=== PATIENT | male | born 1945 | race Caucasian/White ===

== ENCOUNTER → 2016-08-24 | Outpatient (CLI) | payer MEDICARE, BC | LOC: RAD 09:20 | PROVIDERS: ATTEND Internal Medicine Gastroenterology | DX: K70.30 Alcoholic cirrhosis of liver without ascites (principal) | CPT/HCPCS: 74170; 82565 ==

== ENCOUNTER → 2016-10-10 | Outpatient (CLI) | payer MEDICARE, BC ==
--- NOTE | 2016-10-10 13:40 | RADIOLOGY REPORT (SQ) ---
EXAM DESCRIPTION: U/S RETROPERITON (RENAL/AORTA) COMPLETED DATE/TIME: 10/10/2016 10:29 am REASON FOR STUDY: ABN KIDNEY FUNCTION TEST (R94.4) R94.4 ABNORMAL RESULTS OF KIDNEY FUNCTION STUDIE S COMPARISON: CT abdomen pelvis 08/24/2016, 01/14/2016, 08/26/2015 TECHNIQUE: Dynamic and static grayscale images acquired of the kidneys and bladder and recorded on P ACS. Additional selected color Doppler and spectral images recorded. LIMITATIONS: None. FINDINGS: RIGHT KIDNEY: 11.2 cm in length with mild diffuse cortical thinning and increased echogeni city. No solid or suspicious masses. No hydronephrosis. No calcifications. LEFT KIDNEY: 11.7 cm in length with mild diffuse cortical thinning and increased echogenicity. Zenaida l echogenicity. No solid or suspicious masses. No hydronephrosis. No calcifications. BLADDER: Decompressed, not well seen. Left ureteral jet identified. OTHER FINDINGS: No other significant finding. IMPRESSION: No hydronephrosis. Bilateral cortical thinning and mild increased echogenicity from medical renal disease TECHNICAL DOCUMENTATION: JOB ID: [id number]- All Rights Reserved
== END ==
LOC: RAD 09:57
PROVIDERS: ATTEND Physician Assistant
DX: R94.4 Abnormal results of kidney function studies (principal)
CPT/HCPCS: 76770

== ENCOUNTER → 2016-11-12 | Outpatient (CLI) | payer MEDICARE, BC ==
[2016-11-12 17:52] LABS: APPEARANCE,URINE CLEAR; BILIRUBIN,URINE NEGATIVE (NEGATIVE); GLUCOSE, URINE NEGATIVE (NEGATIVE); KETONES,URINE NEGATIVE (NEGATIVE); LEUKOCYTE ESTERASE,URINE NEGATIVE (NEGATIVE); NITRITE,URINE NEGATIVE (NEGATIVE); PROTEIN,URINE 100 mg/dL (NEGATIVE); URINE SPECIFIC GRAVITY 1.013; UROBILINOGEN,URINE NEGATIVE mg/dL (<2.0)
[2016-11-12 17:58] LABS: ABSOLUTE EOSINOPHILS # (AUTO) 0.1 10^3/uL (0.0-0.6); ABSOLUTE LYMPHOCYTES (AUTO) 0.5 10^3/uL (0.5-4.7); ABSOLUTE MONOCYTES (AUTO) 0.3 10^3/uL (0.1-1.4); ABSOLUTE NEUT (AUTO) 1.9 10^3/uL (1.7-8.2); BASOPHILS % (AUTO) 1.1 % (0-2); EOSINOPHILS % (AUTO) 3.8 % (0-6); HEMATOCRIT 32.6 % (37.9-51.0); HEMOGLOBIN 11.6 g/dL (13.5-17.0); HGB HCT DIFFERENCE 2.2; LYMPHOCYTES % (AUTO) 17.1 % (13-45); MEAN CORPUSCULAR HEMOGLOBIN 31.6 pg (27.0-33.4); MEAN CORPUSCULAR HGB CONC 35.6 g/dL (32.0-36.0); MEAN CORPUSCULAR VOLUME 89 fl (80-97); MONOCYTES % (AUTO) 10.7 % (3-13); RED BLOOD COUNT 3.67 10^6/uL (4.35-5.55); RED CELL DISTRIBUTION WIDTH 13.6 % (11.5-14.0); SEGMENTED NEUTROPHILS % (AUTO) 67.3 % (42-78); WHITE BLOOD COUNT 2.9 10^3/uL (4.0-10.5)
[2016-11-12 17:59] LABS: PROTHROMBIN TIME 15.2 SEC (11.4-15.4)
[2016-11-12 18:00] LABS: PARTIAL THROMBOPLASTIN TIME 32.1 SEC (23.5-35.8)
[2016-11-12 18:14] LABS: ALANINE AMINOTRANSFERASE 27 U/L (21-72); ALBUMIN 3.3 g/dL (3.5-5.0); ALKALINE PHOSPHATASE 65 U/L (38-126); ANION GAP 8 (5-19); ASPARTATE AMINO TRANSFERASE 34 U/L (17-59); BILIRUBIN,DIRECT 0.4 mg/dL (0.0-0.4); BILIRUBIN,TOTAL 0.8 mg/dL (0.2-1.3); BLOOD UREA NITROGEN 29 mg/dL (7-20); CALCIUM 8.8 mg/dL (8.4-10.2); CARBON DIOXIDE 26 mmol/L (22-30); CHLORIDE 108 mmol/L (98-107); CREATININE RESULT 1.82 mg/dL (0.52-1.25); GLUCOSE 141 mg/dL (75-110); POTASSIUM 5.5 mmol/L (3.6-5.0); SODIUM 142.2 mmol/L (137-145); TOTAL PROTEIN 7.1 g/dL (6.3-8.2)
== END ==
LOC: OD 16:17
PROVIDERS: ATTEND Internal Medicine Nephrology
DX: N18.3 Chronic kidney disease, stage 3 (moderate) (principal); R18.8 Other ascites; K74.69 Other cirrhosis of liver; I12.9 Hypertensive chronic kidney disease with stage 1 through stage 4 chronic kidney disease, or unspecified chronic kidney disease
CPT/HCPCS: 36415; 80053; 81001; 85025; 85610; 85730

== ENCOUNTER → 2016-11-15 | Outpatient (CLI) | payer MEDICARE, BC ==
[2016-11-15 13:29] LABS: ANION GAP 10 (5-19); BLOOD UREA NITROGEN 26 mg/dL (7-20); CALCIUM 8.6 mg/dL (8.4-10.2); CARBON DIOXIDE 23 mmol/L (22-30); CHLORIDE 107 mmol/L (98-107); CREATININE RESULT 1.84 mg/dL (0.52-1.25); GLUCOSE 105 mg/dL (75-110); POTASSIUM 4.7 mmol/L (3.6-5.0); SODIUM 139.7 mmol/L (137-145)
== END ==
LOC: OD 12:37
PROVIDERS: ATTEND Internal Medicine Nephrology
DX: I12.9 Hypertensive chronic kidney disease with stage 1 through stage 4 chronic kidney disease, or unspecified chronic kidney disease (principal); N18.3 Chronic kidney disease, stage 3 (moderate); R18.8 Other ascites; K74.69 Other cirrhosis of liver
CPT/HCPCS: 36415; 80048; 82140

== ENCOUNTER → 2016-12-24 | Outpatient (CLI) | payer MEDICARE, BC ==
[2016-12-24 15:24] LABS: ALANINE AMINOTRANSFERASE 29 U/L (21-72); ALBUMIN 3.1 g/dL (3.5-5.0); ALKALINE PHOSPHATASE 62 U/L (38-126); ANION GAP 7 (5-19); ASPARTATE AMINO TRANSFERASE 34 U/L (17-59); BILIRUBIN,DIRECT 0.4 mg/dL (0.0-0.4); BILIRUBIN,TOTAL 0.8 mg/dL (0.2-1.3); BLOOD UREA NITROGEN 26 mg/dL (7-20); CALCIUM 9.1 mg/dL (8.4-10.2); CARBON DIOXIDE 26 mmol/L (22-30); CHLORIDE 107 mmol/L (98-107); CREATININE RESULT 1.84 mg/dL (0.52-1.25); GLUCOSE 105 mg/dL (75-110); MAGNESIUM 1.5 mg/dL (1.6-2.3); PHOSPHORUS 3.8 mg/dL (2.5-4.5); POTASSIUM 5.3 mmol/L (3.6-5.0); SODIUM 139.5 mmol/L (137-145); TOTAL PROTEIN 6.6 g/dL (6.3-8.2)
[2016-12-24 16:23] LABS: CALCIUM 9.1 mg/dL (8.4-10.2)
[2016-12-24 16:24] LABS: ALBUMIN 3.1 g/dL (3.5-5.0); ANION GAP 7 (5-19); BLOOD UREA NITROGEN 26 mg/dL (7-20); CARBON DIOXIDE 26 mmol/L (22-30); CHLORIDE 107 mmol/L (98-107); CREATININE RESULT 1.84 mg/dL (0.52-1.25); GLUCOSE 105 mg/dL (75-110); POTASSIUM 5.3 mmol/L (3.6-5.0); SODIUM 139.5 mmol/L (137-145)
[2016-12-24 16:25] LABS: ALANINE AMINOTRANSFERASE 29 U/L (21-72); ALKALINE PHOSPHATASE 62 U/L (38-126); ASPARTATE AMINO TRANSFERASE 34 U/L (17-59); BILIRUBIN,DIRECT 0.4 mg/dL (0.0-0.4); BILIRUBIN,TOTAL 0.8 mg/dL (0.2-1.3)
[2016-12-24 16:26] LABS: TOTAL PROTEIN 6.6 g/dL (6.3-8.2)
[2016-12-25 18:51] LABS: HEMATOCRIT 29.3 % (37.9-51.0); HEMOGLOBIN 10.5 g/dL (13.5-17.0); HGB HCT DIFFERENCE 2.2; MEAN CORPUSCULAR HEMOGLOBIN 31.9 pg (27.0-33.4); MEAN CORPUSCULAR HGB CONC 35.7 g/dL (32.0-36.0); MEAN CORPUSCULAR VOLUME 89 fl (80-97); RED BLOOD COUNT 3.28 10^6/uL (4.35-5.55); RED CELL DISTRIBUTION WIDTH 13.9 % (11.5-14.0); WHITE BLOOD COUNT 2.5 10^3/uL (4.0-10.5)
== END ==
LOC: OD 13:37
PROVIDERS: ATTEND Physician Assistant Surgical
DX: K70.30 Alcoholic cirrhosis of liver without ascites (principal); G93.41 Metabolic encephalopathy; K76.6 Portal hypertension; R53.83 Other fatigue
CPT/HCPCS: 36415; 80053; 82105; 83735; 83970; 84100; 85027

== ENCOUNTER → 2017-01-25 | Outpatient (CLI) | payer MEDICARE, BC ==
[2017-01-25 14:56] LABS: HEMATOCRIT 30.5 % (37.9-51.0); HEMOGLOBIN 10.9 g/dL (13.5-17.0); HGB HCT DIFFERENCE 2.2; MEAN CORPUSCULAR HEMOGLOBIN 32.2 pg (27.0-33.4); MEAN CORPUSCULAR HGB CONC 35.9 g/dL (32.0-36.0); MEAN CORPUSCULAR VOLUME 90 fl (80-97); WHITE BLOOD COUNT 2.5 10^3/uL (4.0-10.5)
[2017-01-25 14:57] LABS: ALANINE AMINOTRANSFERASE 31 U/L (21-72); ALKALINE PHOSPHATASE 64 U/L (38-126); ANION GAP 11 (5-19); ASPARTATE AMINO TRANSFERASE 31 U/L (17-59); BILIRUBIN,DIRECT 0.3 mg/dL (0.0-0.4); BILIRUBIN,TOTAL 0.6 mg/dL (0.2-1.3); BLOOD UREA NITROGEN 26 mg/dL (7-20); CALCIUM 8.2 mg/dL (8.4-10.2); CARBON DIOXIDE 23 mmol/L (22-30); CHLORIDE 109 mmol/L (98-107); CREATININE RESULT 1.81 mg/dL (0.52-1.25); GLUCOSE 178 mg/dL (75-110); MAGNESIUM 1.9 mg/dL (1.6-2.3); POTASSIUM 4.8 mmol/L (3.6-5.0); SODIUM 143.2 mmol/L (137-145); TOTAL PROTEIN 6.3 g/dL (6.3-8.2)
== END ==
LOC: OD 13:10
PROVIDERS: ATTEND Internal Medicine Nephrology
DX: N18.3 Chronic kidney disease, stage 3 (moderate) (principal); E87.5 Hyperkalemia; R18.8 Other ascites
CPT/HCPCS: 36415; 80053; 83735; 85027

== ENCOUNTER → 2017-03-18 | Outpatient (CLI) | payer MEDICARE, BC ==
[2017-03-18 12:09] LABS: HEMATOCRIT 28.7 % (37.9-51.0); HGB HCT DIFFERENCE 1.3; MEAN CORPUSCULAR HEMOGLOBIN 30.7 pg (27.0-33.4); MEAN CORPUSCULAR HGB CONC 34.7 g/dL (32.0-36.0); MEAN CORPUSCULAR VOLUME 89 fl (80-97); PROTHROMBIN TIME 15.9 SEC (11.4-15.4); RED BLOOD COUNT 3.24 10^6/uL (4.35-5.55); RED CELL DISTRIBUTION WIDTH 13.8 % (11.5-14.0); WHITE BLOOD COUNT 3.4 10^3/uL (4.0-10.5)
[2017-03-18 12:37] LABS: ALANINE AMINOTRANSFERASE 30 U/L (21-72); ALBUMIN 2.9 g/dL (3.5-5.0); ALKALINE PHOSPHATASE 78 U/L (38-126); ANION GAP 8 (5-19); ASPARTATE AMINO TRANSFERASE 42 U/L (17-59); BILIRUBIN,DIRECT 0.4 mg/dL (0.0-0.4); BILIRUBIN,TOTAL 0.9 mg/dL (0.2-1.3); BLOOD UREA NITROGEN 33 mg/dL (7-20); CALCIUM 8.6 mg/dL (8.4-10.2); CARBON DIOXIDE 25 mmol/L (22-30); CHLORIDE 112 mmol/L (98-107); CREATININE RESULT 2.18 mg/dL (0.52-1.25); GLUCOSE 112 mg/dL (75-110); POTASSIUM 5.2 mmol/L (3.6-5.0); SODIUM 144.7 mmol/L (137-145); TOTAL PROTEIN 6.5 g/dL (6.3-8.2)
== END ==
LOC: LAB 11:43
PROVIDERS: ATTEND Physician Assistant Surgical
DX: G93.41 Metabolic encephalopathy (principal); K70.31 Alcoholic cirrhosis of liver with ascites
CPT/HCPCS: 36415; 80053; 82140; 85027; 85610

== ENCOUNTER 2017-03-22 07:33 | Day surgery (SDC) | payer MEDICARE, BC ==
[2017-03-22 08:02] LABS: HEMATOCRIT 28.3 % (37.9-51.0); HEMOGLOBIN 9.9 g/dL (13.5-17.0); HGB HCT DIFFERENCE 1.4; MEAN CORPUSCULAR HEMOGLOBIN 31.1 pg (27.0-33.4); MEAN CORPUSCULAR VOLUME 89 fl (80-97); RED BLOOD COUNT 3.18 10^6/uL (4.35-5.55); RED CELL DISTRIBUTION WIDTH 13.6 % (11.5-14.0); WHITE BLOOD COUNT 3.8 10^3/uL (4.0-10.5)
[2017-03-22 08:07] LABS: PARTIAL THROMBOPLASTIN TIME 33.4 SEC (23.5-35.8); PROTHROMBIN TIME 16.2 SEC (11.4-15.4)
[2017-03-22 08:15] LABS: BLOOD UREA NITROGEN 30 mg/dL (7-20); CREATININE RESULT 2.04 mg/dL (0.52-1.25); GLUCOSE 112 mg/dL (75-110)
[2017-03-22] MEDS ORDERED: ALBUMIN HUMAN 250 ML IV PRN (11:00)
[2017-03-22 12:15] LABS: FLUID TYPE PERITONEAL; STAIN REACTIVITY CHECK ACCEPTABLE
[2017-03-22 12:16] LABS: FLUID APPEARANCE CLOUDY; FLUID RBC DILUENT USED SALINE; FLUID RBC DILUTION FACTOR 10; FLUID RBC SIDE 1 129; FLUID RBC SIDE 2 119; TOTAL RBC SQUARES COUNTED FLD 225
[2017-03-22 12:52] VITALS: BP 174/74
--- NOTE | 2017-03-22 13:45 | RADIOLOGY REPORT (SQ) ---
EXAM DESCRIPTION: U/S ABD PARACENTESIS COMPLETED DATE/TIME: 03/22/2017 11:39 am REASON FOR STUDY: ASCITES COMPARISON CT abdomen pelvis 08/24/2016 Abdominal ultrasound 08/12/2015, 10/14/2014 LIMITATIONS: None. PROCEDURE: After obtaining informed consent, the patient was brought to the ultrasound suite. The p rocedure was performed with the patient on a gurney. Ultrasound was used to identify a prominent poc ket of ascites in the right lower quadrant. An appropriate access site was selected. The patient wa s prepped and draped in usual sterile fashion. The access site was anesthetized with 7 mL 1% lidoca ine. A Wdzd-V-Ulscxnxk needle was advanced into the fluid. After aspiration of fluid the needle, th e catheter was advanced off the needle into the fluid. A total of 8,000 mL of cloudy straw-colored f luid was removed. The patient tolerated the procedure well left the department in satisfactory condit ion. Specimens were sent for testing as per Dr. Ernst IMPRESSION: Successful ultrasound-guided diagnostic and therapeutic paracentesis COMMENT: Patient medication list reviewed: Yes- Quality ID# [id number]:Eligible professional attests to doc umenting in the medical record they obtained, updated, or reviewed the patient's current medications. Quality ID #76: The patient was prepped and draped using maximum sterile barrier technique including cap, mask, sterile gown, sterile gloves, a large sterile sheet, hand hygiene, and 2% Chlorhexidine fo r cutaneous antisepsis. When ultrasound is used, sterile ultrasound techniques are followed requiring sterile gel and sterile probes. Quality ID #145: Final reports for procedures using fluoroscopy that document radiation exposure dianelys dylan, or exposure time and number of fluorographic images (if radiation exposure indices are not avail able) TECHNICAL DOCUMENTATION: JOB ID: [id number] [employer]- All Rights Reserved
== END 2017-03-22 12:45 | disposition home or self-care (01) ==
LOC: RAD 07:33
PROVIDERS: ATTEND Internal Medicine Gastroenterology
PROC: 0W9F3ZZ Drainage of Abdominal Wall, Percutaneous Approach (ICD-10-PCS; principal; 2017-03-22)
DX: R18.8 Other ascites (principal); Z79.01 Long term (current) use of anticoagulants; Z79.899 Other long term (current) drug therapy
CPT/HCPCS: 36415; 84520; 82565; 82947; 85027; 85610; 85730; 89050; 88162; 49083; P9047

== ENCOUNTER 2017-04-09 07:31 | Day surgery (SDC) | payer MEDICARE, BC ==
[2017-04-09] MEDS ORDERED: ALBUMIN HUMAN 250 ML IV PRN (07:47)
[2017-04-09 08:30] LABS: HEMATOCRIT 28.9 % (37.9-51.0); MEAN CORPUSCULAR HEMOGLOBIN 30.6 pg (27.0-33.4); MEAN CORPUSCULAR HGB CONC 34.7 g/dL (32.0-36.0); MEAN CORPUSCULAR VOLUME 88 fl (80-97); PLATELET COUNT 105 10^3/uL (150-450); RED BLOOD COUNT 3.28 10^6/uL (4.35-5.55); WHITE BLOOD COUNT 4.3 10^3/uL (4.0-10.5)
[2017-04-09 10:12] LABS: BLOOD UREA NITROGEN 38 mg/dL (7-20); GLUCOSE 115 mg/dL (75-110)
[2017-04-09 10:16] LABS: INTERNATIONAL RATION (INR) 1.26; PROTHROMBIN TIME 16.6 SEC (11.4-15.4)
[2017-04-09 10:17] LABS: PARTIAL THROMBOPLASTIN TIME 39.1 SEC (23.5-35.8)
--- NOTE | 2017-04-09 14:48 | RADIOLOGY REPORT (SQ) ---
EXAM DESCRIPTION: U/S ABD PARACENTESIS COMPLETED DATE/TIME: 04/09/2017 1:17 pm REASON FOR STUDY: ASCITES COMPARISON None. LIMITATIONS: None. PROCEDURE: After obtaining informed consent, the patient was brought to the ultrasound suite. The p rocedure was performed with the patient on a gurney. Ultrasound was used to identify a prominent poc ket of ascites in the right lower quadrant. An appropriate access site was selected. The patient wa s prepped and draped in usual sterile fashion. The access site was anesthetized with 5 mL 1% lidoca ine. A Qafh-V-Wwxlwakj needle was advanced into the fluid. After aspiration of fluid the needle, th e catheter was advanced off the needle into the fluid. A total of 7,850 mL of cloudy yellow fluid wa s removed. The patient tolerated the procedure well left the department in satisfactory condition. IMPRESSION: Successful ultrasound-guided paracentesis COMMENT: Patient medication list reviewed: Yes- Quality ID# [id number]:Eligible professional attests to doc umenting in the medical record they obtained, updated, or reviewed the patient's current medications. Quality ID #[id number]: The patient was prepped and draped using maximum sterile barrier technique including cap, mask, sterile gown, sterile gloves, a large sterile sheet, hand hygiene, and 2% Chlorhexidine fo r cutaneous antisepsis. When ultrasound is used, sterile ultrasound techniques are followed requiring sterile gel and sterile probes. Quality ID #[id number]: Final reports for procedures using fluoroscopy that document radiation exposure dianelys dylan, or exposure time and number of fluorographic images (if radiation exposure indices are not avail able) TECHNICAL DOCUMENTATION: JOB ID: [id number] [employer]- All Rights Reserved
[2017-04-09 16:38] VITALS: BP 145/61
== END 2017-04-09 14:20 | disposition home or self-care (01) ==
LOC: RAD 07:31
PROVIDERS: ATTEND Family Medicine
PROC: 0W9F3ZZ Drainage of Abdominal Wall, Percutaneous Approach (ICD-10-PCS; principal; 2017-04-09)
DX: K70.31 Alcoholic cirrhosis of liver with ascites (principal); K21.9 Gastro-esophageal reflux disease without esophagitis; E87.4 Mixed disorder of acid-base balance; E11.9 Type 2 diabetes mellitus without complications; I25.10 Atherosclerotic heart disease of native coronary artery without angina pectoris; F32.9 Major depressive disorder, single episode, unspecified; G93.40 Encephalopathy, unspecified; D69.59 Other secondary thrombocytopenia; I12.9 Hypertensive chronic kidney disease with stage 1 through stage 4 chronic kidney disease, or unspecified chronic kidney disease; N18.2 Chronic kidney disease, stage 2 (mild); Z79.899 Other long term (current) drug therapy; Z79.84 Long term (current) use of oral hypoglycemic drugs; Z79.4 Long term (current) use of insulin
CPT/HCPCS: 36415; 84520; 82565; 82947; 84132; 85027; 85610; 85730; 49083; P9047

== ENCOUNTER 2017-04-14 07:47 | Inpatient (IN) | payer MEDICARE, BC ==
--- NOTE | 2017-04-14 08:14 | ER Document Report ---
ED General - General Chief Complaint: Abdominal Pain >50 Stated Complaint: ABDOMINAL PAIN Time Seen by Provider: 04/14/17 08:04 Mode of Arrival: Ambulatory Information source: Patient Notes: 71-year-old male history of ascites who had 8 L drained on saturday presents with complaints of abd pain. Pt denies any fevers or chills, denies any nausea or vomiting. Pt admits to abd pain but notes its similar ot his previous fluid overload. TRAVEL OUTSIDE OF THE [place] IN LAST 30 DAYS: No - HPI Onset: Just prior to arrival Onset/Duration: Sudden Quality of pain: Cramping Severity: Mild Pain Level: 1 Associated symptoms: Other - Patient states this is similar to his normal pain from the ascites Exacerbated by: Denies Relieved by: Denies Similar symptoms previously: Yes Recently seen / treated by doctor: Yes - Related Data Allergies/Adverse Reactions: No Known Allergies Allergy (Verified 04/14/17 07:48) Past Medical History - Social History Smoking Status: Never Smoker Cigarette use (# per day): No Chew tobacco use (# tins/day): No Smoking Education Provided: No Family History: Reviewed & Not Pertinent - Past Medical History Cardiac Medical History: Reports: Hx Coronary Artery Disease, Hx Heart Attack, Hx Hypertension Pulmonary Medical History: Denies: Hx Asthma, Hx Bronchitis, Hx COPD, Hx Pneumonia Neurological Medical History: Reports: Hx Seizures - hx of 3 years ago x1. Denies: Hx Cerebrovascular Accident Endocrine Medical History: Reports: Hx Diabetes Mellitus Type 2 GI Medical History: Reports: Hx Gastroesophageal Reflux Disease Musculoskeltal Medical History: Denies Hx Arthritis Psychiatric Medical History: Reports: Hx Anxiety, Hx Depression Past Surgical History: Reports: Hx Cardiac Catheterization - Bypassx4, Hx Cholecystectomy, Hx Coronary Artery Bypass Graft - Immunizations Immunizations up to date: Yes Hx Diphtheria, Pertussis, Tetanus Vaccination: Yes Hx Pneumococcal Vaccination: 04/08/08 Review of Systems - Review of Systems Notes: REVIEW OF SYSTEMS: CONSTITUTIONAL : Denies fever, chills, or sweats. Denies recent illness. EENT: Denies eye, ear, throat, or mouth pain or symptoms. Denies nasal or sinus congestion or discharge. Denies throat, tongue, or mouth swelling or difficulty swallowing. CARDIOVASCULAR: Denies chest pain. Denies palpitations or racing or irregular heart beat. Denies ankle edema. RESPIRATORY: Denies cough, cold, or chest congestion. Denies shortness of breath, difficulty breathing, or wheezing. GASTROINTESTINAL: Abdominal pain distention GENITOURINARY: Denies difficulty urinating, painful urination, burning, frequency, blood in urine, or discharge. MUSCULOSKELETAL: Denies back or neck pain or stiffness. Denies joint pain or swelling. SKIN: Denies rash, lesions or sores. HEMATOLOGIC : Denies easy bruising or bleeding. LYMPHATIC: Denies swollen, enlarged glands. NEUROLOGICAL: Denies confusion or altered mental status. Denies passing out or loss of consciousness. Denies dizziness or lightheadedness. Denies headache. Denies weakness or paralysis or loss of use of either side. Denies problems with gait or speech. Denies sensory loss, numbness, or tingling. Denies seizures. PSYCHIATRIC: Denies anxiety or stress. Denies depression, suicidal ideation, or homicidal ideation. ALL OTHER SYSTEMS REVIEWED AND NEGATIVE. Dictation was performed using [employer] voice recognition software PHYSICAL EXAMINATION: GENERAL: Well-appearing, well-nourished and in no acute distress. HEAD: Atraumatic, normocephalic. EYES: Pupils equal round and reactive to light, extraocular movements intact, sclera anicteric, conjunctiva are normal. ENT: Nares patent, oropharynx clear without exudates. Moist mucous membranes. NECK: Normal range of motion, supple without lymphadenopathy LUNGS: Breath sounds clear to auscultation bilaterally and equal. No wheezes rales or rhonchi. HEART: Regular rate and rhythm without murmurs ABDOMEN: Distended abdomen no tenderness upon palpation Musculoskeletal: Normal range of motion, no pitting or edema. No cyanosis. NEUROLOGICAL: Cranial nerves grossly intact. Normal speech, normal gait. Normal sensory, motor exams PSYCH: Normal mood, normal affect. SKIN: Warm, Dry, normal turgor, no rashes or lesions noted. Physical Exam - Vital signs Vitals: Temp Pulse Resp BP Pulse Ox 97.9 F 60 16 155/67 H 100 04/14/17 07:54 04/14/17 07:54 04/14/17 07:54 04/14/17 07:54 04/14/17 07:54 Course - Re-evaluation Re-evalutation: 04/14/17 08:46 Patient is noted to have gone from 112 kg to 102 kg over a 5 day period, I did speak with his primary care physician who requests that we hold off on antibiotics at this time given that the patient's afebrile until tap was performed, Dr diana was gracious enough to perform procedure for us 04/15/17 07:01 It is noted that the peritoneal fluid was quite cloudy, over 4 L was obtained by the surgeon, patient was immediately started on intraperitoneal Rocephin. Patient will be admitted to primary care - Vital Signs Vital signs: Temp Pulse Resp BP Pulse Ox 98.3 F 81 16 158/69 H 100 04/15/17 04:00 04/15/17 04:00 04/15/17 04:00 04/15/17 04:00 04/15/17 04:00 - Laboratory Result Diagrams: 04/14/17 08:15 04/14/17 08:15 Laboratory results interpreted by me: 04/14/17 04/14/17 08:15 10:19 PT 15.8 H Chloride 112 H Carbon Dioxide 19 L BUN 41 H Creatinine 2.09 H Est GFR ( Amer) 38 L Est GFR (Non-Af Amer) 31 L Glucose 120 H Total Protein 6.1 L Albumin 2.8 L Lipase 396.1 H - Diagnostic Test Radiology reviewed: Image reviewed, Reports reviewed Discharge - Discharge Clinical Impression: SBP (spontaneous bacterial peritonitis), Advanced cirrhosis of liver Condition: Poor Disposition: ADMITTED INPATIENT Admitting Provider: [facility] Admitted: Telemetry
--- NOTE | 2017-04-14 09:23 | RADIOLOGY REPORT (SQ) ---
EXAM DESCRIPTION: CT ABD/PELVIS NO ORAL OR IV COMPLETED DATE/TIME: 04/14/2017 9:13 am REASON FOR STUDY: ascites abd pain COMPARISON: Ultrasound from April [address] from 08/24/2016 TECHNIQUE: CT scan of the abdomen and pelvis performed without intravenous or oral contrast. Images reviewed with lung, soft tissue, and bone windows. Reconstructed coronal and sagittal MPR images revi ewed. All images stored on PACS. All CT scanners at this facility use dose modulation, iterative reconstruction, and/or weight based d osing when appropriate to reduce radiation dose to as low as reasonably achievable (ALARA). [facility]: Dose Right [facility]: CareDose [facility]: Dose Right [facility]: Teradose 4D [facility]: Smart BEAT [employer] RADIATION DOSE: CT Rad equipment meets quality standard of care and radiation dose reduction techniq ues were employed. CTDIvol: 19.7 mGy. DLP: 1211 mGy-cm.mGy. LIMITATIONS: None. FINDINGS: LOWER CHEST: No significant findings. No nodules or infiltrates. NON-CONTRASTED LIVER, SPLEEN, ADRENALS: Evaluation limited by lack of IV contrast. No identified sign ificant masses. Again noted is cirrhotic liver and splenomegaly compatible with portal venous hypert ension. PANCREAS: No masses. No peripancreatic inflammatory changes. GALLBLADDER: No identified stones by CT criteria. No inflammatory changes to suggest cholecystitis. RIGHT KIDNEY AND URETER: Atrophic. No suspicious masses. Assessment limited by lack of IV contrast. No significant calcifications. No hydronephrosis or hydroureter. LEFT KIDNEY AND URETER: Atrophic. No suspicious masses. Assessment limited by lack of IV contrast. No significant calcifications. No hydronephrosis or hydroureter. AORTA AND RETROPERITONEUM: Atherosclerotic calcifications. No aneurysm. No retroperitoneal masses or adenopathy. BOWEL AND PERITONEAL CAVITY: Large volume ascites. Small and large bowel loops are grossly normal. APPENDIX: Normal. PELVIS, BLADDER, AND ABDOMINAL WALL:No abnormal masses. No free fluid. Bladder normal. BONES: No significant findings. OTHER: No other significant finding. IMPRESSION: LARGE VOLUME ASCITES IN A PATIENT WITH KNOWN CIRRHOSIS AND PORTAL VENOUS HYPERTENSION LI MITS EVALUATION FOR IDENTIFYING ACUTE INFLAMMATORY PROCESS ESPECIALLY ON THE NONCONTRAST CT. NO URINARY TRACT CALCULI OR HYDRONEPHROSIS. ADDITIONAL CHRONIC CHANGES ABOVE. COMMENT: Quality ID # [id number]: Final reports with documentation of one or more dose reduction techniques (e.g., Automated exposure control, adjustment of the mA and/or kV according to patient size, use of iterative reconstruction technique) TECHNICAL DOCUMENTATION: JOB ID: [id number] [employer]- All Rights Reserved
[2017-04-14 09:35] LABS: ALANINE AMINOTRANSFERASE 29 U/L (21-72); ALBUMIN 2.8 g/dL (3.5-5.0); ALKALINE PHOSPHATASE 62 U/L (38-126); ANION GAP 9 (5-19); ASPARTATE AMINO TRANSFERASE 39 U/L (17-59); BILIRUBIN,DIRECT 0.4 mg/dL (0.0-0.4); BILIRUBIN,TOTAL 0.8 mg/dL (0.2-1.3); BLOOD UREA NITROGEN 41 mg/dL (7-20); CALCIUM 9.2 mg/dL (8.4-10.2); CARBON DIOXIDE 19 mmol/L (22-30); CHLORIDE 112 mmol/L (98-107); GLUCOSE 120 mg/dL (75-110); LIPASE 396.1 U/L (23-300); POTASSIUM 4.8 mmol/L (3.6-5.0); SODIUM 140.2 mmol/L (137-145); TOTAL PROTEIN 6.1 g/dL (6.3-8.2)
[2017-04-14 10:09] LABS: APPEARANCE,URINE CLEAR; BILIRUBIN,URINE NEGATIVE (NEGATIVE); COLOR,URINE YELLOW; GLUCOSE, URINE NEGATIVE (NEGATIVE); KETONES,URINE NEGATIVE (NEGATIVE); LEUKOCYTE ESTERASE,URINE NEGATIVE (NEGATIVE); NITRITE,URINE NEGATIVE (NEGATIVE); PROTEIN,URINE NEGATIVE (NEGATIVE); URINE SPECIFIC GRAVITY 1.012; UROBILINOGEN,URINE NEGATIVE mg/dL (<2.0)
[2017-04-14] MEDS ORDERED: CEFTRIAXONE 2 GM/D5W RTU 2 GM/50 ML RTUPB IV ONE (12:10)
[2017-04-14] MEDS: ALBUMIN HUMAN 50 ML IV SCH ×4 (13:22→15:58)
[2017-04-14] MEDS ORDERED: ALBUMIN HUMAN 100 ML IV ONE (15:21)
--- NOTE | 2017-04-14 17:28 | OPERATIVE REPORT E ---
Operative Report NAME: DAVID SO : 1945 AGE: 71Y DATE OF SURGERY: 04/14/2017 ROOM: PREOPERATIVE DIAGNOSIS: Ascites, possible infected, with liver cirrhosis. POSTOPERATIVE DIAGNOSIS: Ascites, possible infected, with liver cirrhosis. OPERATION: Paracentesis under ultrasound guidance. SURGEON: JAMIE INGRAM M.D. ANESTHESIA: Local. INDICATION: This is a 71-year-old male who had paracentesis done 5 days ago. About 8 L of fluid was removed. There is a question of possible infection and, therefore, repeat paracentesis is ordered primarily to obtain cultures. PROCEDURE: The patient was placed in supine position and the abdomen interrogated with ultrasound. The appropriate site appears to be at the right lower quadrant close to the old paracentesis site. Next, this area was subsequently prepped and draped in the usual sterile fashion. Local anesthesia infiltrated. The puncture site was then enlarged with an 11 blade. Initial placement of needle did not aspirate any fluid. Because of this, a sterile ultrasound was then placed over the right lower quadrant area and appears the fluid is at least 2.5 cm down and total depth is about 5 cm. Next, a paracentesis needle with a sheath was then passed through the puncture site and the needle removed and the sheath connected to wall suction. About 4 L of cloudy fluid was aspirated slowly. Prior to this, about 60 mL of ascites fluid was aspirated, and they were all sent for culture and protein, electrolytes and amylase levels. It took at least half an hour to fill up the 4 L. Following this, 2 gm of Rocephin was injected slowly into the abdominal cavity. The catheter was subsequently pulled out and a sterile Band-Aid placed over the insertion site. The patient's vital signs remained stable for the procedure. The patient remained alert and oriented without any complaints. The patient tolerated the procedure well. DICTATING PHYSICIAN: JAMIE INGRAM M.D. [id number] PHY#: [id number] ID: [id number] JOB#: [id number] ACCT: [id number] cc:JAMIE INGRAM M.D. >
[2017-04-14 21:40] LABS: ABSOLUTE EOSINOPHILS # (AUTO) 0.1 10^3/uL (0.0-0.6); ABSOLUTE LYMPHOCYTES (AUTO) 0.5 10^3/uL (0.5-4.7); ABSOLUTE MONOCYTES (AUTO) 0.6 10^3/uL (0.1-1.4); ABSOLUTE NEUT (AUTO) 2.2 10^3/uL (1.7-8.2); EOSINOPHILS % (AUTO) 3.4 % (0-6); HEMATOCRIT 28.3 % (37.9-51.0); HEMOGLOBIN 9.8 g/dL (13.5-17.0); LYMPHOCYTES % (AUTO) 14.7 % (13-45); MEAN CORPUSCULAR HEMOGLOBIN 30.6 pg (27.0-33.4); MEAN CORPUSCULAR HGB CONC 34.6 g/dL (32.0-36.0); MEAN CORPUSCULAR VOLUME 88 fl (80-97); MONOCYTES % (AUTO) 17.1 % (3-13); RED CELL DISTRIBUTION WIDTH 14.2 % (11.5-14.0); SEGMENTED NEUTROPHILS % (AUTO) 63.8 % (42-78); TOTAL CELLS COUNTED % (AUTO) 100 %; WHITE BLOOD COUNT 3.4 10^3/uL (4.0-10.5)
[2017-04-14] MEDS ORDERED: DEXTROSE 40% GEL 15 GM TUBE X 2 PO PRN (22:46)
[2017-04-14] MEDS ORDERED: DEXTROSE 50%-WATER SYRINGE 25 GM/50 ML DOSE IV PRN (22:46)
[2017-04-14] MEDS ORDERED: DEXTROSE 40% GEL 15 GM TUBE PO PRN (22:46)
[2017-04-14] MEDS ORDERED: DEXTROSE 50%-WATER SYRINGE 12.5 GM/25 ML DOSE IV PRN (22:46)
[2017-04-14] MEDS ORDERED: GLUCAGON,HUMAN RECOMB 1 MG INJ IM PRN (22:46)
--- NOTE | 2017-04-14 23:40 | EKG REPORT ---
SEVERITY:- ABNORMAL ECG - SINUS RHYTHM MULTIPLE ATRIAL PREMATURE COMPLEXES BORDERLINE T ABNORMALITIES, ANT-LAT LEADS : Confirmed by: Iwona Mark 14-Apr-2017 23:39:55
[2017-04-15] MEDS ORDERED: INSULIN DETEMIR 100 UNIT/ML 3 ML PEN SUBCUT ONE (01:30)
--- NOTE | 2017-04-15 01:44 | HISTORY AND PHYSICAL E ---
History and Physical NAME: DAVID SO : 1945 AGE: 71Y ADMITTED: 04/14/2017 ROOM: 420 CHIEF COMPLAINT: Abdominal pain. HISTORY OF PRESENT ILLNESS: This is a patient of mine with a history of cirrhosis of the liver, history of thrombocytopenia, history of hypertension, hyperlipidemia, type 2 diabetes mellitus, history of alcoholism with recently increasing recurrent ascites, however, last paracentesis was done on Saturday where they removed almost 8 liters of fluid before 2 weeks back was removed another 8 liters of fluid. The patient is currently is seen by Dr. Ernst. The patient apparently is doing fair for several years, but since the last 3-4 months the patient's kidney function has gotten worse. Currently see Dr. Robertson and this ascites is also getting worse. The patient also with significant history of hepatic encephalopathy and currently taking lactulose. The patient came to the emergency department with complaints of abdominal discomfort but no fevers, no other symptoms. Initial workup in the ER with the CBC and Chem-[address] abdomen and pelvis was still significance of the ascites even the 5 days before they removed 8 liters of fluids and were concerned about peritonitis. General surgery was consulted and removed 4 liters of the fluid with cloudy fluids which is mostly likely a possible peritonitis. The patient has received Rocephin and discussed with Dr. Ernst and suggested to start the antibiotic and follow the cultures and admit him to the hospital for further evaluation. This patient otherwise denied any chest pain, denied any shortness of breath. The patient's platelet count is [address] Nair as an outpatient with chronic liver disease. The is at the bedside secondary to the patient's current condition, patient expressed DNR/DNI. PAST MEDICAL HISTORY: 1. Hepatic encephalopathy currently on lactulose. 2. Cirrhosis of the liver. 3. Thrombocytopenia due to the above condition. 4. History of alcoholism in the past and led to the above conditions. 5. Type 2 diabetes mellitus insulin dependent. 6. Hyperlipidemia. 7. Chronic kidney disease. 8. History of seizure disorder. 9. Depression/anxiety. FAMILY HISTORY: Noncontributory. REVIEW OF SYSTEMS: As above, all other pertinents is negative. MEDICATIONS: All reviewed in the patient's chart. PHYSICAL EXAMINATION: VITAL SIGNS: Blood pressure was 145/98, temperature was 98.1, pulse was 80-90, respirations was 16, O2 saturation was 100*% on room air. GENERAL: The patient is alert, awake, oriented x3, in no acute distress. HEAD AND NECK: Normocephalic. PERRLA. LUNGS: No wheezing, no rales, no rhonchi. HEART: S1 and S2 are present. ABDOMEN: Distended, ascites is present, nontender. EXTREMITIES: No edema. NEUROLOGIC: The patient moves all 4 extremities. Alert, awake, oriented x3. DIAGNOSTIC STUDIES: The patient's lab is all reviewed. CT abdomen and pelvis was reviewed, it was positive for ascites. ASSESSMENT: 1. Recurrent ascites, most likely related to alcoholic cirrhosis of the liver with a negative cytology within the last paracentesis. Consult Dr. Ernst for further evaluation. The patient already removed 4 liters of the fluid. 2. Abdominal pain due to the bacterial peritonitis. I will start the patient on IV Rocephin, wait for the culture and sensitivities. 3. Type 2 diabetes mellitus. 4. Alcoholic cirrhosis of the liver. 5. Thrombocytopenia. 6. Hyperlipidemia. 7. Hypertension. 8. Depression. 9. Seizure disorder. PLAN: At this point continue IV antibiotics. Continue to monitor the patient. The patient expressed DNR/DNI and the is agreeing at the bedside. Discussed with Dr. Ernst, put in the consult for him. Continue his other medications. I hope the patient continues to be improved. TIME SPENT: More than 45 minutes spent with the patient in the emergency department. DICTATING PHYSICIAN: YOLI PAYAN M.D. [id number] Mauricio#: [id number] ID: [id number] JOB#: [id number] ACCT: [id number] cc: >
[2017-04-15 04:18] LABS: PROTHROMBIN TIME 15.8 SEC (11.4-15.4)
[2017-04-15 04:19] LABS: INTERNATIONAL RATION (INR) 1.18
[2017-04-15] MEDS: HYDRALAZINE HCL 25 MG TABLET PO SCH ×3 (06:48→22:04)
[2017-04-15] MEDS: LACTULOSE SYRUP 20 GM/30 ML UDCUP PO SCH ×3 (06:49→22:05)
[2017-04-15 07:28] LABS: PLATELET COUNT 78 10^3/uL (150-450)
[2017-04-15 07:32] LABS: FLUID APPEARANCE CLOUDY; FLUID COLOR LIGHT YELLOW; FLUID SOURCE ABDOMEN; FLUID TYPE PERITONEAL; FLUID VISCOSITY LIQUID
[2017-04-15 07:34] LABS: BLOOD UREA NITROGEN 43 mg/dL (7-20); GLUCOSE 111 mg/dL (75-110)
[2017-04-15 07:41] LABS: ABSOLUTE EOSINOPHILS # (AUTO) 0.1 10^3/uL (0.0-0.6); ABSOLUTE LYMPHOCYTES (AUTO) 0.4 10^3/uL (0.5-4.7); ABSOLUTE MONOCYTES (AUTO) 0.4 10^3/uL (0.1-1.4); ABSOLUTE NEUT (AUTO) 1.5 10^3/uL (1.7-8.2); BASOPHILS % (AUTO) 1.2 % (0-2); EOSINOPHILS % (AUTO) 2.7 % (0-6); HEMATOCRIT 26.5 % (37.9-51.0); HEMOGLOBIN 9.2 g/dL (13.5-17.0); LYMPHOCYTES % (AUTO) 16.9 % (13-45); MEAN CORPUSCULAR HEMOGLOBIN 30.5 pg (27.0-33.4); MEAN CORPUSCULAR HGB CONC 34.6 g/dL (32.0-36.0); MEAN CORPUSCULAR VOLUME 88 fl (80-97); MONOCYTES % (AUTO) 18.1 % (3-13); RED CELL DISTRIBUTION WIDTH 14.3 % (11.5-14.0); SEGMENTED NEUTROPHILS % (AUTO) 61.1 % (42-78); TOTAL CELLS COUNTED % (AUTO) 100 %; WHITE BLOOD COUNT 2.4 10^3/uL (4.0-10.5)
[2017-04-15] MEDS ORDERED: FUROSEMIDE 20 MG TABLET PO SCH (08:00)
[2017-04-15 08:11] LABS: ANION GAP 6 (5-19); CARBON DIOXIDE 26 mmol/L (22-30); CHLORIDE 109 mmol/L (98-107); POTASSIUM 4.5 mmol/L (3.6-5.0); SODIUM 141.4 mmol/L (137-145)
[2017-04-15 08:15] LABS: PLATELET COUNT 72 10^3/uL (150-450)
[2017-04-15] MEDS ORDERED: INSULIN LISPRO 100 UNIT/ML 3 ML VIAL ONE (08:57)
--- NOTE | 2017-04-15 09:56 | RADIOLOGY REPORT (SQ) ---
EXAM DESCRIPTION: U/S ABDOMEN LIMITED W/O DOP COMPLETED DATE/TIME: 04/14/2017 11:43 pm REASON FOR STUDY: paracentesis COMPARISON: CT from 04/14/2017 TECHNIQUE: Limited Static and real time culp scale imaging performed of the right lower quadrant. LIMITATIONS: Limited an examination performed. FINDINGS: ASCITES: Large volume ascites right lower quadrant as seen on CT. OTHER: No other significant finding. IMPRESSION: LARGE VOLUME ASCITES. NO SIGNIFICANT CHANGE FROM CT. TECHNICAL DOCUMENTATION: JOB ID: [id number] [employer]- All Rights Reserved
[2017-04-15] MEDS ORDERED: VITAMIN B1 100 MG PO SCH (10:00)
[2017-04-15] MEDS ORDERED: DHA PO SCH (10:00)
[2017-04-15] MEDS ORDERED: FISH OIL PO SCH (10:00)
[2017-04-15] MEDS ORDERED: IRON 65 MG PO SCH (10:00)
[2017-04-15] MEDS ORDERED: EPA PO SCH (10:00)
--- NOTE | 2017-04-15 10:51 | PDOC PROGRESS REPORT ---
Subjective Progress Note for:: 04/15/17 Subjective:: Patient is feeling much better this morning patients have a full liter of the fluid is out yesterday Patient's fluid is a cloudy appearance most likely suggesting bacterial peritonitis but will still waiting for the culture Reason For Visit: BACTERAL PERITENITIS Physical Exam Vital Signs: Temp Pulse Resp BP Pulse Ox 97.8 F 80 16 166/64 H 99 04/15/17 08:07 04/15/17 08:07 04/15/17 08:07 04/15/17 08:07 04/15/17 08:07 Intake & Output 04/14/17 04/15/17 04/16/17 06:59 06:59 06:59 Intake Total 444 Output Total 800 Balance -356 General appearance: PRESENT: no acute distress, well-developed, well-nourished Head exam: PRESENT: atraumatic, normocephalic Eye exam: PRESENT: conjunctiva pink, EOMI, PERRLA. ABSENT: scleral icterus Ear exam: PRESENT: normal external ear exam Mouth exam: PRESENT: moist, tongue midline Neck exam: PRESENT: full ROM. ABSENT: carotid bruit, JVD, lymphadenopathy, thyromegaly Cardiovascular exam: PRESENT: RRR. ABSENT: diastolic murmur, rubs, systolic murmur Pulses: PRESENT: normal dorsalis pedis pul, +2 pedal pulses bilateral Vascular exam: PRESENT: normal capillary refill GI/Abdominal exam: PRESENT: ascites, distended, normal bowel sounds, soft. ABSENT: guarding, mass, organolmegaly, rebound, tenderness Rectal exam: PRESENT: deferred Extremities exam: ABSENT: pedal edema Musculoskeletal exam: PRESENT: ambulatory Neurological exam: PRESENT: alert, awake, oriented to person, oriented to place , oriented to time, oriented to situation, CN II-XII grossly intact. ABSENT: motor sensory deficit Psychiatric exam: PRESENT: appropriate affect, normal mood. ABSENT: homicidal ideation, suicidal ideation Skin exam: PRESENT: dry, intact, warm. ABSENT: cyanosis, rash Results Laboratory Results: 04/15/17 07:02 04/15/17 07:02 04/15/17 04/15/17 07:02 07:02 WBC 2.4 L RBC 3.00 L Hgb 9.2 L Hct 26.5 L MCV 88 MCH 30.5 MCHC 34.6 RDW 14.3 H Plt Count 72 L Seg Neutrophils % 61.1 Lymphocytes % 16.9 Monocytes % 18.1 H Eosinophils % 2.7 Basophils % 1.2 Absolute Neutrophils 1.5 L Absolute Lymphocytes 0.4 L Absolute Monocytes 0.4 Absolute Eosinophils 0.1 Absolute Basophils 0.0 Sodium 141.4 Potassium 4.5 Chloride 109 H Carbon Dioxide 26 Anion Gap 6 BUN 43 H Creatinine 2.06 H Est GFR ( Amer) 39 L Est GFR (Non-Af Amer) 32 L Glucose 111 H Calcium 9.0 Impressions: Abdomen/Pelvis CT 04/14/17 08:40 IMPRESSION: LARGE VOLUME ASCITES IN A PATIENT WITH KNOWN CIRRHOSIS AND PORTAL VENOUS HYPERTENSION LIMITS EVALUATION FOR IDENTIFYING ACUTE INFLAMMATORY PROCESS ESPECIALLY ON THE NONCONTRAST CT. NO URINARY TRACT CALCULI OR HYDRONEPHROSIS. ADDITIONAL CHRONIC CHANGES ABOVE. Abdomen Ultrasound 04/14/17 10:18 IMPRESSION: LARGE VOLUME ASCITES. NO SIGNIFICANT CHANGE FROM CT. Assessment & Plan - Diagnosis (1) SBP (spontaneous bacterial peritonitis) Is this a current diagnosis for this admission?: Yes Plan: Continues to IV Rocephin wait for culture and sensitivity (2) Ascites due to alcoholic cirrhosis Is this a current diagnosis for this admission?: Yes Plan: Recurrent ascites continues to monitor the patient (3) Hepatic encephalopathy Is this a current diagnosis for this admission?: Yes Plan: Continues to lactulose (4) Type 2 diabetes mellitus Qualifiers: Diabetes mellitus complication status: with unspecified complications Is this a current diagnosis for this admission?: Yes Plan: Continues to current medications (5) Kidney disease Is this a current diagnosis for this admission?: Yes Plan: Chronic kidney disease stage III currently stable (6) Hypertension Qualifiers: Hypertension type: essential hypertension Qualified Code(s): I10 - Essential (primary) hypertension Is this a current diagnosis for this admission?: Yes Plan: Continues to current medications (7) Advanced cirrhosis of liver Is this a current diagnosis for this admission?: Yes Plan: Follow with the Dr. 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
[2017-04-15] MEDS: CEFTRIAXONE 2 GM/D5W RTU 2 GM/50 ML RTUPB IV SCH (11:08)
[2017-04-15] MEDS: LANSOPRAZOLE 30 MG TAB.RAP.DR PO SCH (11:09)
[2017-04-15] MEDS: OMEGA-3 ACID ETHYL ESTERS 1 GM CAPSULE PO SCH (11:09)
[2017-04-15] MEDS: NADOLOL 40 MG TABLET PO SCH (11:09)
[2017-04-15] MEDS: EZETIMIBE 10 MG TABLET PO SCH (11:09)
[2017-04-15] MEDS: RIFAXIMIN 550 MG TABLET PO SCH ×2 (11:09→22:03)
[2017-04-15] MEDS: FERROUS SULFATE 325 MG TABLET PO SCH ×2 (11:10→18:10)
[2017-04-15] MEDS: THIAMINE HCL 100 MG TABLET PO SCH (11:10)
[2017-04-15] MEDS: MAGNESIUM OXIDE 400 MG TABLET PO SCH (11:10)
[2017-04-15] MEDS: INSULIN LISPRO 100 UNIT/ML 3 ML VIAL SUBCUT PRN ×3 (13:23→22:11)
--- NOTE | 2017-04-15 19:55 | PDOC CONSULTATION ---
Consultation Consult Date: 04/15/17 History of Present Illness Admission Date/PCP: 04/14/17 15:45 YOLI PAYAN MD History of Present Illness: This is a 71-year-old patient with history of alcoholic cirrhosis, recurrent encephalopathy, and ascites. He was admitted on 04/14/2017 for abdominal pain and increased abdominal swelling. He has been having more problems with his ascites over the last month. I saw him in the office on 03/18/2017 with an 18 pound weight gain over a couple of weeks. He had a large-volume paracenteses on 03/22/2017 with removal of 8 L of fluid. Cell count and cytology were unremarkable. He again was very distended last week and required 8 L of paracentesis on 04/09/2017. He came in this time complaining of abdominal pain that only lasted for a few hours with increased abdominal swelling. Currently he denies abdominal pain, nausea, or vomiting. He had paracentesis yesterday by the surgeon but only 4 L of fluid was removed. His abdomen remained very distended. According to the patient he has been compliant with his low-salt diet. He tells me his last alcohol drink was many weeks ago Past Medical History Cardiac Medical History: Reports: Coronary Artery Disease, Myocardial Infarction , Hypertension Pulmonary Medical History: Denies: Asthma, Bronchitis, Chronic Obstructive Pulmonary Disease (COPD), Pneumonia Neurological Medical History: Reports: Seizures - hx of 3 years ago x1 Endocrine Medical History: Reports: Diabetes Mellitus Type 2 GI Medical History: Reports: Gastroesophageal Reflux Disease Musculoskeltal Medical History: Denies: Arthritis Psychiatric Medical History: Reports: Depression Hematology: Reports: Anemia Past Surgical History Past Surgical History: Reports: Cardiac Catheterization - Bypassx4, Cholecystectomy, Coronary Artery Bypass Graft Social History Smoking Status: Never Smoker Frequency of Alcohol Use: None Hx Recreational Drug Use: No Hx Prescription Drug Abuse: No Family History Family History: Reviewed & Not Pertinent Parental Family History Reviewed: No Children Family History Reviewed: NA Sibling(s) Family History Reviewed.: NA Medication/Allergy Home Medications: Furosemide [Lasix 40 mg Tablet] 20 mg PO QAM 05/22/12 Insulin Lispro [Humalog Insulin (Lispro) 100 unit/mL] 0 units SUBCUT MEALS PRN 05/22/12 Lactulose [Cephulac Syrup 20 gm/30 ml Udcup] 15 ml PO QID 05/22/12 Lansoprazole 30 mg PO DAILY 05/22/12 Nadolol [Corgard 40 mg Tablet] 20 mg PO DAILY 05/22/12 Ergocalciferol (Vitamin D2) [Vitamin D2] 50,000 unit PO TH@1000 PRN 03/21/17 Escitalopram Oxalate [Lexapro] 20 mg PO QHS 03/21/17 Ezetimibe [Zetia] 10 mg PO DAILY 03/21/17 Fish Oil/Dha/Epa [Fish Oil 1,200 mg Fish Oil] 1 tab PO DAILY 03/21/17 Insulin Detemir [Levemir] 25 unit SQ QHS 03/21/17 Iron 325 mg PO BID 03/21/17 Magnesium Oxide [Magnesium] 400 mg PO DAILY 03/21/17 Rifaximin [Xifaxan] 550 mg PO BID 03/21/17 Hydralazine HCl 25 mg PO Q8 04/09/17 Allergies/Adverse Reactions: No Known Allergies Allergy (Verified 04/14/17 07:48) Review of Systems Review of Systems: General: Patient is alert. He is obese HEENT: There is no pallor or jaundice. PERRLA. Oropharynx normal Respiratory: No chest deformity. No respiratory distress. Chest wall palpitation was unremarkable. Breath sounds were normal Cardiovascular: Heart sounds 1 and 2 normal with no murmurs. Abdominal: Abdomen is soft and distended with fluid. Bowel sounds active. Rectal examination was deferred. Extremities: No edema Neurological: Alert and oriented x4. Grossly nonfocal. Normal speech Skin: No significant rash Psychological: He has a flat affect. Physical Exam Vital Signs: Temp Pulse Resp BP Pulse Ox 98.0 F 82 14 150/59 H 100 04/15/17 16:01 04/15/17 16:01 04/15/17 16:01 04/15/17 16:01 04/15/17 16:01 Intake & Output 04/14/17 04/15/17 04/16/17 06:59 06:59 06:59 Intake Total 444 240 Output Total 800 Balance -356 240 Results Laboratory Results: 04/15/17 07:02 04/15/17 07:02 04/15/17 04/15/17 07:02 07:02 WBC 2.4 L RBC 3.00 L Hgb 9.2 L Hct 26.5 L MCV 88 MCH 30.5 MCHC 34.6 RDW 14.3 H Plt Count 72 L Seg Neutrophils % 61.1 Lymphocytes % 16.9 Monocytes % 18.1 H Eosinophils % 2.7 Basophils % 1.2 Absolute Neutrophils 1.5 L Absolute Lymphocytes 0.4 L Absolute Monocytes 0.4 Absolute Eosinophils 0.1 Absolute Basophils 0.0 Sodium 141.4 Potassium 4.5 Chloride 109 H Carbon Dioxide 26 Anion Gap 6 BUN 43 H Creatinine 2.06 H Est GFR ( Amer) 39 L Est GFR (Non-Af Amer) 32 L Glucose 111 H Calcium 9.0 Impressions: Abdomen/Pelvis CT 04/14/17 08:40 IMPRESSION: LARGE VOLUME ASCITES IN A PATIENT WITH KNOWN CIRRHOSIS AND PORTAL VENOUS HYPERTENSION LIMITS EVALUATION FOR IDENTIFYING ACUTE INFLAMMATORY PROCESS ESPECIALLY ON THE NONCONTRAST CT. NO URINARY TRACT CALCULI OR HYDRONEPHROSIS. ADDITIONAL CHRONIC CHANGES ABOVE. Abdomen Ultrasound 04/14/17 10:18 IMPRESSION: LARGE VOLUME ASCITES. NO SIGNIFICANT CHANGE FROM CT. Assessment & Plan - Diagnosis (1) Ascites due to alcoholic cirrhosis Is this a current diagnosis for this admission?: Yes Plan: He has had more difficulty controlling his ascites over the last month. This may just be from more decompensation of his liver but he may also be drinking again and not watching his diet. His CAT scan did not show any new hepatic lesions and his AFP was normal in December of last year. He has required 3 paracenteses in the last month though the last one was only for 4 L. I will perform another large-volume paracentesis on him tomorrow prior to being discharged. He was taking Lasix 20 mg daily on admission and I will increase this to 40 mg daily with close monitoring of his renal function. I am holding off on spironolactone as his potassium is on the high side of normal (2) Advanced cirrhosis of liver Is this a current diagnosis for this admission?: Yes (3) Hepatic encephalopathy Is this a current diagnosis for this admission?: Yes Plan: He is on lactulose and rifaximin (4) Kidney disease Is this a current diagnosis for this admission?: Yes
[2017-04-15] MEDS: ESCITALOPRAM OXALATE 10 MG TABLET PO SCH (22:04)
[2017-04-15] MEDS: INSULIN DETEMIR 100 UNIT/ML 3 ML PEN SUBCUT SCH (22:14)
[2017-04-16 05:37] LABS: ABSOLUTE EOSINOPHILS # (AUTO) 0.1 10^3/uL (0.0-0.6); ABSOLUTE LYMPHOCYTES (AUTO) 0.5 10^3/uL (0.5-4.7); ABSOLUTE MONOCYTES (AUTO) 0.5 10^3/uL (0.1-1.4); ABSOLUTE NEUT (AUTO) 1.6 10^3/uL (1.7-8.2); BASOPHILS % (AUTO) 1.2 % (0-2); EOSINOPHILS % (AUTO) 2.8 % (0-6); HEMATOCRIT 25.3 % (37.9-51.0); HEMOGLOBIN 8.9 g/dL (13.5-17.0); LYMPHOCYTES % (AUTO) 17.1 % (13-45); MEAN CORPUSCULAR HEMOGLOBIN 30.8 pg (27.0-33.4); MEAN CORPUSCULAR HGB CONC 35.1 g/dL (32.0-36.0); MEAN CORPUSCULAR VOLUME 88 fl (80-97); MONOCYTES % (AUTO) 18.9 % (3-13); RED BLOOD COUNT 2.88 10^6/uL (4.35-5.55); RED CELL DISTRIBUTION WIDTH 14.3 % (11.5-14.0); TOTAL CELLS COUNTED % (AUTO) 100 %; WHITE BLOOD COUNT 2.6 10^3/uL (4.0-10.5)
[2017-04-16 05:44] LABS: ANION GAP 10 (5-19); BLOOD UREA NITROGEN 41 mg/dL (7-20); CALCIUM 8.5 mg/dL (8.4-10.2); CARBON DIOXIDE 21 mmol/L (22-30); CHLORIDE 109 mmol/L (98-107); GLUCOSE 140 mg/dL (75-110); POTASSIUM 4.2 mmol/L (3.6-5.0); SODIUM 139.5 mmol/L (137-145)
[2017-04-16 06:14] LABS: PLATELET COUNT 65 10^3/uL (150-450)
[2017-04-16] MEDS: LACTULOSE SYRUP 20 GM/30 ML UDCUP PO SCH ×3 (06:38→21:49)
[2017-04-16] MEDS: HYDRALAZINE HCL 25 MG TABLET PO SCH ×3 (06:38→21:49)
[2017-04-16] MEDS: FERROUS SULFATE 325 MG TABLET PO SCH ×2 (10:08→18:10)
[2017-04-16] MEDS: OMEGA-3 ACID ETHYL ESTERS 1 GM CAPSULE PO SCH (10:08)
[2017-04-16] MEDS: NADOLOL 40 MG TABLET PO SCH (10:08)
[2017-04-16] MEDS: RIFAXIMIN 550 MG TABLET PO SCH ×2 (10:08→21:49)
[2017-04-16] MEDS: THIAMINE HCL 100 MG TABLET PO SCH (10:09)
[2017-04-16] MEDS: MAGNESIUM OXIDE 400 MG TABLET PO SCH (10:09)
[2017-04-16] MEDS: FUROSEMIDE 20 MG TABLET PO SCH (10:09)
[2017-04-16] MEDS: EZETIMIBE 10 MG TABLET PO SCH (10:09)
[2017-04-16] MEDS: CEFTRIAXONE 2 GM/D5W RTU 2 GM/50 ML RTUPB IV SCH (10:10)
[2017-04-16 12:43] LABS: TOTAL PROTEIN BODY FLUID 1.6 g/dL (.)
--- NOTE | 2017-04-16 12:50 | PDOC PROGRESS REPORT ---
Subjective Progress Note for:: 04/16/17 Subjective:: Patient is currently doing fair patient's fluid culture is so far so negative Patient's denied any abdominal pain Patient seen by GI and scheduled for paracentesis today Reason For Visit: BACTERIAL PERITENITIS Physical Exam Vital Signs: Temp Pulse Resp BP Pulse Ox 97.6 F 65 18 128/42 H 100 04/16/17 11:27 04/16/17 11:27 04/16/17 11:27 04/16/17 11:59 04/16/17 11:27 Intake & Output 04/15/17 04/16/17 04/17/17 06:59 06:59 06:59 Intake Total 444 1365 Output Total 800 Balance -356 1365 Weight 106.7 kg General appearance: PRESENT: no acute distress, well-developed, well-nourished Head exam: PRESENT: atraumatic, normocephalic Eye exam: PRESENT: conjunctiva pink, EOMI, PERRLA. ABSENT: scleral icterus Ear exam: PRESENT: normal external ear exam Mouth exam: PRESENT: moist, tongue midline Neck exam: PRESENT: full ROM. ABSENT: carotid bruit, JVD, lymphadenopathy, thyromegaly Respiratory exam: PRESENT: clear to auscultation magda Cardiovascular exam: PRESENT: RRR. ABSENT: diastolic murmur, rubs, systolic murmur Pulses: PRESENT: normal dorsalis pedis pul, +2 pedal pulses bilateral Vascular exam: PRESENT: normal capillary refill GI/Abdominal exam: PRESENT: ascites, distended, normal bowel sounds, soft. ABSENT: guarding, mass, organolmegaly, rebound, tenderness Rectal exam: PRESENT: deferred Musculoskeletal exam: PRESENT: ambulatory Neurological exam: PRESENT: alert, awake, oriented to person, oriented to place , oriented to time, oriented to situation, CN II-XII grossly intact. ABSENT: motor sensory deficit Psychiatric exam: PRESENT: appropriate affect, normal mood. ABSENT: homicidal ideation, suicidal ideation Skin exam: PRESENT: dry, intact, warm. ABSENT: cyanosis, rash Results Laboratory Results: 04/16/17 04:37 04/16/17 04:37 04/16/17 04/16/17 04:37 04:37 WBC 2.6 L RBC 2.88 L Hgb 8.9 L Hct 25.3 L MCV 88 MCH 30.8 MCHC 35.1 RDW 14.3 H Plt Count 65 L Seg Neutrophils % 60.0 Lymphocytes % 17.1 Monocytes % 18.9 H Eosinophils % 2.8 Basophils % 1.2 Absolute Neutrophils 1.6 L Absolute Lymphocytes 0.5 Absolute Monocytes 0.5 Absolute Eosinophils 0.1 Absolute Basophils 0.0 Sodium 139.5 Potassium 4.2 Chloride 109 H Carbon Dioxide 21 L Anion Gap 10 BUN 41 H Creatinine 2.06 H Est GFR ( Amer) 39 L Est GFR (Non-Af Amer) 32 L Glucose 140 H Calcium 8.5 04/14/17 20:20 Clean Catch Midstream Urine Culture - Final NO GROWTH 2 DAYS Impressions: Abdomen/Pelvis CT 04/14/17 08:40 IMPRESSION: LARGE VOLUME ASCITES IN A PATIENT WITH KNOWN CIRRHOSIS AND PORTAL VENOUS HYPERTENSION LIMITS EVALUATION FOR IDENTIFYING ACUTE INFLAMMATORY PROCESS ESPECIALLY ON THE NONCONTRAST CT. NO URINARY TRACT CALCULI OR HYDRONEPHROSIS. ADDITIONAL CHRONIC CHANGES ABOVE. Abdomen Ultrasound 04/14/17 10:18 IMPRESSION: LARGE VOLUME ASCITES. NO SIGNIFICANT CHANGE FROM CT. Assessment & Plan - Diagnosis (1) SBP (spontaneous bacterial peritonitis) Is this a current diagnosis for this admission?: Yes Plan: So far all cultures negatives and patient does not have any pain DC the IV Rocephin (2) Ascites due to alcoholic cirrhosis Is this a current diagnosis for this admission?: Yes Plan: Scheduled for the paracentesis today (3) Hepatic encephalopathy Is this a current diagnosis for this admission?: Yes Plan: Continues to lactulose (4) Type 2 diabetes mellitus Qualifiers: Diabetes mellitus complication status: with unspecified complications Is this a current diagnosis for this admission?: Yes Plan: Continues to current medications (5) Kidney disease Is this a current diagnosis for this admission?: Yes Plan: Chronic kidney disease stage III currently stable (6) Hypertension Qualifiers: Hypertension type: essential hypertension Qualified Code(s): I10 - Essential (primary) hypertension Is this a current diagnosis for this admission?: Yes Plan: Continues to current medications (7) Advanced cirrhosis of liver Is this a current diagnosis for this admission?: Yes Plan: Follow with the Dr. 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
[2017-04-16] MEDS ORDERED: LIDOCAINE 1% INJ-PF (10 MG/ML) 30 ML SDV ONE (15:07)
--- NOTE | 2017-04-16 18:03 | RADIOLOGY REPORT (SQ) ---
EXAM DESCRIPTION: U/S ABD PARACENTESIS COMPLETED DATE/TIME: 04/16/2017 5:42 pm REASON FOR STUDY: ascites, remove 5L of fluid COMPARISON 04/14/2017, 04/09/2017 LIMITATIONS: None. PROCEDURE: After obtaining informed consent, the patient was brought to the ultrasound suite. The p rocedure was performed with the patient on a gurney. Ultrasound was used to identify a prominent poc ket of ascites left lower quadrant. An appropriate access site was selected. The patient was preppe d and draped in usual sterile fashion. The access site was anesthetized with 8 mL 1% lidocaine. A [id number] needle was advanced into the fluid. After aspiration of fluid the needle, the cathet er was advanced off the needle into the fluid. A total of 5,000 mL of cloudy yellow fluid was remove d. The patient tolerated the procedure well left the department in satisfactory condition. No testing on the fluid was performed. IMPRESSION: Successful ultrasound-guided therapeutic paracentesis COMMENT: Patient medication list reviewed: Yes- Quality ID# [id number]:Eligible professional attests to doc umenting in the medical record they obtained, updated, or reviewed the patient's current medications. Quality ID #[id number]: The patient was prepped and draped using maximum sterile barrier technique including cap, mask, sterile gown, sterile gloves, a large sterile sheet, hand hygiene, and 2% Chlorhexidine fo r cutaneous antisepsis. When ultrasound is used, sterile ultrasound techniques are followed requiring sterile gel and sterile probes. Quality ID #[id number]: Final reports for procedures using fluoroscopy that document radiation exposure dianelys dylan, or exposure time and number of fluorographic images (if radiation exposure indices are not avail able) TECHNICAL DOCUMENTATION: JOB ID: [id number] [employer]- All Rights Reserved
[2017-04-16] MEDS: INSULIN LISPRO 100 UNIT/ML 3 ML VIAL SUBCUT PRN (18:10)
[2017-04-16] MEDS: INSULIN DETEMIR 100 UNIT/ML 3 ML PEN SUBCUT SCH (21:49)
[2017-04-16] MEDS: ESCITALOPRAM OXALATE 10 MG TABLET PO SCH (21:49)
[2017-04-17 05:14] LABS: ANION GAP 7 (5-19); BLOOD UREA NITROGEN 43 mg/dL (7-20); CALCIUM 8.6 mg/dL (8.4-10.2); CARBON DIOXIDE 23 mmol/L (22-30); CHLORIDE 110 mmol/L (98-107); GLUCOSE 120 mg/dL (75-110); SODIUM 139.6 mmol/L (137-145)
[2017-04-17 05:25] LABS: POTASSIUM 4.3 mmol/L (3.6-5.0)
[2017-04-17] MEDS: LACTULOSE SYRUP 20 GM/30 ML UDCUP PO SCH (05:38)
[2017-04-17] MEDS: HYDRALAZINE HCL 25 MG TABLET PO SCH (05:39)
[2017-04-17] MEDS: EZETIMIBE 10 MG TABLET PO SCH (08:57)
[2017-04-17] MEDS: OMEGA-3 ACID ETHYL ESTERS 1 GM CAPSULE PO SCH (08:57)
[2017-04-17] MEDS: FERROUS SULFATE 325 MG TABLET PO SCH (08:58)
[2017-04-17] MEDS: MAGNESIUM OXIDE 400 MG TABLET PO SCH (08:58)
[2017-04-17] MEDS: LANSOPRAZOLE 30 MG TAB.RAP.DR PO SCH (08:58)
[2017-04-17] MEDS: NADOLOL 40 MG TABLET PO SCH (08:58)
[2017-04-17] MEDS: FUROSEMIDE 20 MG TABLET PO SCH (09:00)
[2017-04-17] MEDS: THIAMINE HCL 100 MG TABLET PO SCH (09:01)
[2017-04-17] MEDS: CEFTRIAXONE 2 GM/D5W RTU 2 GM/50 ML RTUPB IV SCH (09:01)
[2017-04-17] MEDS: RIFAXIMIN 550 MG TABLET PO SCH (09:01)
--- NOTE | 2017-04-17 09:25 | PDOC DISCHARGE SUMMARY ---
General - Admit/Disc Date/PCP Admission Date/Primary Care Provider: 04/14/17 15:45 YOLI PAYAN MD Discharge Date: 04/17/17 - Discharge Diagnosis (1) SBP (spontaneous bacterial peritonitis) Is this a current diagnosis for this admission?: Yes Summary: As per discussed with Dr. Ernst continues to Cipro for 10 days patient's currently denied any symptoms and remain afebrile and white count is normal (2) Ascites due to alcoholic cirrhosis Is this a current diagnosis for this admission?: Yes Summary: Patients have a remove the another 8 L of the fluid total in this admissions (3) Hepatic encephalopathy Is this a current diagnosis for this admission?: Yes Summary: Continues on lactulose (4) Type 2 diabetes mellitus Is this a current diagnosis for this admission?: Yes Summary: Continues to current medications (5) Kidney disease Is this a current diagnosis for this admission?: Yes Summary: Since follow-up outpatients Dr. Robertson (6) Hypertension Is this a current diagnosis for this admission?: Yes Summary: Currently all stable (7) Advanced cirrhosis of liver Is this a current diagnosis for this admission?: Yes Summary: Continues to current medications - Additional Information Discharge Diet: Diabetic Discharge Activity: Activity As Tolerated Prescriptions: Ciprofloxacin HCl [Cipro 250 mg Tablet] 1 tab PO BID #14 tab Home Medications: Insulin Lispro [Humalog Insulin (Lispro) 100 unit/mL] 0 units SUBCUT MEALS PRN 05/22/12 Lactulose [Cephulac Syrup 20 gm/30 ml Udcup] 15 ml PO QID 05/22/12 Lansoprazole 30 mg PO DAILY 05/22/12 Nadolol [Corgard 40 mg Tablet] 20 mg PO DAILY 05/22/12 Ergocalciferol (Vitamin D2) [Vitamin D2] 50,000 unit PO TH@1000 PRN 03/21/17 Escitalopram Oxalate [Lexapro] 20 mg PO QHS 03/21/17 Fish Oil/Dha/Epa [Fish Oil 1,200 mg Fish Oil] 1 tab PO DAILY 03/21/17 Insulin Detemir [Levemir] 25 unit SQ QHS 03/21/17 Iron 325 mg PO BID 03/21/17 Magnesium Oxide [Magnesium] 400 mg PO DAILY 03/21/17 Rifaximin [Xifaxan] 550 mg PO BID 03/21/17 Hydralazine HCl 25 mg PO Q8 04/09/17 Ciprofloxacin HCl [Cipro 250 mg Tablet] 1 tab PO BID #14 tab 04/16/17 Furosemide [Lasix 40 mg Tablet] 40 mg PO QAM #30 04/16/17 History of Present Illness History of Present Illness: DAVID SO is a 71 year old male This is a 71-year-old male with history of the alcoholic cirrhosis of the liver with the recurrent ascitesHave a paracentesis done twice in the last couple of weeks and remove the more than 60 L of the fluid came to the emergency department with a questionable SBP and abdominal pain and patients underwent for the paracentesis by surgeryGive her 2 g Rocephin fluid and also start on IV Rocephin Patient seen by Dr. Ernst and even the all cultures negative suggest to continue the Cipro and remove the morphology of the fluid and increased the Lasix Patient's otherwise remained stable discussed with the Dr. Ernst and suggest a follow outpatient Discussed with the regarding the patient's current conditions and patient' s discharge home with the stable conditions of the home health and physical therapy Recheck the Chem-7 in 1 week and if is getting worse follow with the Dr. Robertson and reduce the Lasix Physical Exam Vital Signs: Temp Pulse Resp BP Pulse Ox 97.6 F 85 16 140/51 H 100 04/17/17 07:50 04/17/17 07:50 04/17/17 07:50 04/17/17 07:50 04/17/17 07:50 Intake & Output 04/16/17 04/17/17 04/18/17 06:59 06:59 06:59 Intake Total 1365 1120 Output Total 2 Balance 1365 1118 Weight 106.7 kg 101.6 kg General appearance: PRESENT: no acute distress, well-developed, well-nourished Head exam: PRESENT: atraumatic, normocephalic Eye exam: PRESENT: conjunctiva pink, EOMI, PERRLA. ABSENT: scleral icterus Ear exam: PRESENT: normal external ear exam Mouth exam: PRESENT: moist, tongue midline Neck exam: PRESENT: full ROM. ABSENT: carotid bruit, JVD, lymphadenopathy, thyromegaly Respiratory exam: PRESENT: clear to auscultation magda Cardiovascular exam: PRESENT: RRR. ABSENT: diastolic murmur, rubs, systolic murmur Pulses: PRESENT: normal dorsalis pedis pul, +2 pedal pulses bilateral Vascular exam: PRESENT: normal capillary refill GI/Abdominal exam: PRESENT: ascites, distended, normal bowel sounds, soft. ABSENT: guarding, mass, organolmegaly, rebound, tenderness Rectal exam: PRESENT: deferred Extremities exam: ABSENT: pedal edema Neurological exam: PRESENT: alert, awake, oriented to person, oriented to place , oriented to time, oriented to situation, CN II-XII grossly intact. ABSENT: motor sensory deficit Psychiatric exam: PRESENT: appropriate affect, normal mood. ABSENT: homicidal ideation, suicidal ideation Skin exam: PRESENT: dry, intact, warm. ABSENT: cyanosis, rash Results Laboratory Results: 04/16/17 04:37 04/17/17 04:35 04/17/17 04:35 Sodium 139.6 Potassium 4.3 Chloride 110 H Carbon Dioxide 23 Anion Gap 7 BUN 43 H Creatinine 2.21 H Est GFR ( Amer) 36 L Est GFR (Non-Af Amer) 29 L Glucose 120 H Calcium 8.6 04/14/17 20:20 Clean Catch Midstream Urine Culture - Final NO GROWTH 2 DAYS Impressions: Abdomen/Pelvis CT 04/14/17 08:40 IMPRESSION: LARGE VOLUME ASCITES IN A PATIENT WITH KNOWN CIRRHOSIS AND PORTAL VENOUS HYPERTENSION LIMITS EVALUATION FOR IDENTIFYING ACUTE INFLAMMATORY PROCESS ESPECIALLY ON THE NONCONTRAST CT. NO URINARY TRACT CALCULI OR HYDRONEPHROSIS. ADDITIONAL CHRONIC CHANGES ABOVE. Abdomen Ultrasound 04/14/17 10:18 IMPRESSION: LARGE VOLUME ASCITES. NO SIGNIFICANT CHANGE FROM CT. Paracentesis Ultrasound 04/16/17 08:03 IMPRESSION: Successful ultrasound-guided therapeutic paracentesis Plan Time Spent: Greater than 30 Minutes - Following office in 1 week recheck the Chem-[address] Ernst and follow with Dr. Robertson
[2017-04-17 14:47] VITALS: BP 148/54
[2017-04-18] MEDS ORDERED: ERGOCALCIFEROL (VITAMIN D2) 50000 UNIT (1.25 MG) CAPSULE PO SCH (10:00)
== END 2017-04-17 12:30 | disposition home health service (06) | DRG 432 ==
LOC: ER 07:47 → EH 15:45 → 4W 21:30
PROVIDERS: ADMIT Family Medicine; ATTEND Family Medicine
PROC: 0W9G3ZZ Drainage of Peritoneal Cavity, Percutaneous Approach (ICD-10-PCS; 2017-04-14)
PROC: 0W9G3ZZ Drainage of Peritoneal Cavity, Percutaneous Approach (ICD-10-PCS; principal; 2017-04-16)
DX: K70.31 Alcoholic cirrhosis of liver with ascites (principal); K65.2 Spontaneous bacterial peritonitis; K70.40 Alcoholic hepatic failure without coma; I12.9 Hypertensive chronic kidney disease with stage 1 through stage 4 chronic kidney disease, or unspecified chronic kidney disease; E11.22 Type 2 diabetes mellitus with diabetic chronic kidney disease; N18.3 Chronic kidney disease, stage 3 (moderate); N18.9 Chronic kidney disease, unspecified; Z79.84 Long term (current) use of oral hypoglycemic drugs; I25.10 Atherosclerotic heart disease of native coronary artery without angina pectoris; I25.2 Old myocardial infarction; I10 Essential (primary) hypertension; F32.9 Major depressive disorder, single episode, unspecified; F10.20 Alcohol dependence, uncomplicated; Z90.49 Acquired absence of other specified parts of digestive tract; Z95.1 Presence of aortocoronary bypass graft; Z79.4 Long term (current) use of insulin; D69.59 Other secondary thrombocytopenia; F41.9 Anxiety disorder, unspecified; G40.909 Epilepsy, unspecified, not intractable, without status epilepticus; Z66 Do not resuscitate
CPT/HCPCS: 36415; 49083; 74176; 76705; 80048; 80053; 81001; 82150; 82945; 82962; 83615; 83690; 84157; 85025; 85610; 87070; 87075; 87086; 87205; 89050; 93005; 93010; 96365; 96366; 99285; A9270-GY; J0696; J1815; J3490; P9047

== ENCOUNTER 2017-04-19 17:13 | Inpatient (IN) | payer MEDICARE, BC ==
[2017-04-19 18:02] LABS: ABSOLUTE BASOPHILS # (AUTO) 0.1 10^3/uL (0.0-0.2); ABSOLUTE EOSINOPHILS # (AUTO) 0.1 10^3/uL (0.0-0.6); ABSOLUTE LYMPHOCYTES (AUTO) 0.5 10^3/uL (0.5-4.7); ABSOLUTE MONOCYTES (AUTO) 0.5 10^3/uL (0.1-1.4); ABSOLUTE NEUT (AUTO) 3.1 10^3/uL (1.7-8.2); BASOPHILS % (AUTO) 1.2 % (0-2); EOSINOPHILS % (AUTO) 2.5 % (0-6); HEMOGLOBIN 10.3 g/dL (13.5-17.0); LYMPHOCYTES % (AUTO) 10.9 % (13-45); MEAN CORPUSCULAR HEMOGLOBIN 30.5 pg (27.0-33.4); MEAN CORPUSCULAR HGB CONC 34.1 g/dL (32.0-36.0); MEAN CORPUSCULAR VOLUME 89 fl (80-97); RED BLOOD COUNT 3.36 10^6/uL (4.35-5.55); RED CELL DISTRIBUTION WIDTH 14.4 % (11.5-14.0); SEGMENTED NEUTROPHILS % (AUTO) 73.4 % (42-78); TOTAL CELLS COUNTED % (AUTO) 100 %; WHITE BLOOD COUNT 4.2 10^3/uL (4.0-10.5)
[2017-04-19 18:03] LABS: PLATELET COUNT 83 10^3/uL (150-450)
--- NOTE | 2017-04-19 18:21 | EKG REPORT ---
SEVERITY:- ABNORMAL ECG - SINUS RHYTHM MULTIPLE ATRIAL PREMATURE COMPLEXES BORDERLINE LEFT AXIS DEVIATION ABNRM R PROG, CONSIDER ASMI OR LEAD PLACEMENT BORDERLINE T ABNORMALITIES, INFERIOR LEADS : Confirmed by: Remington Reynolds MD 19-Apr-2017 18:20:25
[2017-04-19 18:24] LABS: ALANINE AMINOTRANSFERASE 31 U/L (21-72); ALBUMIN 3.1 g/dL (3.5-5.0); ALKALINE PHOSPHATASE 56 U/L (38-126); ANION GAP 11 (5-19); ASPARTATE AMINO TRANSFERASE 50 U/L (17-59); BILIRUBIN,DIRECT 0.3 mg/dL (0.0-0.4); BILIRUBIN,TOTAL 0.8 mg/dL (0.2-1.3); BLOOD UREA NITROGEN 52 mg/dL (7-20); CALCIUM 8.9 mg/dL (8.4-10.2); CARBON DIOXIDE 20 mmol/L (22-30); CHLORIDE 111 mmol/L (98-107); CREATINE KINASE 63 U/L (55-170); GLUCOSE 146 mg/dL (75-110); POTASSIUM 4.6 mmol/L (3.6-5.0); SODIUM 141.7 mmol/L (137-145); TOTAL PROTEIN 6.3 g/dL (6.3-8.2)
[2017-04-19 18:36] LABS: CREATINE KINASE MB 0.78 ng/mL (<4.55)
[2017-04-19 18:37] LABS: TROPONIN I < 0.012 ng/mL
--- NOTE | 2017-04-19 18:44 | ER Document Report ---
ED General - General Chief Complaint: Altered Mental Status Stated Complaint: WEAKNESS Time Seen by Provider: 04/19/17 18:12 Mode of Arrival: Ambulatory Information source: Patient Notes: 71-year-old male history of ascites secondary to alcoholic cirrhosis who was recently admitted for concerns of bacterial peritonitis presents with complaints of confusion. Patient notes he was discharged on Saturday he was doing well on and then today he cannot walk or feed himself Patient is on lactulose 30 mg 3 times a day TRAVEL OUTSIDE OF THE [place] IN LAST 30 DAYS: No - HPI Onset: This morning Onset/Duration: Persistent Quality of pain: No pain Severity: Moderate Pain Level: Denies Associated symptoms: Other - Confusion Exacerbated by: Denies Relieved by: Denies Similar symptoms previously: Yes Recently seen / treated by doctor: Yes - Related Data Allergies/Adverse Reactions: No Known Allergies Allergy (Verified 04/14/17 07:48) Home Medications: Current Home Medications Ferrous Sulfate [Feosol 325 mg Tablet] 325 mg PO BID 04/19/17 [History] Insulin Lispro [Humalog Insulin (Lispro) 100 unit/mL] See Protocol SQ MEALS 03/25 [History] Ondansetron [Zofran Odt 4 mg Tablet] 4 mg SL TIDP PRN 04/19/17 [History] Past Medical History - Social History Smoking Status: Never Smoker Cigarette use (# per day): No Chew tobacco use (# tins/day): No Smoking Education Provided: No Frequency of alcohol use: None Drug Abuse: None Family History: Reviewed & Not Pertinent Patient has suicidal ideation: No Patient has homicidal ideation: No - Past Medical History Cardiac Medical History: Reports: Hx Coronary Artery Disease, Hx Heart Attack, Hx Hypertension Pulmonary Medical History: Denies: Hx Asthma, Hx Bronchitis, Hx COPD, Hx Pneumonia Neurological Medical History: Reports: Hx Seizures - hx of 3 years ago x1. Denies: Hx Cerebrovascular Accident Endocrine Medical History: Reports: Hx Diabetes Mellitus Type 2 Renal/ Medical History: Denies: Hx Peritoneal Dialysis GI Medical History: Reports: Hx Gastroesophageal Reflux Disease Musculoskeltal Medical History: Denies Hx Arthritis Psychiatric Medical History: Reports: Hx Anxiety, Hx Depression Past Surgical History: Reports: Hx Cardiac Catheterization - Bypassx4, Hx Cholecystectomy, Hx Coronary Artery Bypass Graft - Immunizations Immunizations up to date: Yes Hx Diphtheria, Pertussis, Tetanus Vaccination: Yes Hx Pneumococcal Vaccination: 04/08/08 Review of Systems - Review of Systems Notes: REVIEW OF SYSTEMS: CONSTITUTIONAL : Denies fever, chills, or sweats. Denies recent illness. EENT: Denies eye, ear, throat, or mouth pain or symptoms. Denies nasal or sinus congestion or discharge. Denies throat, tongue, or mouth swelling or difficulty swallowing. CARDIOVASCULAR: Denies chest pain. Denies palpitations or racing or irregular heart beat. Denies ankle edema. RESPIRATORY: Denies cough, cold, or chest congestion. Denies shortness of breath, difficulty breathing, or wheezing. GASTROINTESTINAL: Denies abdominal pain or distention. Denies nausea, vomiting , or diarrhea. Denies blood in vomitus, stools, or per rectum. Denies black, tarry stools. Denies constipation. GENITOURINARY: Denies difficulty urinating, painful urination, burning, frequency, blood in urine, or discharge. MUSCULOSKELETAL: Denies back or neck pain or stiffness. Denies joint pain or swelling. SKIN: Denies rash, lesions or sores. HEMATOLOGIC : Denies easy bruising or bleeding. LYMPHATIC: Denies swollen, enlarged glands. NEUROLOGICAL: Confusion PSYCHIATRIC: Denies anxiety or stress. Denies depression, suicidal ideation, or homicidal ideation. ALL OTHER SYSTEMS REVIEWED AND NEGATIVE. Dictation was performed using [employer] voice recognition software PHYSICAL EXAMINATION: GENERAL: Well-appearing, well-nourished and in no acute distress. HEAD: Atraumatic, normocephalic. EYES: Pupils equal round and reactive to light, extraocular movements intact, sclera anicteric, conjunctiva are normal. ENT: Nares patent, oropharynx clear without exudates. Moist mucous membranes. NECK: Normal range of motion, supple without lymphadenopathy LUNGS: Breath sounds clear to auscultation bilaterally and equal. No wheezes rales or rhonchi. HEART: Regular rate and rhythm without murmurs ABDOMEN: Soft, nontender, nondistended abdomen. No guarding, no rebound. No masses appreciated. Musculoskeletal: Normal range of motion, no pitting or edema. No cyanosis. NEUROLOGICAL: Cranial nerves grossly intact. Normal speech, normal gait. Normal sensory, motor exams patient is quite confused does not remember talking to me a few days prior does not know where he is PSYCH: Normal mood, normal affect. SKIN: Warm, Dry, normal turgor, no rashes or lesions noted. Physical Exam - Vital signs Vitals: Resp 17 04/19/17 17:21 Course - Re-evaluation Re-evalutation: 04/19/17 18:44 My concern is for an infectious process versus hyperammonemia 04/19/17 19:18 Patient's ammonia levels noted to be 101, this would be consistent with his presentation I will admit to his primary care physician 04/19/17 20:[address] Power and will admit the patient to Dr. Payan service - Vital Signs Vital signs: Temp Pulse Resp BP Pulse Ox 51 L 15 195/60 H 100 04/19/17 17:59 04/19/17 19:02 04/19/17 19:02 04/19/17 19:02 - Laboratory Result Diagrams: 04/19/17 17:24 04/19/17 17:24 Laboratory results interpreted by me: 04/19/17 04/19/17 04/19/17 17:24 17:24 18:38 RBC 3.36 L Hgb 10.3 L Hct 30.0 L RDW 14.4 H Plt Count 83 L Lymphocytes % 10.9 L PT 15.9 H APTT 22.4 L Chloride 111 H Carbon Dioxide 20 L BUN 52 H Creatinine 2.57 H Est GFR ( Amer) 30 L Est GFR (Non-Af Amer) 25 L Glucose 146 H Ammonia Albumin 3.1 L 04/19/17 18:38 RBC Hgb Hct RDW Plt Count Lymphocytes % PT APTT Chloride Carbon Dioxide BUN Creatinine Est GFR ( Amer) Est GFR (Non-Af Amer) Glucose Ammonia 101.3 H Albumin Discharge - Discharge Clinical Impression: Advanced cirrhosis of liver, Hepatic encephalopathy, Hyperammonemia Condition: Stable Disposition: ADMITTED INPATIENT Admitting Provider: [facility] Unit Admitted: Medical Floor Referrals: YOLI PAYAN MD [Primary Care Provider] - Follow up as needed
[2017-04-19 19:01] LABS: INTERNATIONAL RATION (INR) 1.19; PARTIAL THROMBOPLASTIN TIME 22.4 SEC (23.5-35.8); PROTHROMBIN TIME 15.9 SEC (11.4-15.4)
[2017-04-19] MEDS ORDERED: LACTULOSE SYRUP 20 GM/30 ML UDCUP PO ONE (19:18)
[2017-04-19 22:03] LABS: APPEARANCE,URINE CLEAR; BILIRUBIN,URINE NEGATIVE (NEGATIVE); COLOR,URINE YELLOW; GLUCOSE, URINE NEGATIVE (NEGATIVE); KETONES,URINE NEGATIVE (NEGATIVE); LEUKOCYTE ESTERASE,URINE NEGATIVE (NEGATIVE); NITRITE,URINE NEGATIVE (NEGATIVE); PROTEIN,URINE NEGATIVE (NEGATIVE); URINE SPECIFIC GRAVITY 1.011; UROBILINOGEN,URINE NEGATIVE mg/dL (<2.0)
[2017-04-20] MEDS ORDERED: ONDANSETRON 4 MG TAB.RAPDIS PO PRN (00:42)
[2017-04-20] MEDS ORDERED: ONDANSETRON 4 MG TAB.RAPDIS SL PRN ×2 (01:00→10:50)
[2017-04-20] MEDS: HYDRALAZINE HCL 25 MG TABLET PO SCH ×3 (06:03→22:31)
[2017-04-20] MEDS ORDERED: LANSOPRAZOLE 30 MG TAB.RAP.DR PO SCH (10:00)
[2017-04-20] MEDS ORDERED: LACTULOSE SYRUP 20 GM/30 ML UDCUP PO SCH ×2 (10:00→14:00)
[2017-04-20] MEDS ORDERED: EPA PO SCH (11:00)
[2017-04-20] MEDS ORDERED: FERROUS SULFATE 325 MG TABLET PO SCH (11:00)
[2017-04-20] MEDS ORDERED: FUROSEMIDE 40 MG TABLET PO SCH (11:00)
[2017-04-20] MEDS ORDERED: FISH OIL PO SCH (11:00)
[2017-04-20] MEDS ORDERED: HYDRALAZINE HCL 25 MG TABLET PO SCH (11:00)
[2017-04-20] MEDS ORDERED: NADOLOL 40 MG TABLET PO SCH (11:00)
[2017-04-20] MEDS ORDERED: RIFAXIMIN 200 MG TABLET PO SCH (11:00)
[2017-04-20] MEDS ORDERED: MAGNESIUM OXIDE 400 MG TABLET PO SCH (11:00)
[2017-04-20] MEDS ORDERED: (PENDING PHARMACY ID) (Lansoprazole [Lansoprazole] 30 MG) PO SCH (11:00)
[2017-04-20] MEDS ORDERED: DHA PO SCH (11:00)
[2017-04-20] MEDS: NADOLOL 40 MG TABLET PO SCH (11:48)
[2017-04-20] MEDS: FERROUS SULFATE 325 MG TABLET PO SCH ×2 (11:49→17:14)
[2017-04-20] MEDS: FUROSEMIDE 40 MG TABLET PO SCH (11:49)
[2017-04-20] MEDS: MAGNESIUM OXIDE 400 MG TABLET PO SCH (11:49)
[2017-04-20] MEDS: RIFAXIMIN 550 MG TABLET PO SCH ×2 (11:50→17:15)
[2017-04-20] MEDS: CIPROFLOXACIN HCL 500 MG TABLET PO SCH ×2 (11:50→17:16)
[2017-04-20] MEDS: OMEGA-3 ACID ETHYL ESTERS 1 GM CAPSULE PO SCH (11:52)
[2017-04-20] MEDS ORDERED: GLUCAGON,HUMAN RECOMB 1 MG INJ IM PRN (15:46)
[2017-04-20] MEDS ORDERED: DEXTROSE 50%-WATER SYRINGE 12.5 GM/25 ML DOSE IV PRN (15:46)
[2017-04-20] MEDS ORDERED: DEXTROSE 40% GEL 15 GM TUBE X 2 PO PRN (15:46)
[2017-04-20] MEDS ORDERED: DEXTROSE 50%-WATER SYRINGE 25 GM/50 ML DOSE IV PRN (15:46)
[2017-04-20] MEDS ORDERED: DEXTROSE 40% GEL 15 GM TUBE PO PRN (15:46)
--- NOTE | 2017-04-20 16:21 | PDOC H&P ---
History of Present Illness Admission Date/PCP: 04/19/17 21:06 YOLI PAYAN MD History of Present Illness: DAVID SO is a 71 year old male, he has a history of alcohol liver cirrhosis, decompensated, complicated with hepatic encephalopathy, portal hypertension with ascites, esophageal varices, history of multiple admission for decompensated liver cirrhosis requiring abdominal paracentesis, recently admitted and discharged couple of days ago when he had abdominal paracentesis with 5 liters of ascites fluid removed ,. The emergency room he was evaluated he was found to have he was brought to the emergency room by family because of confusion, altered mental status, not able to feed self. In the emergency room was evaluated, was found to have elevated serum ammonia level. I could not obtain any history from this patient because is very lethargic and confused the patient spouse gave most of the history she told me that patient has not had a bowel movement on present dose of lactulose, the recommended dose of lactulose is to achieve at least 3 bowel movements, he is presently on lactulose 20 g 3 times a day we have to adjust the dose to achieve bowel movement of 3 a day Past Medical History Cardiac Medical History: Reports: Coronary Artery Disease, Myocardial Infarction , Hypertension Neurological Medical History: Reports: Seizures - hx of 3 years ago x1 Endocrine Medical History: Reports: Diabetes Mellitus Type 2 GI Medical History: Reports: Gastroesophageal Reflux Disease Psychiatric Medical History: Reports: Depression Hematology: Reports: Anemia Past Surgical History Past Surgical History: Reports: Cardiac Catheterization - Bypassx4, Cholecystectomy, Coronary Artery Bypass Graft Social History Smoking Status: Never Smoker Frequency of Alcohol Use: Heavy Hx Recreational Drug Use: No Hx Prescription Drug Abuse: No Family History Family History: Reviewed & Not Pertinent Parental Family History Reviewed: Yes Children Family History Reviewed: Yes Sibling(s) Family History Reviewed.: Yes Medication/Allergy Home Medications: RX: Lactulose [Cephulac Syrup 20 gm/30 ml Udcup] 15 ml PO QID 05/22/12 RX: Lansoprazole 30 mg PO DAILY 05/22/12 RX: Nadolol [Corgard 40 mg Tablet] 20 mg PO DAILY 05/22/12 RX: Ergocalciferol (Vitamin D2) [Vitamin D2] 50,000 unit PO TH@1000 PRN RX: Escitalopram Oxalate [Lexapro] 20 mg PO QHS 03/21/17 RX: Fish Oil/Dha/Epa [Fish Oil 1,200 mg Fish Oil] 1 tab PO DAILY 03/21/17 RX: Insulin Detemir [Levemir] 25 unit SQ QHS 03/21/17 RX: Magnesium Oxide [Magnesium] 400 mg PO DAILY 03/21/17 RX: Rifaximin [Xifaxan] 550 mg PO BID 03/21/17 RX: Hydralazine HCl 25 mg PO Q8 04/09/17 Ciprofloxacin HCl [Cipro 250 mg Tablet] 1 tab PO BID #14 tab 04/16/17 RX: Furosemide [Lasix 40 mg Tablet] 40 mg PO QAM #30 04/16/17 Insulin Lispro [Humalog Insulin (Lispro) 100 unit/mL] See Protocol SQ MEALS 03/25 Ondansetron [Zofran Odt 4 mg Tablet] 4 mg SL TIDP PRN 04/19/17 RX: Ferrous Sulfate [Feosol 325 mg Tablet] 325 mg PO BID 04/19/17 Allergies/Adverse Reactions: No Known Allergies Allergy (Verified 04/14/17 07:48) Review of Systems ROS unobtainable: Due to mental status Physical Exam Vital Signs: Temp Pulse Resp BP Pulse Ox 98.4 F 55 L 16 159/51 H 100 04/20/17 12:34 04/20/17 14:00 04/20/17 12:34 04/20/17 12:34 04/20/17 12:34 Intake & Output 04/19/17 04/20/17 04/21/17 06:59 06:59 06:59 Intake Total 250 Balance 250 Weight 95.5 kg General appearance: PRESENT: other - Stuporous Eye exam: PRESENT: scleral icterus Respiratory exam: PRESENT: clear to auscultation magda Cardiovascular exam: PRESENT: +S1, +S2 GI/Abdominal exam: PRESENT: distended, soft Neurological exam: PRESENT: altered Results Laboratory Results: 04/19/17 21:34 Urine Color YELLOW Urine Appearance CLEAR Urine pH 5.0 Ur Specific Sharples 1.011 Urine Protein NEGATIVE Urine Glucose (UA) NEGATIVE Urine Ketones NEGATIVE Urine Blood NEGATIVE Urine Nitrite NEGATIVE Ur Leukocyte Esterase NEGATIVE Urine RBC (Auto) 1 Assessment & Plan - Diagnosis (1) Hepatic encephalopathy Is this a current diagnosis for this admission?: Yes Plan: Patient is admitted to the hospital, the dose of lactulose to be adjusted to achieve a bowels movement of 3 stools per day. Continue other medications (2) Alcoholic cirrhosis of liver with ascites Is this a current diagnosis for this admission?: Yes
[2017-04-20] MEDS: INSULIN LISPRO 100 UNIT/ML 3 ML VIAL SUBCUT PRN (17:15)
[2017-04-20] MEDS: LACTULOSE SYRUP 20 GM/30 ML UDCUP PO SCH ×2 (17:17→22:31)
[2017-04-20] MEDS ORDERED: INSULIN DETEMIR 25 UNIT SQ SCH (22:00)
[2017-04-20] MEDS: INSULIN DETEMIR 100 UNIT/ML 3 ML PEN SUBCUT SCH (22:31)
[2017-04-20] MEDS: ESCITALOPRAM OXALATE 10 MG TABLET PO SCH (22:31)
[2017-04-21] MEDS: LANSOPRAZOLE 30 MG TAB.RAP.DR PO SCH (06:32)
[2017-04-21] MEDS: HYDRALAZINE HCL 25 MG TABLET PO SCH ×3 (06:32→22:57)
[2017-04-21] MEDS: MAGNESIUM OXIDE 400 MG TABLET PO SCH (10:01)
[2017-04-21] MEDS: RIFAXIMIN 550 MG TABLET PO SCH ×2 (10:01→19:06)
[2017-04-21] MEDS: OMEGA-3 ACID ETHYL ESTERS 1 GM CAPSULE PO SCH (10:01)
[2017-04-21] MEDS: FERROUS SULFATE 325 MG TABLET PO SCH ×2 (10:01→19:06)
[2017-04-21] MEDS: LACTULOSE SYRUP 20 GM/30 ML UDCUP PO SCH ×4 (10:01→22:57)
[2017-04-21] MEDS: FUROSEMIDE 40 MG TABLET PO SCH (10:01)
[2017-04-21] MEDS: NADOLOL 40 MG TABLET PO SCH (10:03)
[2017-04-21] MEDS: CIPROFLOXACIN HCL 500 MG TABLET PO SCH ×2 (10:03→19:06)
[2017-04-21] MEDS: INSULIN LISPRO 100 UNIT/ML 3 ML VIAL SUBCUT PRN ×2 (13:41→19:07)
--- NOTE | 2017-04-21 17:37 | PDOC PROGRESS REPORT ---
Subjective Progress Note for:: 04/28/17 Subjective:: Patient was admitted yesterday for the management of hepatic encephalopathy, he is still very stuporous and confused, he has not had any bowel movement, will transition p.o. lactulose to lactulose enema Reason For Visit: ADVANCED CIRRHOSIS OF LIVER HEPATIC ENCEPHLOPATH Physical Exam Vital Signs: Temp Pulse Resp BP Pulse Ox 98.1 F 69 19 121/63 100 04/21/17 15:39 04/21/17 15:39 04/21/17 15:39 04/21/17 15:39 04/21/17 15:39 Intake & Output 04/20/17 04/21/17 04/22/17 06:59 06:59 06:59 Intake Total 568 767 9746 Output Total 850 225 Balance 250 23 979 Weight 95.5 kg General appearance: PRESENT: other - stupurous Respiratory exam: PRESENT: clear to auscultation magda Cardiovascular exam: PRESENT: +S1, +S2 GI/Abdominal exam: PRESENT: soft Neurological exam: PRESENT: altered Assessment & Plan - Diagnosis (1) Hepatic encephalopathy Is this a current diagnosis for this admission?: Yes Plan: .start lactulose enema (2) Alcoholic cirrhosis of liver with ascites Is this a current diagnosis for this admission?: Yes
[2017-04-21] MEDS: LACTULOSE SYRUP 20 GM/30 ML UDCUP PR SCH (17:53)
[2017-04-21] MEDS: ESCITALOPRAM OXALATE 10 MG TABLET PO SCH (22:57)
[2017-04-21] MEDS: INSULIN DETEMIR 100 UNIT/ML 3 ML PEN SUBCUT SCH (22:58)
[2017-04-22] MEDS: HYDRALAZINE HCL 25 MG TABLET PO SCH ×3 (06:48→21:36)
[2017-04-22] MEDS: LANSOPRAZOLE 30 MG TAB.RAP.DR PO SCH (06:48)
[2017-04-22] MEDS: LACTULOSE SYRUP 20 GM/30 ML UDCUP PR SCH ×2 (06:48→18:33)
[2017-04-22] MEDS: OMEGA-3 ACID ETHYL ESTERS 1 GM CAPSULE PO SCH (10:43)
[2017-04-22] MEDS: CIPROFLOXACIN HCL 500 MG TABLET PO SCH ×2 (10:44→18:26)
[2017-04-22] MEDS: FERROUS SULFATE 325 MG TABLET PO SCH ×2 (10:44→18:26)
[2017-04-22] MEDS: LACTULOSE SYRUP 20 GM/30 ML UDCUP PO SCH ×4 (10:44→21:36)
[2017-04-22] MEDS: NADOLOL 40 MG TABLET PO SCH (10:45)
[2017-04-22] MEDS: MAGNESIUM OXIDE 400 MG TABLET PO SCH (10:45)
[2017-04-22] MEDS: RIFAXIMIN 550 MG TABLET PO SCH ×2 (10:45→18:26)
[2017-04-22] MEDS: FUROSEMIDE 40 MG TABLET PO SCH (10:45)
[2017-04-22 18:56] LABS: ABSOLUTE BASOPHILS # (AUTO) 0.1 10^3/uL (0.0-0.2); ABSOLUTE EOSINOPHILS # (AUTO) 0.2 10^3/uL (0.0-0.6); ABSOLUTE LYMPHOCYTES (AUTO) 0.6 10^3/uL (0.5-4.7); ABSOLUTE MONOCYTES (AUTO) 0.7 10^3/uL (0.1-1.4); ABSOLUTE NEUT (AUTO) 3.3 10^3/uL (1.7-8.2); BASOPHILS % (AUTO) 1.3 % (0-2); EOSINOPHILS % (AUTO) 3.1 % (0-6); HEMATOCRIT 32.3 % (37.9-51.0); HEMOGLOBIN 11.1 g/dL (13.5-17.0); LYMPHOCYTES % (AUTO) 12.2 % (13-45); MEAN CORPUSCULAR HEMOGLOBIN 30.5 pg (27.0-33.4); MEAN CORPUSCULAR HGB CONC 34.3 g/dL (32.0-36.0); MEAN CORPUSCULAR VOLUME 89 fl (80-97); MONOCYTES % (AUTO) 14.8 % (3-13); RED BLOOD COUNT 3.63 10^6/uL (4.35-5.55); RED CELL DISTRIBUTION WIDTH 14.4 % (11.5-14.0); SEGMENTED NEUTROPHILS % (AUTO) 68.6 % (42-78); TOTAL CELLS COUNTED % (AUTO) 100 %; WHITE BLOOD COUNT 4.9 10^3/uL (4.0-10.5)
[2017-04-22 19:10] LABS: ALANINE AMINOTRANSFERASE 37 U/L (21-72); ALBUMIN 3.3 g/dL (3.5-5.0); ALKALINE PHOSPHATASE 58 U/L (38-126); ANION GAP 12 (5-19); ASPARTATE AMINO TRANSFERASE 55 U/L (17-59); BILIRUBIN,DIRECT 0.2 mg/dL (0.0-0.4); BILIRUBIN,TOTAL 0.5 mg/dL (0.2-1.3); BLOOD UREA NITROGEN 48 mg/dL (7-20); CARBON DIOXIDE 22 mmol/L (22-30); CHLORIDE 109 mmol/L (98-107); GLUCOSE 217 mg/dL (75-110); POTASSIUM 4.2 mmol/L (3.6-5.0); TOTAL PROTEIN 6.6 g/dL (6.3-8.2)
[2017-04-22 19:11] LABS: PLATELET COUNT 87 10^3/uL (150-450)
--- NOTE | 2017-04-22 21:03 | PDOC PROGRESS REPORT ---
Subjective Progress Note for:: 04/22/17 Subjective:: Patient was admitted when he presented with hepatic encephalopathy he was completely stuporous the last 2 days. Yesterday he was started on lactulose enema he had more than 3 bowel movement today, patient is alert, responsive communicative a big change from the last 2 days when he was admitted previously he had no bowel movement until today. The lactulose enema will be discontinued and is transitioned to p.o. lactulose. Reason For Visit: ADVANCED CIRRHOSIS OF LIVER HEPATIC ENCEPHLOPATH Physical Exam Vital Signs: Temp Pulse Resp BP Pulse Ox 97.4 F 57 L 18 145/69 H 100 04/22/17 15:17 04/22/17 15:17 04/22/17 15:17 04/22/17 15:17 04/22/17 15:17 Intake & Output 04/21/17 04/22/17 04/23/17 06:59 06:59 06:59 Intake Total 873 1429 2154 Output Total 850 225 4 Balance 23 1204 2150 Weight 102.6 kg General appearance: PRESENT: no acute distress Eye exam: PRESENT: PERRLA Respiratory exam: PRESENT: clear to auscultation magda Cardiovascular exam: PRESENT: +S1, +S2 GI/Abdominal exam: PRESENT: soft Neurological exam: PRESENT: alert, CN II-XII grossly intact Results Laboratory Results: 04/22/17 18:24 04/22/17 18:24 04/22/17 04/22/17 18:24 18:24 WBC 4.9 RBC 3.63 L Hgb 11.1 L Hct 32.3 L MCV 89 MCH 30.5 MCHC 34.3 RDW 14.4 H Plt Count 87 L Seg Neutrophils % 68.6 Lymphocytes % 12.2 L Monocytes % 14.8 H Eosinophils % 3.1 Basophils % 1.3 Absolute Neutrophils 3.3 Absolute Lymphocytes 0.6 Absolute Monocytes 0.7 Absolute Eosinophils 0.2 Absolute Basophils 0.1 Sodium 143.0 Potassium 4.2 Chloride 109 H Carbon Dioxide 22 Anion Gap 12 BUN 48 H Creatinine 2.61 H Est GFR ( Amer) 29 L Est GFR (Non-Af Amer) 24 L Glucose 217 H Calcium 9.0 Total Bilirubin 0.5 AST 55 ALT 37 Alkaline Phosphatase 58 Total Protein 6.6 Albumin 3.3 L Assessment & Plan - Diagnosis (1) Hepatic encephalopathy Is this a current diagnosis for this admission?: Yes (2) Alcoholic cirrhosis of liver with ascites Is this a current diagnosis for this admission?: Yes - Plan Summary Plan Summary: Patient to continue lactulose p.o., rifaximin
[2017-04-22] MEDS: INSULIN DETEMIR 100 UNIT/ML 3 ML PEN SUBCUT SCH (21:36)
[2017-04-22] MEDS: ESCITALOPRAM OXALATE 10 MG TABLET PO SCH (21:36)
[2017-04-23] MEDS: HYDRALAZINE HCL 25 MG TABLET PO SCH ×3 (06:22→22:02)
[2017-04-23] MEDS: LANSOPRAZOLE 30 MG TAB.RAP.DR PO SCH (06:22)
[2017-04-23] MEDS: OMEGA-3 ACID ETHYL ESTERS 1 GM CAPSULE PO SCH (10:31)
[2017-04-23] MEDS: RIFAXIMIN 550 MG TABLET PO SCH ×2 (10:31→18:02)
[2017-04-23] MEDS: NADOLOL 40 MG TABLET PO SCH (10:31)
[2017-04-23] MEDS: LACTULOSE SYRUP 20 GM/30 ML UDCUP PO SCH ×4 (10:31→22:03)
[2017-04-23] MEDS: CIPROFLOXACIN HCL 500 MG TABLET PO SCH ×2 (10:31→22:02)
[2017-04-23] MEDS: FUROSEMIDE 40 MG TABLET PO SCH (10:32)
[2017-04-23] MEDS: FERROUS SULFATE 325 MG TABLET PO SCH ×2 (10:32→17:52)
[2017-04-23] MEDS: MAGNESIUM OXIDE 400 MG TABLET PO SCH (10:32)
--- NOTE | 2017-04-23 20:40 | PDOC CONSULTATION ---
Consultation Consult Date: 04/23/17 Consult reason:: Acute on chronic kidney disease History of Present Illness Admission Date/PCP: 04/19/17 21:06 YOLI PAYAN MD History of Present Illness: DAVID SO is a 71 year old male, he has a history of chronic kidney disease stage 3, seen at the office by Dr. Robertson, alcohol liver cirrhosis, decompensated, complicated with hepatic encephalopathy, portal hypertension with ascites, esophageal varices, history of multiple admission for decompensated liver cirrhosis requiring abdominal paracentesis, recently admitted and discharged couple of days ago when he had abdominal paracentesis with 5 liters of ascites fluid removed. His brought him to emergency room because she said that he was altered and was not acting right. In the emergency room was evaluated, was found to have elevated serum ammonia level. He also was found to have an elevated creatinine. He was given lactulose to help with the ammonia levels. He has been having several bowel movements a day since he was admitted. Today he seems to be more alert and able to answer questions. At the time of examination he was alert and oriented x3. He did seem a little dehydrated at the time of examination. According to him he was staying hydrated prior to his admission. History was obtained from the patient at the time of examination. Past Medical History Cardiac Medical History: Reports: Coronary Artery Disease, Myocardial Infarction Pulmonary Medical History: Denies: Asthma, Bronchitis, Chronic Obstructive Pulmonary Disease (COPD), Pneumonia Neurological Medical History: Reports: Seizures - hx of 3 years ago x1 Endocrine Medical History: Reports: Diabetes Mellitus Type 2 Renal/ Medical History: Reports: Chronic Kidney Disease Stage III GI Medical History: Reports: Gastroesophageal Reflux Disease Musculoskeltal Medical History: Denies: Arthritis Psychiatric Medical History: Reports: Depression Past Surgical History Past Surgical History: Reports: Cardiac Catheterization - Bypassx4, Cholecystectomy, Coronary Artery Bypass Graft Social History Smoking Status: Never Smoker Frequency of Alcohol Use: Heavy Hx Recreational Drug Use: No Hx Prescription Drug Abuse: No Family History Parental Family History Reviewed: No Children Family History Reviewed: NA Sibling(s) Family History Reviewed.: NA Medication/Allergy Home Medications: Lactulose [Cephulac Syrup 20 gm/30 ml Udcup] 15 ml PO QID 05/22/12 Lansoprazole 30 mg PO DAILY 05/22/12 Nadolol [Corgard 40 mg Tablet] 20 mg PO DAILY 05/22/12 Ergocalciferol (Vitamin D2) [Vitamin D2] 50,000 unit PO TH@1000 PRN 03/21/17 Escitalopram Oxalate [Lexapro] 20 mg PO QHS 03/21/17 Fish Oil/Dha/Epa [Fish Oil 1,200 mg Fish Oil] 1 tab PO DAILY 03/21/17 Insulin Detemir [Levemir] 25 unit SQ QHS 03/21/17 Magnesium Oxide [Magnesium] 400 mg PO DAILY 03/21/17 Rifaximin [Xifaxan] 550 mg PO BID 03/21/17 Hydralazine HCl 25 mg PO Q8 04/09/17 Ciprofloxacin HCl [Cipro 250 mg Tablet] 1 tab PO BID #14 tab 04/16/17 Furosemide [Lasix 40 mg Tablet] 40 mg PO QAM #30 04/16/17 Ferrous Sulfate [Feosol 325 mg Tablet] 325 mg PO BID 04/19/17 Insulin Lispro [Humalog Insulin (Lispro) 100 unit/mL] See Protocol SQ MEALS 03/25 Ondansetron [Zofran Odt 4 mg Tablet] 4 mg SL TIDP PRN 04/19/17 Allergies/Adverse Reactions: No Known Allergies Allergy (Verified 04/14/17 07:48) Review of Systems Constitutional: ABSENT: anorexia, chills, fever(s), weakness Eyes: ABSENT: visual disturbances Cardiovascular: ABSENT: chest pain, edema Respiratory: ABSENT: cough, dyspnea, sputum Gastrointestinal: PRESENT: diarrhea - -since starting lactulose. ABSENT: nausea , vomiting Genitourinary: ABSENT: difficulty urinating, dysuria, hematuria Musculoskeletal: ABSENT: back pain, joint swelling, muscle weakness Neurological: PRESENT: confusion. ABSENT: dizziness, numbness, tingling, weakness Psychiatric: ABSENT: anxiety Hematologic/Lymphatic: PRESENT: easy bruising Physical Exam Vital Signs: Temp Pulse Resp BP Pulse Ox 97.5 F 62 16 170/60 H 100 04/23/17 14:42 04/23/17 14:42 04/23/17 14:42 04/23/17 14:42 04/23/17 14:42 Intake & Output 04/22/17 04/23/17 04/24/17 06:59 06:59 06:59 Intake Total 1429 3197 500 Output Total 225 6 Balance 1204 3191 500 Weight 102.6 kg General appearance: PRESENT: no acute distress, well-developed, well-nourished Eye exam: PRESENT: PERRLA. ABSENT: scleral icterus Mouth exam: PRESENT: dry mucosa, tongue midline Neck exam: PRESENT: full ROM. ABSENT: JVD Respiratory exam: PRESENT: clear to auscultation magda. ABSENT: accessory muscle use, chest wall tenderness, crackles, rales, rhonchi, wheezes Cardiovascular exam: PRESENT: RRR, +S1, +S2 GI/Abdominal exam: PRESENT: ascites, distended, firm, rigid. ABSENT: tenderness Extremities exam: ABSENT: pedal edema, tenderness Musculoskeletal exam: PRESENT: normal inspection. ABSENT: deformity, tenderness Neurological exam: PRESENT: alert, awake, oriented to person, oriented to place , oriented to time, oriented to situation Skin exam: PRESENT: dry, intact, warm Results Laboratory Results: 04/22/17 18:24 04/22/17 18:24 Assessment & Plan - Diagnosis (1) [id number] kidney injury Plan: patient kidney injury looks to be due to dehydration. Other possible causes could be worsening do to worsening hepatic function. Do not see a current infection that could be affecting the kidneys. Will get renal ultrasound and will hold lasix. Recommend that he orally rehydrate himself. Will reassess kidney function tomorrow. (2) Kidney disease, chronic, stage III (GFR 30-59 ml/min) Plan: looks to be getting worse discussed with him to rehydrate himself by drinking more water. Also told him that his lasix will be held. (3) Hypertension Qualifiers: Hypertension type: essential hypertension Qualified Code(s): I10 - Essential (primary) hypertension Plan: will look to increase hydralazine to 50mg TID. (4) Alcoholic cirrhosis of liver with ascites Is this a current diagnosis for this admission?: Yes (5) Hepatic encephalopathy Is this a current diagnosis for this admission?: Yes (6) Hyperammonemia Plan: looks to be improving on current lactulose dosage (8) Ascites due to alcoholic cirrhosis Plan: looks to have increased ascites since last paracentesis, currently noted in pain despite accumulation amount
[2017-04-23] MEDS: ESCITALOPRAM OXALATE 10 MG TABLET PO SCH (22:02)
[2017-04-23] MEDS: INSULIN LISPRO 100 UNIT/ML 3 ML VIAL SUBCUT PRN (22:03)
[2017-04-23] MEDS: INSULIN DETEMIR 100 UNIT/ML 3 ML PEN SUBCUT SCH (22:03)
--- NOTE | 2017-04-23 22:36 | PDOC PROGRESS REPORT ---
Subjective Progress Note for:: 04/23/17 Subjective:: Patient was seen by the bedside, he continues to respond to lactulose Reason For Visit: ADVANCED CIRRHOSIS OF LIVER HEPATIC ENCEPHLOPATH Physical Exam Vital Signs: Temp Pulse Resp BP Pulse Ox 97.5 F 62 16 170/60 H 100 04/23/17 14:42 04/23/17 19:00 04/23/17 14:42 04/23/17 14:42 04/23/17 14:42 Intake & Output 04/22/17 04/23/17 04/24/17 06:59 06:59 06:59 Intake Total 1429 3197 500 Output Total 225 6 Balance 1204 3191 500 Weight 102.6 kg General appearance: PRESENT: no acute distress Head exam: PRESENT: atraumatic, normocephalic Eye exam: PRESENT: conjunctiva pink, EOMI, PERRLA Ear exam: PRESENT: normal external ear exam Mouth exam: PRESENT: moist, tongue midline Neck exam: PRESENT: full ROM Cardiovascular exam: PRESENT: RRR, +S1 Pulses: PRESENT: normal dorsalis pedis pul, +2 pedal pulses bilateral Vascular exam: PRESENT: normal capillary refill GI/Abdominal exam: PRESENT: normal bowel sounds, soft. ABSENT: distended, guarding, mass, organolmegaly, rebound, tenderness Rectal exam: PRESENT: deferred Neurological exam: PRESENT: alert, awake, oriented to person, oriented to place , oriented to time, oriented to situation, CN II-XII grossly intact. ABSENT: motor sensory deficit Psychiatric exam: PRESENT: appropriate affect, normal mood. ABSENT: homicidal ideation, suicidal ideation Skin exam: PRESENT: dry, intact, warm. ABSENT: cyanosis, rash Results Laboratory Results: 04/22/17 18:24 04/22/17 18:24 Assessment & Plan - Diagnosis (1) Hepatic encephalopathy Is this a current diagnosis for this admission?: Yes (2) Alcoholic cirrhosis of liver with ascites Is this a current diagnosis for this admission?: Yes (3) Kidney disease, chronic, stage III (GFR 30-59 ml/min) Is this a current diagnosis for this admission?: Yes
[2017-04-24] MEDS: HYDRALAZINE HCL 25 MG TABLET PO SCH ×3 (05:17→22:18)
[2017-04-24] MEDS: LANSOPRAZOLE 30 MG TAB.RAP.DR PO SCH (05:17)
[2017-04-24 05:41] LABS: ALANINE AMINOTRANSFERASE 43 U/L (21-72); ALBUMIN 2.9 g/dL (3.5-5.0); ALKALINE PHOSPHATASE 60 U/L (38-126); ANION GAP 10 (5-19); ASPARTATE AMINO TRANSFERASE 50 U/L (17-59); BILIRUBIN,DIRECT 0.3 mg/dL (0.0-0.4); BILIRUBIN,TOTAL 0.5 mg/dL (0.2-1.3); BLOOD UREA NITROGEN 48 mg/dL (7-20); CALCIUM 8.6 mg/dL (8.4-10.2); CARBON DIOXIDE 20 mmol/L (22-30); CHLORIDE 107 mmol/L (98-107); GLUCOSE 117 mg/dL (75-110); POTASSIUM 3.5 mmol/L (3.6-5.0); SODIUM 136.9 mmol/L (137-145); TOTAL PROTEIN 6.2 g/dL (6.3-8.2)
--- NOTE | 2017-04-24 07:57 | RADIOLOGY REPORT (SQ) ---
EXAM DESCRIPTION: U/S RETROPERITON (RENAL/AORTA) COMPLETED DATE/TIME: 04/24/2017 7:15 am REASON FOR STUDY: MONSERRAT COMPARISON: Abdominal ultrasound 04/14/2017 CT abdomen pelvis 04/14/2017, 08/24/2016 Bilateral renal ultrasound 10/10/2016 TECHNIQUE: Dynamic and static grayscale images acquired of the kidneys and bladder and recorded on P ACS. Additional selected color Doppler and spectral images recorded. LIMITATIONS: Large patient FINDINGS: RIGHT KIDNEY: Normal size, 11 cm in length. Mild increased cortical echogenicity. No adam d or suspicious masses. No hydronephrosis. No calcifications. LEFT KIDNEY: Normal size, 11 cm in length. Mild increased cortical echogenicity. No solid or suspic ious masses. No hydronephrosis. No calcifications. BLADDER: No masses. OTHER FINDINGS: Small amount of ascites IMPRESSION: No hydronephrosis TECHNICAL DOCUMENTATION: JOB ID: [id number] [employer]- All Rights Reserved
[2017-04-24] MEDS: LACTULOSE SYRUP 20 GM/30 ML UDCUP PO SCH ×4 (09:18→22:18)
[2017-04-24] MEDS: NADOLOL 40 MG TABLET PO SCH (09:19)
[2017-04-24] MEDS: MAGNESIUM OXIDE 400 MG TABLET PO SCH (09:19)
[2017-04-24] MEDS: FERROUS SULFATE 325 MG TABLET PO SCH ×2 (09:19→17:23)
[2017-04-24] MEDS: OMEGA-3 ACID ETHYL ESTERS 1 GM CAPSULE PO SCH (09:20)
[2017-04-24] MEDS: CIPROFLOXACIN HCL 500 MG TABLET PO SCH ×2 (09:21→22:17)
[2017-04-24] MEDS: RIFAXIMIN 550 MG TABLET PO SCH ×2 (10:03→17:23)
--- NOTE | 2017-04-24 16:17 | PDOC PROGRESS REPORT ---
Subjective Subjective:: Patient was laying in bed with his by his bed side. She says that he seems more himself today then when they arrived. According the nurse taking care of him today his bottom is starting to became raw because he does not tell them when he is having a bowel movement. This causes him to sit for hours in his own stool. He has had more than three bowel movements today according to him and his . He denies SOB or abdominal pain. Reason For Visit: ADVANCED CIRRHOSIS OF LIVER HEPATIC ENCEPHLOPATH Physical Exam Vital Signs: Temp Pulse Resp BP Pulse Ox 97.9 F 65 14 143/56 H 99 04/24/17 08:00 04/24/17 08:00 04/24/17 08:00 04/24/17 08:00 04/24/17 08:00 Intake & Output 04/23/17 04/24/17 04/25/17 06:59 06:59 06:59 Intake Total 3197 3360 Output Total 6 Balance 3191 3360 General appearance: PRESENT: no acute distress, well-developed, well-nourished Eye exam: PRESENT: PERRLA. ABSENT: scleral icterus Neck exam: PRESENT: full ROM. ABSENT: JVD Respiratory exam: PRESENT: clear to auscultation magda. ABSENT: accessory muscle use, chest wall tenderness, crackles, rales, rhonchi, wheezes Cardiovascular exam: PRESENT: RRR, +S1, +S2 GI/Abdominal exam: PRESENT: ascites, distended, firm, rigid. ABSENT: tenderness Extremities exam: ABSENT: pedal edema, tenderness Musculoskeletal exam: PRESENT: normal inspection. ABSENT: tenderness Neurological exam: PRESENT: alert, awake, oriented to person, oriented to place , oriented to time, oriented to situation Psychiatric exam: PRESENT: appropriate affect, normal mood Skin exam: PRESENT: erythema, intact, rash Results Laboratory Results: 04/22/17 18:24 04/24/17 04:20 04/24/17 04:20 Sodium 136.9 L Potassium 3.5 L Chloride 107 Carbon Dioxide 20 L Anion Gap 10 BUN 48 H Creatinine 2.97 H Est GFR ( Amer) 25 L Est GFR (Non-Af Amer) 21 L Glucose 117 H Calcium 8.6 Total Bilirubin 0.5 AST 50 ALT 43 Alkaline Phosphatase 60 Total Protein 6.2 L Albumin 2.9 L Impressions: Renal Ultrasound 04/24/17 00:00 IMPRESSION: No hydronephrosis Assessment & Plan - Diagnosis (1) Kdrds-yb-umjqmat kidney injury Plan: Will start on NS at 50mL an hour for a day. U/S was negative for any findings for why he has worsening kidney disease (2) Hypokalemia Plan: will order 10mEQ of potassium, could be losing potassium from having diarrhea like bowel movements (3) Kidney disease, chronic, stage III (GFR 30-59 ml/min) Is this a current diagnosis for this admission?: Yes Plan: worsening (4) Hypertension Qualifiers: Hypertension type: essential hypertension Qualified Code(s): I10 - Essential (primary) hypertension Plan: varying, looks to be mostly controlled (5) Alcoholic cirrhosis of liver with ascites Is this a current diagnosis for this admission?: Yes (6) Hepatic encephalopathy Is this a current diagnosis for this admission?: Yes Plan: improved, he was A&Ox3 today (7) Hyperammonemia Plan: looks to be improving on current lactulose dosage, may need to have lactulose decreased
--- NOTE | 2017-04-24 16:41 | PDOC PROGRESS REPORT ---
Subjective Progress Note for:: 04/24/17 Subjective:: Patient is alert he has a lot of loose stool, we reduce lactulose to achieve 3 bowel movements daily Reason For Visit: ADVANCED CIRRHOSIS OF LIVER HEPATIC ENCEPHLOPATH Physical Exam Vital Signs: Temp Pulse Resp BP Pulse Ox 97.9 F 65 14 143/56 H 99 04/24/17 08:00 04/24/17 08:00 04/24/17 08:00 04/24/17 08:00 04/24/17 08:00 Intake & Output 04/23/17 04/24/17 04/25/17 06:59 06:59 06:59 Intake Total 3197 3360 Output Total 6 Balance 3191 3360 General appearance: PRESENT: no acute distress Eye exam: PRESENT: PERRLA Respiratory exam: PRESENT: clear to auscultation magda Cardiovascular exam: PRESENT: +S1, +S2 GI/Abdominal exam: PRESENT: soft Neurological exam: PRESENT: alert Results Laboratory Results: 04/22/17 18:24 04/24/17 04:20 04/24/17 04:20 Sodium 136.9 L Potassium 3.5 L Chloride 107 Carbon Dioxide 20 L Anion Gap 10 BUN 48 H Creatinine 2.97 H Est GFR ( Amer) 25 L Est GFR (Non-Af Amer) 21 L Glucose 117 H Calcium 8.6 Total Bilirubin 0.5 AST 50 ALT 43 Alkaline Phosphatase 60 Total Protein 6.2 L Albumin 2.9 L Impressions: Renal Ultrasound 04/24/17 00:00 IMPRESSION: No hydronephrosis Assessment & Plan - Diagnosis (1) Hepatic encephalopathy Is this a current diagnosis for this admission?: Yes (2) Alcoholic cirrhosis of liver with ascites Is this a current diagnosis for this admission?: Yes (3) Kidney disease, chronic, stage III (GFR 30-59 ml/min) Is this a current diagnosis for this admission?: Yes
[2017-04-24] MEDS: INSULIN LISPRO 100 UNIT/ML 3 ML VIAL SUBCUT PRN (17:32)
[2017-04-24] MEDS ORDERED: POTASSIUM CHLORIDE 10 MEQ TABLET.SA PO ONE (18:00)
[2017-04-24] MEDS: NORMAL SALINE 1000 ML 1,000 ML IV PRN (18:25)
[2017-04-24] MEDS: INSULIN DETEMIR 100 UNIT/ML 3 ML PEN SUBCUT SCH (22:15)
[2017-04-24] MEDS: ESCITALOPRAM OXALATE 10 MG TABLET PO SCH (22:17)
[2017-04-25 05:03] LABS: HEMATOCRIT 23.7 % (37.9-51.0); MEAN CORPUSCULAR HEMOGLOBIN 30.6 pg (27.0-33.4); MEAN CORPUSCULAR HGB CONC 34.9 g/dL (32.0-36.0); MEAN CORPUSCULAR VOLUME 88 fl (80-97); RED CELL DISTRIBUTION WIDTH 13.9 % (11.5-14.0)
[2017-04-25 05:09] LABS: ANION GAP 8 (5-19); BLOOD UREA NITROGEN 57 mg/dL (7-20); CALCIUM 8.1 mg/dL (8.4-10.2); CARBON DIOXIDE 19 mmol/L (22-30); CHLORIDE 108 mmol/L (98-107); GLUCOSE 133 mg/dL (75-110); SODIUM 134.8 mmol/L (137-145)
[2017-04-25 05:24] LABS: HEMOGLOBIN 8.3 g/dL (13.5-17.0); PLATELET COUNT 54 10^3/uL (150-450); WHITE BLOOD COUNT 2.9 10^3/uL (4.0-10.5)
[2017-04-25] MEDS: HYDRALAZINE HCL 25 MG TABLET PO SCH ×3 (05:27→22:13)
[2017-04-25] MEDS: LANSOPRAZOLE 30 MG TAB.RAP.DR PO SCH (05:27)
[2017-04-25] MEDS ORDERED: ERGOCALCIFEROL (VITAMIN D2) 50000 UNIT (1.25 MG) CAPSULE PO SCH (10:00)
[2017-04-25] MEDS: LACTULOSE SYRUP 20 GM/30 ML UDCUP PO SCH ×2 (10:09→22:13)
[2017-04-25] MEDS: RIFAXIMIN 550 MG TABLET PO SCH ×2 (10:09→17:42)
[2017-04-25] MEDS: FERROUS SULFATE 325 MG TABLET PO SCH ×2 (10:10→17:42)
[2017-04-25] MEDS: MAGNESIUM OXIDE 400 MG TABLET PO SCH (10:10)
[2017-04-25] MEDS: OMEGA-3 ACID ETHYL ESTERS 1 GM CAPSULE PO SCH (10:10)
[2017-04-25] MEDS: CIPROFLOXACIN HCL 500 MG TABLET PO SCH ×2 (10:10→22:13)
[2017-04-25] MEDS: NADOLOL 40 MG TABLET PO SCH (10:11)
[2017-04-25] MEDS: NORMAL SALINE 1000 ML 1,000 ML IV PRN (13:55)
[2017-04-25] MEDS: INSULIN LISPRO 100 UNIT/ML 3 ML VIAL SUBCUT PRN (17:41)
[2017-04-25 18:22] LABS: APPEARANCE,URINE CLEAR; BILIRUBIN,URINE NEGATIVE (NEGATIVE); COLOR,URINE YELLOW; GLUCOSE, URINE NEGATIVE (NEGATIVE); KETONES,URINE NEGATIVE (NEGATIVE); LEUKOCYTE ESTERASE,URINE NEGATIVE (NEGATIVE); NITRITE,URINE NEGATIVE (NEGATIVE); PROTEIN,URINE NEGATIVE (NEGATIVE); URINE SPECIFIC GRAVITY 1.012; UROBILINOGEN,URINE NEGATIVE mg/dL (<2.0)
--- NOTE | 2017-04-25 18:56 | PDOC PROGRESS REPORT ---
Subjective Progress Note for:: 04/25/17 Subjective:: Patient was laying in his bed. This time his was not at his bedside. At the time he was A&Ox3. He denied abdominal pain, SOB, or chest pain. According to the nurse his bowel movements have decreased since decreasing lactulose. She has not seen blood in his stools and the stools was not dark. Urine output is hard to determine due to incontinence. Reason For Visit: ADVANCED CIRRHOSIS OF LIVER HEPATIC ENCEPHLOPATH Physical Exam Vital Signs: Temp Pulse Resp BP Pulse Ox 97.6 F 61 16 130/34 H 99 04/25/17 15:44 04/25/17 15:44 04/25/17 15:44 04/25/17 15:44 04/25/17 15:44 Intake & Output 04/24/17 04/25/17 04/26/17 06:59 06:59 06:59 Intake Total 3360 2229 887 Output Total 200 Balance 3360 2029 887 Weight 106.2 kg General appearance: PRESENT: no acute distress, well-developed, well-nourished Mouth exam: PRESENT: dry mucosa, tongue midline Neck exam: PRESENT: full ROM. ABSENT: JVD Respiratory exam: PRESENT: clear to auscultation magda. ABSENT: accessory muscle use, chest wall tenderness, crackles, rales, rhonchi, wheezes Cardiovascular exam: PRESENT: RRR, +S1, +S2 GI/Abdominal exam: PRESENT: ascites, distended, firm, rigid. ABSENT: tenderness Extremities exam: ABSENT: pedal edema, tenderness Musculoskeletal exam: PRESENT: normal inspection. ABSENT: tenderness Neurological exam: PRESENT: alert, awake, oriented to person, oriented to place , oriented to time, oriented to situation Psychiatric exam: PRESENT: appropriate affect, normal mood Skin exam: PRESENT: dry, intact Results Laboratory Results: 04/25/17 04:20 04/25/17 04:20 04/25/17 04/25/17 04/25/17 04:20 04:20 17:52 WBC 2.9 L D RBC 2.70 L Hgb 8.3 L D Hct 23.7 L MCV 88 MCH 30.6 MCHC 34.9 RDW 13.9 Plt Count 54 L Sodium 134.8 L Potassium 4.0 Chloride 108 H Carbon Dioxide 19 L Anion Gap 8 BUN 57 H Creatinine 2.98 H Est GFR ( Amer) 25 L Est GFR (Non-Af Amer) 21 L Glucose 133 H Calcium 8.1 L Urine Color YELLOW Urine Appearance CLEAR Urine pH 5.0 Ur Specific [place] 1.012 Urine Protein NEGATIVE Urine Glucose (UA) NEGATIVE Urine Ketones NEGATIVE Urine Blood NEGATIVE Urine Nitrite NEGATIVE Ur Leukocyte Esterase NEGATIVE Urine WBC (Auto) 0 Urine RBC (Auto) 0 Impressions: Renal Ultrasound 04/24/17 00:00 IMPRESSION: No hydronephrosis Assessment & Plan - Diagnosis (1) Kovpg-do-ovhhymy kidney injury Plan: Will increase NS to 75mL an hour for a day. Further damage of the kidneys could be from prolonged antibiotic use. Getting a UA and ramos catheter. The ramos catheter will also help to keep track of urine output (2) Hypokalemia Plan: stable (3) Kidney disease, chronic, stage III (GFR 30-59 ml/min) Is this a current diagnosis for this admission?: Yes Plan: drawing PTH (4) Hypertension Qualifiers: Hypertension type: essential hypertension Qualified Code(s): I10 - Essential (primary) hypertension Plan: currently controlled (5) Alcoholic cirrhosis of liver with ascites Is this a current diagnosis for this admission?: Yes (6) Hepatic encephalopathy Is this a current diagnosis for this admission?: Yes (10) Metabolic acidosis Plan: currently stable, will start on sodium bicarb if it does not improve tomorrow (11) Anemia Plan: nurse is going to discuss with primary about what he wants to do.
--- NOTE | 2017-04-25 20:46 | PDOC PROGRESS REPORT ---
Subjective Progress Note for:: 04/25/17 Subjective:: Patient was admitted for hepatic encephalopathy, history of ascites from portal hypertension, the abdomen is distended again, he may need abdominal paracentesis Reason For Visit: ADVANCED CIRRHOSIS OF LIVER HEPATIC ENCEPHLOPATH Physical Exam Vital Signs: Temp Pulse Resp BP Pulse Ox 97.6 F 54 L 16 130/34 H 99 04/25/17 15:44 04/25/17 19:00 04/25/17 15:44 04/25/17 15:44 04/25/17 15:44 Intake & Output 04/24/17 04/25/17 04/26/17 06:59 06:59 06:59 Intake Total 3360 2229 887 Output Total 200 Balance 3360 9 887 Weight 106.2 kg General appearance: PRESENT: no acute distress Eye exam: PRESENT: PERRLA Respiratory exam: PRESENT: clear to auscultation magda Cardiovascular exam: PRESENT: +S1, +S2 GI/Abdominal exam: PRESENT: distended Neurological exam: PRESENT: alert Results Laboratory Results: 04/25/17 04:20 04/25/17 04:20 04/25/17 04/25/17 04/25/17 04:20 04:20 17:52 WBC 2.9 L D RBC 2.70 L Hgb 8.3 L D Hct 23.7 L MCV 88 MCH 30.6 MCHC 34.9 RDW 13.9 Plt Count 54 L Sodium 134.8 L Potassium 4.0 Chloride 108 H Carbon Dioxide 19 L Anion Gap 8 BUN 57 H Creatinine 2.98 H Est GFR ( Amer) 25 L Est GFR (Non-Af Amer) 21 L Glucose 133 H Calcium 8.1 L Urine Color YELLOW Urine Appearance CLEAR Urine pH 5.0 Ur Specific [place] 1.012 Urine Protein NEGATIVE Urine Glucose (UA) NEGATIVE Urine Ketones NEGATIVE Urine Blood NEGATIVE Urine Nitrite NEGATIVE Ur Leukocyte Esterase NEGATIVE Urine WBC (Auto) 0 Urine RBC (Auto) 0 Impressions: Renal Ultrasound 04/24/17 00:00 IMPRESSION: No hydronephrosis Assessment & Plan - Diagnosis (1) Hepatic encephalopathy Is this a current diagnosis for this admission?: Yes (2) Alcoholic cirrhosis of liver with ascites Is this a current diagnosis for this admission?: Yes (3) Kidney disease, chronic, stage III (GFR 30-59 ml/min) Is this a current diagnosis for this admission?: Yes
[2017-04-25] MEDS: ESCITALOPRAM OXALATE 10 MG TABLET PO SCH (22:13)
[2017-04-25] MEDS: INSULIN DETEMIR 100 UNIT/ML 3 ML PEN SUBCUT SCH (22:13)
[2017-04-26] MEDS: HYDRALAZINE HCL 25 MG TABLET PO SCH ×3 (06:28→22:20)
[2017-04-26] MEDS: LANSOPRAZOLE 30 MG TAB.RAP.DR PO SCH (06:28)
[2017-04-26 06:35] LABS: ABSOLUTE EOSINOPHILS # (AUTO) 0.1 10^3/uL (0.0-0.6); ABSOLUTE LYMPHOCYTES (AUTO) 0.3 10^3/uL (0.5-4.7); ABSOLUTE MONOCYTES (AUTO) 0.4 10^3/uL (0.1-1.4); ABSOLUTE NEUT (AUTO) 1.9 10^3/uL (1.7-8.2); BASOPHILS % (AUTO) 0.9 % (0-2); EOSINOPHILS % (AUTO) 2.8 % (0-6); HEMATOCRIT 23.2 % (37.9-51.0); HEMOGLOBIN 8.2 g/dL (13.5-17.0); LYMPHOCYTES % (AUTO) 11.6 % (13-45); MEAN CORPUSCULAR HEMOGLOBIN 30.8 pg (27.0-33.4); MEAN CORPUSCULAR HGB CONC 35.2 g/dL (32.0-36.0); MEAN CORPUSCULAR VOLUME 88 fl (80-97); MONOCYTES % (AUTO) 15.5 % (3-13); RED BLOOD COUNT 2.65 10^6/uL (4.35-5.55); RED CELL DISTRIBUTION WIDTH 14.1 % (11.5-14.0); SEGMENTED NEUTROPHILS % (AUTO) 69.2 % (42-78); TOTAL CELLS COUNTED % (AUTO) 100 %; WHITE BLOOD COUNT 2.7 10^3/uL (4.0-10.5)
[2017-04-26 06:40] LABS: ALANINE AMINOTRANSFERASE 34 U/L (21-72); ALBUMIN 2.3 g/dL (3.5-5.0); ALKALINE PHOSPHATASE 52 U/L (38-126); ANION GAP 7 (5-19); ASPARTATE AMINO TRANSFERASE 39 U/L (17-59); BILIRUBIN,DIRECT 0.2 mg/dL (0.0-0.4); BILIRUBIN,TOTAL 0.2 mg/dL (0.2-1.3); BLOOD UREA NITROGEN 65 mg/dL (7-20); CARBON DIOXIDE 19 mmol/L (22-30); CHLORIDE 108 mmol/L (98-107); GLUCOSE 135 mg/dL (75-110); POTASSIUM 4.4 mmol/L (3.6-5.0); SODIUM 134.4 mmol/L (137-145); TOTAL PROTEIN 5.1 g/dL (6.3-8.2)
[2017-04-26 07:03] LABS: PLATELET COUNT 52 10^3/uL (150-450)
[2017-04-26] MEDS: LACTULOSE SYRUP 20 GM/30 ML UDCUP PO SCH ×2 (10:19→22:20)
[2017-04-26] MEDS: FERROUS SULFATE 325 MG TABLET PO SCH ×2 (10:19→17:21)
[2017-04-26] MEDS: CIPROFLOXACIN HCL 500 MG TABLET PO SCH ×2 (10:19→22:22)
[2017-04-26] MEDS: RIFAXIMIN 550 MG TABLET PO SCH ×2 (10:20→17:21)
[2017-04-26] MEDS: MAGNESIUM OXIDE 400 MG TABLET PO SCH (10:20)
[2017-04-26] MEDS: NADOLOL 40 MG TABLET PO SCH (10:20)
[2017-04-26] MEDS: OMEGA-3 ACID ETHYL ESTERS 1 GM CAPSULE PO SCH (10:20)
--- NOTE | 2017-04-26 12:49 | PDOC PROGRESS REPORT ---
Subjective Progress Note for:: 04/26/17 Reason For Visit: This patient was seen today. He does not look good and he says so himself. He has had a good response to the lactulose and has increased frequency of loose stools.He has no appetite. Occasional nausea. Denies chest pains but has dyspnea with exertion.Abdomen is getting distended in spite of recent paracentesis 2-3 weeks ago. Denies any abdominal pains, fever or chills.Labs and meds reviewed with patient. Physical Exam Vital Signs: Temp Pulse Resp BP Pulse Ox 98.3 F 74 16 139/54 H 99 04/26/17 11:11 04/26/17 11:11 04/26/17 11:11 04/26/17 11:11 04/26/17 11:11 Intake & Output 04/25/17 04/26/17 04/27/17 06:59 06:59 06:59 Intake Total 2229 1318 Output Total 200 625 Balance 2028 693 Weight 106.2 kg General appearance: PRESENT: no acute distress, disheveled, obese Exam: looks sickly. Respiratory exam: PRESENT: clear to auscultation magda. ABSENT: crackles, rhonchi Cardiovascular exam: PRESENT: RRR, +S1, +S2 GI/Abdominal exam: PRESENT: ascites, distended, firm - with ascitic fluid., rigid. ABSENT: tenderness Extremities exam: ABSENT: pedal edema Neurological exam: PRESENT: oriented to person, oriented to place Skin exam: PRESENT: mottled. ABSENT: cyanosis, erythema Results Laboratory Results: 04/26/17 05:25 04/26/17 05:25 04/25/17 04/26/17 04/26/17 17:52 05:25 05:25 WBC 2.7 L RBC 2.65 L Hgb 8.2 L Hct 23.2 L MCV 88 MCH 30.8 MCHC 35.2 RDW 14.1 H Plt Count 52 L Seg Neutrophils % 69.2 Lymphocytes % 11.6 L Monocytes % 15.5 H Eosinophils % 2.8 Basophils % 0.9 Absolute Neutrophils 1.9 Absolute Lymphocytes 0.3 L Absolute Monocytes 0.4 Absolute Eosinophils 0.1 Absolute Basophils 0.0 Sodium Potassium Chloride Carbon Dioxide Anion Gap BUN Creatinine Est GFR ( Amer) Est GFR (Non-Af Amer) Glucose Calcium Total Bilirubin AST ALT Alkaline Phosphatase Total Protein Albumin PTH Intact 55.4 Urine Color YELLOW Urine Appearance CLEAR Urine pH 5.0 Ur Specific [place] 1.012 Urine Protein NEGATIVE Urine Glucose (UA) NEGATIVE Urine Ketones NEGATIVE Urine Blood NEGATIVE Urine Nitrite NEGATIVE Ur Leukocyte Esterase NEGATIVE Urine WBC (Auto) 0 Urine RBC (Auto) 0 04/26/17 05:25 WBC RBC Hgb Hct MCV MCH MCHC RDW Plt Count Seg Neutrophils % Lymphocytes % Monocytes % Eosinophils % Basophils % Absolute Neutrophils Absolute Lymphocytes Absolute Monocytes Absolute Eosinophils Absolute Basophils Sodium 134.4 L Potassium 4.4 Chloride 108 H Carbon Dioxide 19 L Anion Gap 7 BUN 65 H Creatinine 2.74 H Est GFR ( Amer) 28 L Est GFR (Non-Af Amer) 23 L Glucose 135 H Calcium 8.0 L Total Bilirubin 0.2 AST 39 ALT 34 Alkaline Phosphatase 52 Total Protein 5.1 L Albumin 2.3 L PTH Intact Urine Color Urine Appearance Urine pH Ur Specific [place] Urine Protein Urine Glucose (UA) Urine Ketones Urine Blood Urine Nitrite Ur Leukocyte Esterase Urine WBC (Auto) Urine RBC (Auto) Impressions: Renal Ultrasound 04/24/17 00:00 IMPRESSION: No hydronephrosis Assessment & Plan - Diagnosis (1) Cqywt-[id number] kidney injury Plan: No real improvement. Cautiously optimistic as he is showing signs of worsening cirrhosis and PHT. This might mean a change into a hepatorenal syndrome which would carry a very bad prognosis. 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 (2) Advanced cirrhosis of liver Plan: With progressive pancytopenia and increasing Ascites indicative of probablyrapidly worsening Cirrhosis. Discussed with who has talked with patient on DNR and would like to have that order placed. Also she was receptive for pallaitive care and hospice involvement and so I will make that referral. He would benefit from a therapeutic paracentesis as it should make him feel better in so many ways. Discussed with Dr Barrera who is covering for Dr Machado. (3) Alcoholic cirrhosis of liver with ascites Is this a current diagnosis for this admission?: Yes Plan: Progressive Ascites and should benefit from a paracentesis. (4) Anemia Plan: Will initiate work up.For epo later if needed. (5) Kidney disease, chronic, stage III (GFR 30-59 ml/min) Is this a current diagnosis for this admission?: Yes Plan: With MONSERRAT now.Status quo.Monitor closely. (6) Hypertension Qualifiers: Hypertension type: essential hypertension Qualified Code(s): I10 - Essential (primary) hypertension Plan: Controlled.
[2017-04-26 13:52] LABS: INTERNATIONAL RATION (INR) 1.22; PROTHROMBIN TIME 16.2 SEC (11.4-15.4)
[2017-04-26 14:06] LABS: IRON(TIBC) 37.6 ug/dL (49-181)
--- NOTE | 2017-04-26 21:52 | PDOC PROGRESS REPORT ---
Subjective Progress Note for:: 04/26/17 Subjective:: Patient is seen by the bedside, he may need abdominal paracentesis, the ascites is reaccumulating , was to be a DNR status Reason For Visit: ADVANCED CIRRHOSIS OF LIVER HEPATIC ENCEPHLOPATH Physical Exam Vital Signs: Temp Pulse Resp BP Pulse Ox 99.2 F 58 L 18 140/47 H 100 04/26/17 19:41 04/26/17 19:41 04/26/17 19:41 04/26/17 19:41 04/26/17 19:41 Intake & Output 04/25/17 04/26/17 04/27/17 06:59 06:59 06:59 Intake Total 2229 1318 1370 Output Total 200 625 650 Balance 2028 693 720 Weight 106.2 kg Eye exam: PRESENT: PERRLA Respiratory exam: PRESENT: clear to auscultation magda Cardiovascular exam: PRESENT: +S1, +S2 GI/Abdominal exam: PRESENT: distended Neurological exam: PRESENT: alert Results Laboratory Results: 04/26/17 05:25 04/26/17 05:25 04/26/17 04/26/17 04/26/17 05:25 05:25 05:25 WBC 2.7 L RBC 2.65 L Hgb 8.2 L Hct 23.2 L MCV 88 MCH 30.8 MCHC 35.2 RDW 14.1 H Plt Count 52 L Seg Neutrophils % 69.2 Lymphocytes % 11.6 L Monocytes % 15.5 H Eosinophils % 2.8 Basophils % 0.9 Absolute Neutrophils 1.9 Absolute Lymphocytes 0.3 L Absolute Monocytes 0.4 Absolute Eosinophils 0.1 Absolute Basophils 0.0 Sodium 134.4 L Potassium 4.4 Chloride 108 H Carbon Dioxide 19 L Anion Gap 7 BUN 65 H Creatinine 2.74 H Est GFR ( Amer) 28 L Est GFR (Non-Af Amer) 23 L Glucose 135 H Calcium 8.0 L Iron TIBC % Saturation Ferritin Total Bilirubin 0.2 AST 39 ALT 34 Alkaline Phosphatase 52 Total Protein 5.1 L Albumin 2.3 L PTH Intact 55.4 04/26/17 13:09 WBC RBC Hgb Hct MCV MCH MCHC RDW Plt Count Seg Neutrophils % Lymphocytes % Monocytes % Eosinophils % Basophils % Absolute Neutrophils Absolute Lymphocytes Absolute Monocytes Absolute Eosinophils Absolute Basophils Sodium Potassium Chloride Carbon Dioxide Anion Gap BUN Creatinine Est GFR ( Amer) Est GFR (Non-Af Amer) Glucose Calcium Iron 37.6 L TIBC 258 % Saturation 15 Ferritin 87.50 Total Bilirubin AST ALT Alkaline Phosphatase Total Protein Albumin PTH Intact Impressions: Renal Ultrasound 04/24/17 00:00 IMPRESSION: No hydronephrosis Assessment & Plan - Diagnosis (1) Hepatic encephalopathy Is this a current diagnosis for this admission?: Yes (2) Alcoholic cirrhosis of liver with ascites Is this a current diagnosis for this admission?: Yes (3) Kidney disease, chronic, stage III (GFR 30-59 ml/min) Is this a current diagnosis for this admission?: Yes - Plan Summary Plan Summary: DNR status, poor prognosis, continue treatment
[2017-04-26] MEDS: ESCITALOPRAM OXALATE 10 MG TABLET PO SCH (22:21)
[2017-04-26] MEDS: INSULIN DETEMIR 100 UNIT/ML 3 ML PEN SUBCUT SCH (22:22)
[2017-04-27] MEDS: LANSOPRAZOLE 30 MG TAB.RAP.DR PO SCH (06:06)
[2017-04-27] MEDS: HYDRALAZINE HCL 25 MG TABLET PO SCH ×3 (06:06→21:35)
[2017-04-27] MEDS: NORMAL SALINE 1000 ML 1,000 ML IV PRN ×2 (06:09→21:40)
[2017-04-27] MEDS: LACTULOSE SYRUP 20 GM/30 ML UDCUP PO SCH ×2 (09:39→21:40)
[2017-04-27] MEDS: NADOLOL 40 MG TABLET PO SCH (09:40)
[2017-04-27] MEDS: CIPROFLOXACIN HCL 500 MG TABLET PO SCH ×2 (09:40→21:40)
[2017-04-27] MEDS: OMEGA-3 ACID ETHYL ESTERS 1 GM CAPSULE PO SCH (09:40)
[2017-04-27] MEDS: FERROUS SULFATE 325 MG TABLET PO SCH ×2 (09:40→17:22)
[2017-04-27] MEDS: MAGNESIUM OXIDE 400 MG TABLET PO SCH (09:40)
--- NOTE | 2017-04-27 14:20 | PDOC PROGRESS REPORT ---
Subjective Progress Note for:: 04/27/17 Subjective:: Patient continue to respond adequately to Lactulose therapy. He remain lucid and appropriate in responses. No nausea, vomiting, or abdominal pain. No chest pain or difficulty with breathing. No dizziness. Reason For Visit: ADVANCED CIRRHOSIS OF LIVER HEPATIC ENCEPHLOPATH Physical Exam Vital Signs: Temp Pulse Resp BP Pulse Ox 98.4 F 86 16 128/38 H 100 04/27/17 11:53 04/27/17 11:53 04/27/17 11:53 04/27/17 11:53 04/27/17 11:53 Intake & Output 04/26/17 04/27/17 04/28/17 06:59 06:59 06:59 Intake Total 1318 2867 Output Total 625 1340 Balance 693 1527 Weight 111.6 kg General appearance: PRESENT: no acute distress, obese Head exam: PRESENT: atraumatic, normocephalic Mouth exam: PRESENT: moist Respiratory exam: PRESENT: clear to auscultation magda Cardiovascular exam: PRESENT: RRR. ABSENT: diastolic murmur, rubs, systolic murmur GI/Abdominal exam: PRESENT: ascites, distended, normal bowel sounds. ABSENT: tenderness Extremities exam: ABSENT: pedal edema Musculoskeletal exam: PRESENT: normal inspection Neurological exam: PRESENT: alert, awake, oriented to person, oriented to place , oriented to time, oriented to situation, CN II-XII grossly intact, other - No demonstrable asterixis.. ABSENT: motor sensory deficit Psychiatric exam: PRESENT: appropriate affect, normal mood. ABSENT: homicidal ideation, suicidal ideation Skin exam: PRESENT: dry, intact, warm. ABSENT: cyanosis, rash Results Laboratory Results: 04/26/17 05:25 04/26/17 05:25 04/26/17 13:09 Iron 37.6 L TIBC 258 % Saturation 15 Ferritin 87.50 Impressions: Renal Ultrasound 04/24/17 00:00 IMPRESSION: No hydronephrosis Assessment & Plan - Diagnosis (1) Alcoholic cirrhosis of liver with ascites Is this a current diagnosis for this admission?: Yes Plan: See covering attending physician orders. (2) Hepatic encephalopathy Is this a current diagnosis for this admission?: Yes Plan: See covering attending physician orders. (3) Ascites due to alcoholic cirrhosis Is this a current diagnosis for this admission?: Yes Plan: See covering attending physician orders. (4) CKD (chronic kidney disease) stage 4, GFR 15-29 ml/min Is this a current diagnosis for this admission?: Yes Plan: See covering attending physician orders. (5) Anemia in chronic kidney disease (CKD) Qualifiers: Chronic kidney disease stage: stage 4 (severe) Qualified Code(s): N18.4 - Chronic kidney disease, stage 4 (severe); D63.1 - Anemia in chronic kidney disease; D63.1 - Anemia in chronic kidney disease Is this a current diagnosis for this admission?: Yes Plan: See covering attending physician orders. - Time Time Spent with patient: 25-34 minutes Medications reviewed and adjusted accordingly: Yes Anticipated discharge: Home with Homehealth Within: Other - Inpatient Certification Based on my medical assessment, after consideration of the patient's comorbidities, presenting symptoms, or acuity I expect that the services needed warrant INPATIENT care.: Yes I certify that my determination is in accordance with my understanding of Medicare's requirements for reasonable and necessary INPATIENT services [42 CFR 412.3e].: Yes Medical Necessity: Need Close Monitoring Due to Risk of Patient Decompensation, Risk of Complication if Not Cared For in Hospital Post Hospital Care: D/C Pantograph 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
[2017-04-27] MEDS: INSULIN LISPRO 100 UNIT/ML 3 ML VIAL SUBCUT PRN ×2 (17:21→21:53)
[2017-04-27] MEDS: INSULIN DETEMIR 100 UNIT/ML 3 ML PEN SUBCUT SCH (21:40)
[2017-04-27] MEDS: ESCITALOPRAM OXALATE 10 MG TABLET PO SCH (21:40)
[2017-04-28 05:17] LABS: ABSOLUTE EOSINOPHILS # (AUTO) 0.1 10^3/uL (0.0-0.6); ABSOLUTE LYMPHOCYTES (AUTO) 0.4 10^3/uL (0.5-4.7); ABSOLUTE MONOCYTES (AUTO) 0.6 10^3/uL (0.1-1.4); ABSOLUTE NEUT (AUTO) 2.1 10^3/uL (1.7-8.2); BASOPHILS % (AUTO) 0.9 % (0-2); EOSINOPHILS % (AUTO) 2.4 % (0-6); HEMATOCRIT 24.2 % (37.9-51.0); HEMOGLOBIN 8.3 g/dL (13.5-17.0); LYMPHOCYTES % (AUTO) 12.7 % (13-45); MEAN CORPUSCULAR HEMOGLOBIN 30.6 pg (27.0-33.4); MEAN CORPUSCULAR HGB CONC 34.1 g/dL (32.0-36.0); MEAN CORPUSCULAR VOLUME 90 fl (80-97); MONOCYTES % (AUTO) 18.5 % (3-13); RED CELL DISTRIBUTION WIDTH 14.1 % (11.5-14.0); SEGMENTED NEUTROPHILS % (AUTO) 65.5 % (42-78); TOTAL CELLS COUNTED % (AUTO) 100 %; WHITE BLOOD COUNT 3.2 10^3/uL (4.0-10.5)
[2017-04-28 05:36] LABS: ALANINE AMINOTRANSFERASE 40 U/L (21-72); ALBUMIN 2.4 g/dL (3.5-5.0); ALKALINE PHOSPHATASE 55 U/L (38-126); ANION GAP 7 (5-19); ASPARTATE AMINO TRANSFERASE 50 U/L (17-59); BILIRUBIN,DIRECT 0.2 mg/dL (0.0-0.4); BILIRUBIN,TOTAL 0.3 mg/dL (0.2-1.3); BLOOD UREA NITROGEN 72 mg/dL (7-20); CALCIUM 8.4 mg/dL (8.4-10.2); CARBON DIOXIDE 17 mmol/L (22-30); CHLORIDE 112 mmol/L (98-107); GLUCOSE 114 mg/dL (75-110); POTASSIUM 4.5 mmol/L (3.6-5.0); TOTAL PROTEIN 5.4 g/dL (6.3-8.2)
[2017-04-28 05:46] LABS: PLATELET COUNT 59 10^3/uL (150-450)
[2017-04-28] MEDS: LANSOPRAZOLE 30 MG TAB.RAP.DR PO SCH (06:38)
[2017-04-28] MEDS: HYDRALAZINE HCL 25 MG TABLET PO SCH ×2 (06:38→15:30)
[2017-04-28] MEDS: FERROUS SULFATE 325 MG TABLET PO SCH ×2 (10:59→18:34)
[2017-04-28] MEDS: CIPROFLOXACIN HCL 500 MG TABLET PO SCH (10:59)
[2017-04-28] MEDS: LACTULOSE SYRUP 20 GM/30 ML UDCUP PO SCH (10:59)
[2017-04-28] MEDS: MAGNESIUM OXIDE 400 MG TABLET PO SCH (10:59)
[2017-04-28] MEDS: NADOLOL 40 MG TABLET PO SCH (11:00)
[2017-04-28] MEDS: OMEGA-3 ACID ETHYL ESTERS 1 GM CAPSULE PO SCH (11:00)
--- NOTE | 2017-04-28 11:57 | PDOC PROGRESS REPORT ---
Subjective Progress Note for:: 04/28/17 Subjective:: Patient remain on Lactulose therapy with adequate bowel movement. No nausea, vomiting, or abdominal pain. No chest pain or difficulty with breathing. No dizziness. Reason For Visit: ADVANCED CIRRHOSIS OF LIVER HEPATIC ENCEPHLOPATH Physical Exam Vital Signs: Temp Pulse Resp BP Pulse Ox 98.5 F 69 16 118/33 L 98 04/28/17 08:03 04/28/17 08:03 04/28/17 08:03 04/28/17 08:03 04/28/17 08:03 Intake & Output 04/27/17 04/28/17 04/29/17 06:59 06:59 06:59 Intake Total 2867 2393 Output Total 1340 750 Balance 1527 1643 Weight 111.6 kg 110.6 kg Physical Exam: General appearance: PRESENT: no acute distress, obese Head exam: PRESENT: atraumatic, normocephalic Mouth exam: PRESENT: moist Respiratory exam: PRESENT: clear to auscultation magda Cardiovascular exam: PRESENT: RRR. ABSENT: diastolic murmur, rubs, systolic murmur GI/Abdominal exam: PRESENT: ascites, distended, normal bowel sounds. ABSENT: tenderness Extremities exam: ABSENT: pedal edema Musculoskeletal exam: PRESENT: normal inspection Neurological exam: PRESENT: alert, awake, oriented to person, oriented to place , oriented to time, oriented to situation, CN II-XII grossly intact, other - No demonstrable asterixis.. ABSENT: motor sensory deficit Psychiatric exam: PRESENT: appropriate affect, normal mood. ABSENT: homicidal ideation, suicidal ideation Skin exam: PRESENT: dry, intact, warm. ABSENT: cyanosis, rash Results Laboratory Results: 04/28/17 04:40 04/28/17 04:40 04/28/17 04/28/17 04:40 04:40 WBC 3.2 L RBC 2.70 L Hgb 8.3 L Hct 24.2 L MCV 90 MCH 30.6 MCHC 34.1 RDW 14.1 H Plt Count 59 L Seg Neutrophils % 65.5 Lymphocytes % 12.7 L Monocytes % 18.5 H Eosinophils % 2.4 Basophils % 0.9 Absolute Neutrophils 2.1 Absolute Lymphocytes 0.4 L Absolute Monocytes 0.6 Absolute Eosinophils 0.1 Absolute Basophils 0.0 Sodium 136.0 L Potassium 4.5 Chloride 112 H Carbon Dioxide 17 L Anion Gap 7 BUN 72 H Creatinine 2.55 H Est GFR ( Amer) 30 L Est GFR (Non-Af Amer) 25 L Glucose 114 H Calcium 8.4 Total Bilirubin 0.3 AST 50 ALT 40 Alkaline Phosphatase 55 Total Protein 5.4 L Albumin 2.4 L Impressions: Renal Ultrasound 04/24/17 00:00 IMPRESSION: No hydronephrosis Assessment & Plan - Diagnosis (1) Alcoholic cirrhosis of liver with ascites Is this a current diagnosis for this admission?: Yes (2) Hepatic encephalopathy Is this a current diagnosis for this admission?: Yes (3) Ascites due to alcoholic cirrhosis Is this a current diagnosis for this admission?: Yes (4) CKD (chronic kidney disease) stage 4, GFR 15-29 ml/min Is this a current diagnosis for this admission?: Yes (5) Anemia in chronic kidney disease (CKD) Qualifiers: Chronic kidney disease stage: stage 4 (severe) Qualified Code(s): N18.4 - Chronic kidney disease, stage 4 (severe); D63.1 - Anemia in chronic kidney disease; D63.1 - Anemia in chronic kidney disease Is this a current diagnosis for this admission?: Yes - Time Time Spent with patient: 25-34 minutes Medications reviewed and adjusted accordingly: Yes Anticipated discharge: Home with Homehealth Within: Other - Inpatient Certification Based on my medical assessment, after consideration of the patient's comorbidities, presenting symptoms, or acuity I expect that the services needed warrant INPATIENT care.: Yes I certify that my determination is in accordance with my understanding of Medicare's requirements for reasonable and necessary INPATIENT services [42 CFR 412.3e].: Yes Medical Necessity: Need Close Monitoring Due to Risk of Patient Decompensation, Need For Continuous Telemetry Monitoring, Risk of Complication if Not Cared For in Hospital Post Hospital Care: D/C 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 Patient will probably undergo paracentesis tomorrow.
[2017-04-29] MEDS: ESCITALOPRAM OXALATE 10 MG TABLET PO SCH ×2 (00:52→21:46)
[2017-04-29] MEDS: LACTULOSE SYRUP 20 GM/30 ML UDCUP PO SCH ×3 (00:52→21:46)
[2017-04-29] MEDS: CIPROFLOXACIN HCL 500 MG TABLET PO SCH ×3 (00:52→21:45)
[2017-04-29] MEDS: HYDRALAZINE HCL 25 MG TABLET PO SCH ×3 (00:52→21:45)
[2017-04-29] MEDS: INSULIN DETEMIR 100 UNIT/ML 3 ML PEN SUBCUT SCH ×2 (00:53→21:46)
[2017-04-29] MEDS: NORMAL SALINE 1000 ML 1,000 ML IV PRN ×2 (02:35→17:04)
[2017-04-29] MEDS: LANSOPRAZOLE 30 MG TAB.RAP.DR PO SCH (06:19)
[2017-04-29] MEDS: NADOLOL 40 MG TABLET PO SCH (10:03)
[2017-04-29] MEDS: FERROUS SULFATE 325 MG TABLET PO SCH ×2 (10:04→17:04)
[2017-04-29] MEDS: OMEGA-3 ACID ETHYL ESTERS 1 GM CAPSULE PO SCH (10:04)
[2017-04-29] MEDS: MAGNESIUM OXIDE 400 MG TABLET PO SCH (10:04)
--- NOTE | 2017-04-29 13:40 | PDOC PROGRESS REPORT ---
Subjective Progress Note for:: 04/29/17 Reason For Visit: Seen patient today. He is less talkative .His at bedside.Decreased eating and a lot od sleeping. No altered mental status though as per .Had one loose bowel today so far. Denies any fever or chills.Admits to increasing abdominal distension with some difficulty to breath with exertion.No paracentesis was done over the week end. Physical Exam Vital Signs: Temp Pulse Resp BP Pulse Ox 98.6 F 57 L 16 118/37 L 100 04/29/17 11:37 04/29/17 11:37 04/29/17 11:37 04/29/17 11:37 04/29/17 11:37 Intake & Output 04/28/17 04/29/17 04/30/17 06:59 06:59 06:59 Intake Total 2393 3345 Output Total 750 1000 Balance 1643 2345 Weight 110.6 kg General appearance: PRESENT: no acute distress, disheveled Neck exam: ABSENT: meningismus, tenderness, thyromegaly, tracheal deviation Respiratory exam: PRESENT: clear to auscultation magda, crackles - scattered. ABSENT: rhonchi Cardiovascular exam: PRESENT: RRR, +S1, +S2 GI/Abdominal exam: PRESENT: ascites, distended, firm - with ascitic fluid., rigid. ABSENT: tenderness Extremities exam: ABSENT: pedal edema Neurological exam: PRESENT: oriented to person, oriented to place Skin exam: ABSENT: erythema, mottled Results Laboratory Results: 04/28/17 04:40 04/28/17 04:40 Impressions: Renal Ultrasound 04/24/17 00:00 IMPRESSION: No hydronephrosis Assessment & Plan - Diagnosis (1) Wtadi-ol-ylmmpqi kidney injury Plan: No labs done for today which I will order. Cautiously optimistic as he is showing signs of worsening cirrhosis and PHT. This might mean a change into a hepatorenal syndrome which would carry a very bad prognosis. Monitor.Not a candidate for CARDIOLOGY RN given his advanced liver failure. (2) Advanced cirrhosis of liver Plan: With progressive pancytopenia and increasing Ascites indicative of probably rapidly worsening Cirrhosis. Discussed with who has talked with patient on DNR and would like to have that order placed. Also she was receptive for palliative care and hospice involvement a. They are scheduled to see her and patient on saturday. He would benefit from a therapeutic paracentesis as it should make him feel better in so many ways. Discussed today with Dr Barrera who is covering for Dr Machado and he is going to order it. (3) Alcoholic cirrhosis of liver with ascites Is this a current diagnosis for this admission?: Yes Plan: Progressive Ascites and should benefit from a paracentesis. (4) Anemia Plan: No labs done. Will order one. (5) Kidney disease, chronic, stage III (GFR 30-59 ml/min) Is this a current diagnosis for this admission?: Yes Plan: With MONSERRAT now.Status quo.Monitor closely. (6) Hypertension Qualifiers: Hypertension type: essential hypertension Qualified Code(s): I10 - Essential (primary) hypertension Plan: Controlled.cut back hydralazine.
[2017-04-29 15:24] LABS: ABSOLUTE EOSINOPHILS # (AUTO) 0.1 10^3/uL (0.0-0.6); ABSOLUTE LYMPHOCYTES (AUTO) 0.4 10^3/uL (0.5-4.7); ABSOLUTE MONOCYTES (AUTO) 0.6 10^3/uL (0.1-1.4); ABSOLUTE NEUT (AUTO) 2.3 10^3/uL (1.7-8.2); EOSINOPHILS % (AUTO) 2.7 % (0-6); HEMATOCRIT 24.2 % (37.9-51.0); HEMOGLOBIN 8.1 g/dL (13.5-17.0); LYMPHOCYTES % (AUTO) 10.7 % (13-45); MEAN CORPUSCULAR HEMOGLOBIN 30.2 pg (27.0-33.4); MEAN CORPUSCULAR HGB CONC 33.5 g/dL (32.0-36.0); MEAN CORPUSCULAR VOLUME 90 fl (80-97); MONOCYTES % (AUTO) 16.8 % (3-13); RED BLOOD COUNT 2.69 10^6/uL (4.35-5.55); RED CELL DISTRIBUTION WIDTH 14.7 % (11.5-14.0); SEGMENTED NEUTROPHILS % (AUTO) 68.8 % (42-78); TOTAL CELLS COUNTED % (AUTO) 100 %; WHITE BLOOD COUNT 3.4 10^3/uL (4.0-10.5)
[2017-04-29 15:36] LABS: INTERNATIONAL RATION (INR) 1.27; PROTHROMBIN TIME 16.7 SEC (11.4-15.4)
[2017-04-29 15:46] LABS: PLATELET COUNT 67 10^3/uL (150-450)
--- NOTE | 2017-04-29 19:39 | PDOC PROGRESS REPORT ---
Subjective Progress Note for:: 04/29/17 Subjective:: Patient was seen by the bedside, he has severe distention of the abdomen, history of liver cirrhosis complicated with portal hypertension and ascites Reason For Visit: ADVANCED CIRRHOSIS OF LIVER HEPATIC ENCEPHLOPATH Physical Exam Vital Signs: Temp Pulse Resp BP Pulse Ox 97.7 F 57 L 16 114/40 L 100 04/29/17 15:55 04/29/17 15:55 04/29/17 15:55 04/29/17 15:55 04/29/17 15:55 Intake & Output 04/28/17 04/29/17 04/30/17 06:59 06:59 06:59 Intake Total 2393 3345 1018 Output Total 750 1000 400 Balance 1643 2345 618 Weight 110.6 kg General appearance: PRESENT: no acute distress Eye exam: PRESENT: PERRLA Respiratory exam: PRESENT: clear to auscultation magda Cardiovascular exam: PRESENT: +S1, +S2 GI/Abdominal exam: PRESENT: distended Neurological exam: PRESENT: alert Results Laboratory Results: 04/29/17 14:36 04/28/17 04:40 04/29/17 14:36 WBC 3.4 L RBC 2.69 L Hgb 8.1 L Hct 24.2 L MCV 90 MCH 30.2 MCHC 33.5 RDW 14.7 H Plt Count 67 L Seg Neutrophils % 68.8 Lymphocytes % 10.7 L Monocytes % 16.8 H Eosinophils % 2.7 Basophils % 1.0 Absolute Neutrophils 2.3 Absolute Lymphocytes 0.4 L Absolute Monocytes 0.6 Absolute Eosinophils 0.1 Absolute Basophils 0.0 Impressions: Renal Ultrasound 04/24/17 00:00 IMPRESSION: No hydronephrosis Assessment & Plan - Diagnosis (1) Hepatic encephalopathy Is this a current diagnosis for this admission?: Yes (2) Alcoholic cirrhosis of liver with ascites Is this a current diagnosis for this admission?: Yes Plan: Abdominal paracentesis is ordered if more than 5 L of fluid is removed, he will require 8g of albumin per liter of fluid removed more than 5 liters (3) Kidney disease, chronic, stage III (GFR 30-59 ml/min) Is this a current diagnosis for this admission?: Yes
[2017-04-30 05:18] LABS: ALANINE AMINOTRANSFERASE 51 U/L (21-72); ALBUMIN 2.4 g/dL (3.5-5.0); ALKALINE PHOSPHATASE 59 U/L (38-126); ANION GAP 7 (5-19); ASPARTATE AMINO TRANSFERASE 73 U/L (17-59); BILIRUBIN,DIRECT 0.1 mg/dL (0.0-0.4); BILIRUBIN,TOTAL 0.3 mg/dL (0.2-1.3); BLOOD UREA NITROGEN 79 mg/dL (7-20); CALCIUM 8.3 mg/dL (8.4-10.2); CARBON DIOXIDE 16 mmol/L (22-30); CHLORIDE 114 mmol/L (98-107); GLUCOSE 103 mg/dL (75-110); POTASSIUM 4.5 mmol/L (3.6-5.0); SODIUM 137.1 mmol/L (137-145); TOTAL PROTEIN 5.4 g/dL (6.3-8.2)
[2017-04-30 05:20] LABS: ABSOLUTE EOSINOPHILS # (AUTO) 0.1 10^3/uL (0.0-0.6); ABSOLUTE LYMPHOCYTES (AUTO) 0.4 10^3/uL (0.5-4.7); ABSOLUTE MONOCYTES (AUTO) 0.5 10^3/uL (0.1-1.4); ABSOLUTE NEUT (AUTO) 2.1 10^3/uL (1.7-8.2); EOSINOPHILS % (AUTO) 3.2 % (0-6); HEMATOCRIT 24.5 % (37.9-51.0); HEMOGLOBIN 8.3 g/dL (13.5-17.0); LYMPHOCYTES % (AUTO) 12.4 % (13-45); MEAN CORPUSCULAR HEMOGLOBIN 30.5 pg (27.0-33.4); MEAN CORPUSCULAR VOLUME 90 fl (80-97); MONOCYTES % (AUTO) 15.4 % (3-13); RED BLOOD COUNT 2.73 10^6/uL (4.35-5.55); TOTAL CELLS COUNTED % (AUTO) 100 %; WHITE BLOOD COUNT 3.1 10^3/uL (4.0-10.5)
[2017-04-30] MEDS: LANSOPRAZOLE 30 MG TAB.RAP.DR PO SCH (05:51)
[2017-04-30 06:04] LABS: PLATELET COUNT 70 10^3/uL (150-450)
[2017-04-30 10:52] LABS: FLUID APPEARANCE SLIGHTLY HAZY; FLUID COLOR STRAW; FLUID SOURCE ASCITES; FLUID TYPE PERITONEAL; FLUID VISCOSITY LIQUID
[2017-04-30] MEDS: LACTULOSE SYRUP 20 GM/30 ML UDCUP PO SCH ×2 (11:17→21:54)
[2017-04-30] MEDS: NADOLOL 40 MG TABLET PO SCH (11:18)
[2017-04-30] MEDS: MAGNESIUM OXIDE 400 MG TABLET PO SCH (11:18)
[2017-04-30] MEDS: CIPROFLOXACIN HCL 500 MG TABLET PO SCH (11:18)
[2017-04-30] MEDS: HYDRALAZINE HCL 25 MG TABLET PO SCH ×2 (11:19→21:54)
[2017-04-30] MEDS: FERROUS SULFATE 325 MG TABLET PO SCH ×2 (11:19→17:11)
[2017-04-30] MEDS: OMEGA-3 ACID ETHYL ESTERS 1 GM CAPSULE PO SCH (11:19)
--- NOTE | 2017-04-30 11:19 | RADIOLOGY REPORT (SQ) ---
EXAM DESCRIPTION: U/S ABD PARACENTESIS COMPLETED DATE/TIME: 04/30/2017 11:10 am REASON FOR STUDY: liver cirrhosis check ascities protein COMPARISON 04/16/2017 LIMITATIONS: None. PROCEDURE: After obtaining informed consent, the patient was brought to the ultrasound suite. The p rocedure was performed with the patient on a gurney. Ultrasound was used to identify a prominent poc ket of ascites in the right lower quadrant. An appropriate access site was selected. The patient wa s prepped and draped in usual sterile fashion. The access site was anesthetized with 9 mL 1% lidoca ine. A [employer] needle was advanced into the fluid. After aspiration of fluid the needle, th e catheter was advanced off the needle into the fluid. A total of 10,000 mL of cloudy straw-colored fluid was removed. The patient tolerated the procedure well left the department in satisfactory condi tion. Fluid specimens were sent for testing. IMPRESSION: Successful ultrasound-guided diagnostic and therapeutic paracentesis COMMENT: Patient medication list reviewed: Yes- Quality ID# [id number]:Eligible professional attests to doc umenting in the medical record they obtained, updated, or reviewed the patient's current medications. Quality ID #76: The patient was prepped and draped using maximum sterile barrier technique including cap, mask, sterile gown, sterile gloves, a large sterile sheet, hand hygiene, and 2% Chlorhexidine fo r cutaneous antisepsis. When ultrasound is used, sterile ultrasound techniques are followed requiring sterile gel and sterile probes. Quality ID #[id number]: Final reports for procedures using fluoroscopy that document radiation exposure dianelys dylan, or exposure time and number of fluorographic images (if radiation exposure indices are not avail able) TECHNICAL DOCUMENTATION: JOB ID: [id number] [employer]- All Rights Reserved
[2017-04-30] MEDS: NORMAL SALINE 1000 ML 1,000 ML IV PRN (13:09)
[2017-04-30] MEDS ORDERED: ALBUMIN HUMAN 150 ML IV ONE ×2 (13:30→15:00)
[2017-04-30] MEDS: INSULIN LISPRO 100 UNIT/ML 3 ML VIAL SUBCUT PRN ×2 (17:11→21:54)
--- NOTE | 2017-04-30 19:05 | PDOC PROGRESS REPORT ---
Subjective Progress Note for:: 04/30/17 Subjective:: Patient was laying in his bed feeling much better after his paracentesis. This morning he had 10L drained off abdomen. He is still having a couple bowel movements a day. Urine out put is also stable. He denies Chest pain, SOB, or abdominal pain. Reason For Visit: ADVANCED CIRRHOSIS OF LIVER HEPATIC ENCEPHLOPATH Physical Exam Vital Signs: Temp Pulse Resp BP Pulse Ox 97.6 F 55 L 16 123/37 L 100 04/30/17 11:33 04/30/17 14:00 04/30/17 11:33 04/30/17 11:33 04/30/17 11:33 Intake & Output 04/29/17 04/30/17 05/01/17 06:59 06:59 06:59 Intake Total 3345 2173 Output Total 1000 1325 Balance 2345 848 Weight 116.4 kg General appearance: PRESENT: no acute distress, well-developed, well-nourished Neck exam: PRESENT: full ROM. ABSENT: JVD Respiratory exam: PRESENT: clear to auscultation magda. ABSENT: accessory muscle use, chest wall tenderness, crackles, rales, rhonchi, wheezes Cardiovascular exam: PRESENT: RRR, +S1, +S2 GI/Abdominal exam: PRESENT: soft. ABSENT: ascites, distended, firm - with ascitic fluid., tenderness Extremities exam: ABSENT: pedal edema, tenderness Musculoskeletal exam: PRESENT: normal inspection. ABSENT: tenderness Neurological exam: PRESENT: alert, awake, oriented to person, oriented to place , oriented to time, oriented to situation Psychiatric exam: PRESENT: appropriate affect, normal mood Skin exam: PRESENT: dry, intact, warm Results Laboratory Results: 04/30/17 04:18 04/30/17 04:18 04/30/17 04/30/17 04/30/17 04:18 04:18 09:47 WBC 3.1 L RBC 2.73 L Hgb 8.3 L Hct 24.5 L MCV 90 MCH 30.5 MCHC 34.0 RDW 15.0 H Plt Count 70 L Seg Neutrophils % 68.0 Lymphocytes % 12.4 L Monocytes % 15.4 H Eosinophils % 3.2 Basophils % 1.0 Absolute Neutrophils 2.1 Absolute Lymphocytes 0.4 L Absolute Monocytes 0.5 Absolute Eosinophils 0.1 Absolute Basophils 0.0 Sodium 137.1 Potassium 4.5 Chloride 114 H Carbon Dioxide 16 L Anion Gap 7 BUN 79 H Creatinine 2.45 H Est GFR ( Amer) 32 L Est GFR (Non-Af Amer) 26 L Glucose 103 Calcium 8.3 L Total Bilirubin 0.3 AST 73 H ALT 51 Alkaline Phosphatase 59 Total Protein 5.4 L Albumin 2.4 L Fluid Type PERITONEAL Fluid Source ASCITES Fluid Color STRAW Fluid Appearance SLIGHTLY HAZY Fluid Viscosity LIQUID Fluid WBC 200 Fluid RBC 1170 Impressions: Renal Ultrasound 04/24/17 00:00 IMPRESSION: No hydronephrosis Paracentesis Ultrasound 04/30/17 00:00 IMPRESSION: Successful ultrasound-guided diagnostic and therapeutic paracentesis Assessment & Plan - Diagnosis (1) Dpwdm-pt-hyjgdxc kidney injury Plan: Creatinine is stable and fluid is going at a rate of 50mL. With recent paracentesis kidney function should improve. (2) Metabolic acidosis Plan: will start him on 650mg of sodium bicarb once daily (3) Kidney disease, chronic, stage III (GFR 30-59 ml/min) Is this a current diagnosis for this admission?: Yes (4) Hypertension Qualifiers: Hypertension type: essential hypertension Qualified Code(s): I10 - Essential (primary) hypertension Plan: currently controlled (5) Hypokalemia Plan: stable (6) Alcoholic cirrhosis of liver with ascites Is this a current diagnosis for this admission?: Yes Plan: recent paracentesis, awaiting consult for palliative care to inform the family (7) Hepatic encephalopathy Is this a current diagnosis for this admission?: Yes Plan: resolved (10) Ascites due to alcoholic cirrhosis Is this a current diagnosis for this admission?: Yes (11) Anemia Plan: stable on PO iron
[2017-04-30] MEDS ORDERED: SODIUM BICARBONATE 650 MG TABLET PO ONE (20:00)
--- NOTE | 2017-04-30 20:35 | PDOC PROGRESS REPORT ---
Subjective Progress Note for:: 04/30/17 Subjective:: Patient had abdominal paracentesis done today, 10 L of acetic fluid was drained , he also received albumin. Reason For Visit: ADVANCED CIRRHOSIS OF LIVER HEPATIC ENCEPHLOPATH Physical Exam Vital Signs: Temp Pulse Resp BP Pulse Ox 98.3 F 52 L 17 134/41 H 100 04/30/17 16:11 04/30/17 16:11 04/30/17 16:11 04/30/17 16:11 04/30/17 16:11 Intake & Output 04/29/17 04/30/17 05/01/17 06:59 06:59 06:59 Intake Total 3345 2173 963 Output Total 1000 1325 800 Balance 2345 848 163 Weight 116.4 kg General appearance: PRESENT: no acute distress Eye exam: PRESENT: PERRLA Respiratory exam: PRESENT: clear to auscultation magda Cardiovascular exam: PRESENT: +S1, +S2 GI/Abdominal exam: PRESENT: ascites Neurological exam: PRESENT: alert, CN II-XII grossly intact Results Laboratory Results: 04/30/17 04:18 04/30/17 04:18 04/30/17 04/30/17 04/30/17 04:18 04:18 09:47 WBC 3.1 L RBC 2.73 L Hgb 8.3 L Hct 24.5 L MCV 90 MCH 30.5 MCHC 34.0 RDW 15.0 H Plt Count 70 L Seg Neutrophils % 68.0 Lymphocytes % 12.4 L Monocytes % 15.4 H Eosinophils % 3.2 Basophils % 1.0 Absolute Neutrophils 2.1 Absolute Lymphocytes 0.4 L Absolute Monocytes 0.5 Absolute Eosinophils 0.1 Absolute Basophils 0.0 Sodium 137.1 Potassium 4.5 Chloride 114 H Carbon Dioxide 16 L Anion Gap 7 BUN 79 H Creatinine 2.45 H Est GFR ( Amer) 32 L Est GFR (Non-Af Amer) 26 L Glucose 103 Calcium 8.3 L Total Bilirubin 0.3 AST 73 H ALT 51 Alkaline Phosphatase 59 Total Protein 5.4 L Albumin 2.4 L Fluid Type PERITONEAL Fluid Source ASCITES Fluid Color STRAW Fluid Appearance SLIGHTLY HAZY Fluid Viscosity LIQUID Fluid WBC 200 Fluid RBC 1170 Impressions: Renal Ultrasound 04/24/17 00:00 IMPRESSION: No hydronephrosis Paracentesis Ultrasound 04/30/17 00:00 IMPRESSION: Successful ultrasound-guided diagnostic and therapeutic paracentesis Assessment & Plan - Diagnosis (1) Hepatic encephalopathy Is this a current diagnosis for this admission?: Yes (2) Alcoholic cirrhosis of liver with ascites Is this a current diagnosis for this admission?: Yes (3) Kidney disease, chronic, stage III (GFR 30-59 ml/min) Is this a current diagnosis for this admission?: Yes
[2017-04-30] MEDS: INSULIN DETEMIR 100 UNIT/ML 3 ML PEN SUBCUT SCH (21:54)
[2017-04-30] MEDS: ESCITALOPRAM OXALATE 10 MG TABLET PO SCH (21:54)
[2017-05-01] MEDS: LANSOPRAZOLE 30 MG TAB.RAP.DR PO SCH (05:26)
[2017-05-01 06:05] LABS: ALANINE AMINOTRANSFERASE 60 U/L (21-72); ALBUMIN 2.5 g/dL (3.5-5.0); ALKALINE PHOSPHATASE 57 U/L (38-126); ANION GAP 8 (5-19); ASPARTATE AMINO TRANSFERASE 91 U/L (17-59); BILIRUBIN,DIRECT 0.2 mg/dL (0.0-0.4); BILIRUBIN,TOTAL 0.2 mg/dL (0.2-1.3); BLOOD UREA NITROGEN 81 mg/dL (7-20); CALCIUM 8.5 mg/dL (8.4-10.2); CARBON DIOXIDE 17 mmol/L (22-30); CHLORIDE 115 mmol/L (98-107); GLUCOSE 115 mg/dL (75-110); SODIUM 139.5 mmol/L (137-145); TOTAL PROTEIN 5.5 g/dL (6.3-8.2)
[2017-05-01] MEDS ORDERED: SODIUM BICARBONATE 650 MG TABLET PO SCH (10:00)
--- NOTE | 2017-05-01 10:29 | PDOC PROGRESS REPORT ---
Subjective Progress Note for:: 05/01/17 Subjective:: Patient is currently doing fair Patient have a 10 L of the fluid is out Patient's denied any chest pain denied any shortness of the breath Reason For Visit: ADVANCED CIRRHOSIS OF LIVER HEPATIC ENCEPHLOPATH Physical Exam Vital Signs: Temp Pulse Resp BP Pulse Ox 97.6 F 81 16 121/67 98 05/01/17 03:45 05/01/17 03:45 05/01/17 03:45 05/01/17 03:45 05/01/17 03:45 Intake & Output 04/30/17 05/01/17 05/02/17 06:59 06:59 06:59 Intake Total 2173 1954 Output Total 1325 1350 Balance 848 604 Weight 116.4 kg 106.2 kg General appearance: PRESENT: no acute distress, well-developed, well-nourished Head exam: PRESENT: atraumatic, normocephalic Eye exam: PRESENT: conjunctiva pink, EOMI, PERRLA. ABSENT: scleral icterus Ear exam: PRESENT: normal external ear exam Mouth exam: PRESENT: moist, tongue midline Neck exam: PRESENT: full ROM. ABSENT: carotid bruit, JVD, lymphadenopathy, thyromegaly Respiratory exam: PRESENT: clear to auscultation magda Cardiovascular exam: PRESENT: RRR. ABSENT: diastolic murmur, rubs, systolic murmur Pulses: PRESENT: normal dorsalis pedis pul, +2 pedal pulses bilateral Vascular exam: PRESENT: normal capillary refill GI/Abdominal exam: PRESENT: ascites, distended, normal bowel sounds, soft. ABSENT: guarding, mass, organolmegaly, rebound, tenderness Rectal exam: PRESENT: deferred Neurological exam: PRESENT: alert, awake, oriented to person. ABSENT: motor sensory deficit Psychiatric exam: PRESENT: appropriate affect, normal mood. ABSENT: homicidal ideation, suicidal ideation Skin exam: PRESENT: dry, intact, warm. ABSENT: cyanosis, rash Results Laboratory Results: 04/30/17 04:18 05/01/17 04:23 04/30/17 05/01/17 09:47 04:23 Sodium 139.5 Potassium 5.0 Chloride 115 H Carbon Dioxide 17 L Anion Gap 8 BUN 81 H Creatinine 2.37 H Est GFR ( Amer) 33 L Est GFR (Non-Af Amer) 27 L Glucose 115 H Calcium 8.5 Total Bilirubin 0.2 AST 91 H ALT 60 Alkaline Phosphatase 57 Total Protein 5.5 L Albumin 2.5 L Fluid Type PERITONEAL Fluid Source ASCITES Fluid Color STRAW Fluid Appearance SLIGHTLY HAZY Fluid Viscosity LIQUID Fluid WBC 200 Fluid RBC 1170 Impressions: Renal Ultrasound 04/24/17 00:00 IMPRESSION: No hydronephrosis Paracentesis Ultrasound 04/30/17 00:00 IMPRESSION: Successful ultrasound-guided diagnostic and therapeutic paracentesis Assessment & Plan - Diagnosis (3) Alcoholic cirrhosis of liver with ascites Is this a current diagnosis for this admission?: Yes (4) Anemia in chronic kidney disease (CKD) Qualifiers: Chronic kidney disease stage: stage 4 (severe) Qualified Code(s): N18.4 - Chronic kidney disease, stage 4 (severe); D63.1 - Anemia in chronic kidney disease; D63.1 - Anemia in chronic kidney disease Is this a current diagnosis for this admission?: Yes (5) Hepatic encephalopathy Is this a current diagnosis for this admission?: Yes (7) Ascites due to alcoholic cirrhosis Is this a current diagnosis for this admission?: Yes (8) Type 2 diabetes mellitus Qualifiers: Diabetes mellitus complication status: with unspecified complications - Time Time Spent with patient: 15-24 minutes Medications reviewed and adjusted accordingly: Yes Anticipated discharge: SNF Within: Other - Inpatient Certification Medical Necessity: Need Close Monitoring Due to Risk of Patient Decompensation Post Hospital Care: D/C Preservationist Documentation - Plan Summary Plan Summary: Very extensive discussions with the patient and his son and pretty much discussed with the nephrology and GI and suggest most likely consider hospice and comfort careDue to the end-stage liver disease and worsening the kidney functions and hepatic encephalopathy and thrombocytopenia Patient sons wants patient sent to the penitentiary for the comfort care because patient's white unable to take care of at home Patient is a not a candidate for liver transplant as per discussed with Dr. Ernst
[2017-05-01] MEDS: HYDRALAZINE HCL 25 MG TABLET PO SCH (10:42)
[2017-05-01] MEDS: OMEGA-3 ACID ETHYL ESTERS 1 GM CAPSULE PO SCH (10:43)
[2017-05-01] MEDS: NADOLOL 40 MG TABLET PO SCH (10:43)
[2017-05-01] MEDS: MAGNESIUM OXIDE 400 MG TABLET PO SCH (10:43)
[2017-05-01] MEDS: FERROUS SULFATE 325 MG TABLET PO SCH ×2 (10:44→17:56)
[2017-05-01] MEDS: LACTULOSE SYRUP 20 GM/30 ML UDCUP PO SCH (10:45)
[2017-05-01 11:22] LABS: HEMATOCRIT 25.4 % (37.9-51.0); HEMOGLOBIN 8.8 g/dL (13.5-17.0); MEAN CORPUSCULAR HEMOGLOBIN 30.8 pg (27.0-33.4); MEAN CORPUSCULAR HGB CONC 34.6 g/dL (32.0-36.0); MEAN CORPUSCULAR VOLUME 89 fl (80-97); RED BLOOD COUNT 2.85 10^6/uL (4.35-5.55); RED CELL DISTRIBUTION WIDTH 14.6 % (11.5-14.0); WHITE BLOOD COUNT 2.6 10^3/uL (4.0-10.5)
[2017-05-01 11:31] LABS: PLATELET COUNT 69 10^3/uL (150-450)
--- NOTE | 2017-05-01 13:59 | Palliative Consultation Report ---
Consultation From:: ALISHA ALCANTARA Consult Reason: Palliative Care - HPI HPI: Appreciate Palliative Consult request for this patient who is admitted with end stage liver cirrhosis and kidney failure. He has had recent paracentesis for 5 liters fluid a couple of weeks ago and returned to the ER on 04/19/17 with altered mental status, increased ammonia level ( in spite of lactulose at home) , and return of ascites. He had repeat paracentesis on 04/30 for 10 liters of fluid and doctors have told family that future paracentesis procedures will be futile. He is DNR per order. and son are in total agreement for care options. At present, this patient is only awake a few minutes at a time, sleeping almost all of the time. He is more comfortable after paracentesis but still has some shoulder pain and discomfort from pressure according to family. He is eating only 2-3 bites per meal and drinking only sips of fluid. He is oriented when awake now but was very confused on admission. He does have frequent bowel movements due to the lactulose which increases his discomfort. His and son are at bedside and have spoken at length with Doctors. They understand that there is little that can be done at this point and want patient to have comfort measures only. They have thought about correction placement , but fear he cannot do any rehab and will be sent back to the hospital with any changes. His is unable to care for him at home and does not have help to turn him or change his depends. They are aware that his life expectancy at this time is very short and do not want his life prolonged. Patient is asleep in bed with jaundice color noted in sclera. Breath sounds are diminished but breathing is not labored at this time. He does not respond to name, no spontaneous movement noted with verbal stimuli or touch. Vital signs have been stable and he has not needed oxygen. Onset: Last week Onset/Duration: Gradual Quality of Pain: Fullness, Pressure Severity: Moderate Associated Symptoms: Diarrhea, Weakness Exacerbated by: Movement Past Medical History(Consults) - General Information Source: Patient, Relative, [facility] Records Home Medications: Lactulose [Cephulac Syrup 20 gm/30 ml Udcup] 15 ml PO QID 05/22/12 Lansoprazole 30 mg PO DAILY 05/22/12 Nadolol [Corgard 40 mg Tablet] 20 mg PO DAILY 05/22/12 Ergocalciferol (Vitamin D2) [Vitamin D2] 50,000 unit PO TH@1000 PRN 03/21/17 Escitalopram Oxalate [Lexapro] 20 mg PO QHS 03/21/17 Fish Oil/Dha/Epa [Fish Oil 1,200 mg Fish Oil] 1 tab PO DAILY 03/21/17 Insulin Detemir [Levemir] 25 unit SQ QHS 03/21/17 Magnesium Oxide [Magnesium] 400 mg PO DAILY 03/21/17 Rifaximin [Xifaxan] 550 mg PO BID 03/21/17 Hydralazine HCl 25 mg PO Q8 04/09/17 Ciprofloxacin HCl [Cipro 250 mg Tablet] 1 tab PO BID #14 tab 04/16/17 Furosemide [Lasix 40 mg Tablet] 40 mg PO QAM #30 04/16/17 Ferrous Sulfate [Feosol 325 mg Tablet] 325 mg PO BID 04/19/17 Insulin Lispro [Humalog Insulin (Lispro) 100 unit/mL] See Protocol SQ MEALS 03/25 Ondansetron [Zofran Odt 4 mg Tablet] 4 mg SL TIDP PRN 04/19/17 Allergies/Adverse Reactions: No Known Allergies Allergy (Verified 04/14/17 07:48) - Social History Lives with: Spouse/Significant other Family History: Reviewed & Not Pertinent Parental Family History Reviewed: No Children Family History Reviewed: No Sibling(s) Family History Reviewed.: No Smoking Status: Never Smoker Frequency of Alcohol Use: Heavy Hx Recreational Drug Use: No Hx Prescription Drug Abuse: No - Past Medical History Cardiac Medical History: Reports: Hx Coronary Artery Disease, Hx Heart Attack, Hx Hypertension Pulmonary Medical History: Denies: Hx Asthma, Hx Bronchitis, Hx COPD, Hx Pneumonia Neurological Medical History: Reports: Hx Seizures - hx of 3 years ago x1. Denies: Hx Cerebrovascular Accident Endocrine Medical History: Reports: Hx Diabetes Mellitus Type 2 Renal/ Medical History: Denies: Hx Peritoneal Dialysis GI Medical History: Reports: Hx Gastroesophageal Reflux Disease Musculoskeltal Medical History: Denies Hx Arthritis Psychiatric Medical History: Reports: Hx Anxiety, Hx Depression Hematology: Reports: Anemia - Surgical History Past Surgical History: Reports: Hx Cardiac Catheterization - Bypassx4, Hx Cholecystectomy, Hx Coronary Artery Bypass Graft - Immunizations Immunizations up to date: Yes Review of systems ROS unobtainable: due to mental statu Constitutional: Weakness Gastrointestinal: Abdomen distended, Diarrhea Geniturinary: Incontinence Musculoskeltal: Joint pain Ojective:Exam Vital Signs: Temp Pulse Resp BP Pulse Ox 97.7 F 53 L 16 119/53 L 100 05/01/17 08:12 05/01/17 08:12 05/01/17 08:12 05/01/17 08:12 05/01/17 08:12 Intake & Output 04/30/17 05/01/17 05/02/17 06:59 06:59 06:59 Intake Total 2173 1954 Output Total 1325 1350 Balance 848 604 Weight 116.4 kg 106.2 kg - General General Appearance: Lethargic In distress: None - HEENT Head: Normocephalic Eyes: Scleral icterus Conjunctiva: Icteric - Neck Neck: Normal - Respiratory Respiratory Status: No respiratory distress Breath sounds: Decreased air movement - Cardiovascular Rhythm: Bradycardia - Abdominal Distension: Distended Tenderness: Mckeon's sign - Extremities Upper extremity: Normal inspection Arm: Ecchymosis - Neurological Cognition: Other - lethargic - Skin Skin Temperature: Warm Skin Moisture: Dry Skin Color: Ecchymosis Objective-Diagnostic Laboratory: 05/01/17 10:52 05/01/17 04:23 05/01/17 05/01/17 04:23 10:52 WBC 2.6 L RBC 2.85 L Hgb 8.8 L Hct 25.4 L MCV 89 MCH 30.8 MCHC 34.6 RDW 14.6 H Plt Count 69 L Sodium 139.5 Potassium 5.0 Chloride 115 H Carbon Dioxide 17 L Anion Gap 8 BUN 81 H Creatinine 2.37 H Est GFR ( Amer) 33 L Est GFR (Non-Af Amer) 27 L Glucose 115 H Calcium 8.5 Total Bilirubin 0.2 AST 91 H ALT 60 Alkaline Phosphatase 57 Total Protein 5.5 L Albumin 2.5 L Plan and Recommendation Plan and Recommendation: Discussed options for care with and son. They are agreeable to SNF but would prefer [facility] or [facility]. They have concerns that patient would be sent back to hospital with symptom changes and aggressive care. I discussed the hospice care center with the family and they are in agreement that this is the best option to be sure patient is kept comfortable. They are very aware that his life expectancy is short since he is not eating or drinking and his liver disease has progressed as well as his kidney disease making diuresis difficult. Information sent to [facility] in [place], will transfer when patient accepted and bed available. [facility] nurse will facilitate this transfer. Family very grateful. - Time Spent with Patient Time spent with patient: 40 to 60 Minutes Time: 60 min Greater then 50% spent on Counseling & Coordination of Care: 60 min
[2017-05-01 16:39] VITALS: BP 150/55
--- NOTE | 2017-05-02 15:01 | DISCHARGE SUMMARY E ---
Discharge Summary NAME: DAVID SO : 1945 AGE: 71Y ADMITTED: 04/20/2017 DISCHARGED: 05/01/2017 ADMITTING DIAGNOSES: 1. Hepatic encephalopathy. 2. 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 3. Acute renal failure on chronic kidney disease. 4. Thrombocytopenia and pancytopenia due to the cirrhosis of the liver. 5. Type 2 diabetes mellitus. 6. Hypertension. 7. History of seizure disorder. DISCHARGE DIAGNOSES: 1. End-stage liver disease. 2. Recurrent ascites due to the end-stage liver disease due to the alcoholic cirrhosis of the liver. 3. Pancytopenia due to the end-stage liver disease. 4. Acute renal failure on chronic kidney disease. 5. Hypoalbuminemia. 6. Hepatic encephalopathy due to the above conditions. 7. History of alcoholism. 8. Hypertension. 9. Type 2 diabetes mellitus. 10. Altered mental status due to the above conditions. CONSULTATIONS: Dr. Robertson, sand blaster. DIAGNOSTIC STUDIES: The patient's lab is; WBC 2.6, hemoglobin is 8.8, platelets 69. Chemistry; sodium 139, potassium is 5.0, BUN is 81, creatinine is 2.37, AST is 91, ALT is 60. MEDICATIONS: The patient's medications currently; 1. Iron tablet p.o. daily. 2. Hydralazine 25 mg p.o. twice daily. 3. 20 mg p.o. daily. 4. Lexapro 20 mg p.o. daily. 5. Lactulose 20 grams p.o. q.8 daily. 6. Lasix 40 mg p.o. daily. 7. Sodium bicarb 650 mg p.o. daily. 8. Levemir 25 units at bedtime daily. 9. Prevacid 30 mg p.o. daily. 10. Magnesium 400 mg p.o. daily. 11. Sliding scale with protocol. HOSPITAL COURSE: This is a 71-year-old male with a significant history of alcoholic cirrhosis of the liver with end-stage disease with a history of recurrent in the last couple of months getting worse. Removing more than 4 liters of fluid in the last 1 month with rapid increase in the abdominal distention and ascites with a thrombocytopenia and pancytopenia and acute renal failure. Admitted several times in hospitals with hepatic encephalopathy and recurrent ascites. evaluations done by Dr. Ernst, the automobile travel club counselor, and also evaluations by nephrology. The patient is not a candidate for liver transplant as per discussion with Dr. Ernst and the patient is not a candidate for any dialysis per nephrology. The patient is currently more worsening disease since the last several months and the patient's deteriorating the condition. Upon discussing with the patient's and the son concerning the patient's current condition, the patient expressed a DNR and DNI and the other consultants the patient is pretty much end-stage disease on the liver and worsening kidney functions syndromes with a thrombocytopenia with multiple comorbidities and a poor prognosis, and not a candidate for liver transplant. At this stage the patient was considered to be a comfort and hospice care and the family agreed and at this point. Family decided to send to the [facility] with the above medications with p.r.n. pain medications as the patient is more comfortable. The patient's life expectancy is less than 6 months as per chronic prognosis. The patient is currently otherwise stable. A very extensive discussion with the patient's family including the son and the , and agreed with the hospital care and the comfort cares. DICTATING PHYSICIAN: YOLI PAYAN M.D. [id number] PHY#: [id number] ID: [id number] JOB#: [id number] ACCT: [id number] cc:YOLI PAYAN M.D. >
== END 2017-05-01 21:30 | disposition short-term general hospital (02) | DRG 433 ==
LOC: ER 17:13 → EH 21:06 → 4N 22:02
PROVIDERS: ADMIT Family Medicine; ATTEND Family Medicine
PROC: 0W9G3ZX Drainage of Peritoneal Cavity, Percutaneous Approach, Diagnostic (ICD-10-PCS; principal; 2017-04-30)
PROC: BW40ZZZ Ultrasonography of Abdomen (ICD-10-PCS; 2017-04-30)
DX: K70.31 Alcoholic cirrhosis of liver with ascites (principal); D61.818 Other pancytopenia; N17.9 Acute kidney failure, unspecified; K76.6 Portal hypertension; I85.10 Secondary esophageal varices without bleeding; E87.2 Acidosis; N18.4 Chronic kidney disease, stage 4 (severe); K72.90 Hepatic failure, unspecified without coma; Z51.5 Encounter for palliative care; Z66 Do not resuscitate; E11.22 Type 2 diabetes mellitus with diabetic chronic kidney disease; I12.9 Hypertensive chronic kidney disease with stage 1 through stage 4 chronic kidney disease, or unspecified chronic kidney disease; D69.59 Other secondary thrombocytopenia; I25.10 Atherosclerotic heart disease of native coronary artery without angina pectoris; E87.6 Hypokalemia; K21.9 Gastro-esophageal reflux disease without esophagitis; F32.9 Major depressive disorder, single episode, unspecified; F41.9 Anxiety disorder, unspecified; D63.1 Anemia in chronic kidney disease; F10.20 Alcohol dependence, uncomplicated; E86.0 Dehydration; I25.2 Old myocardial infarction; Z79.4 Long term (current) use of insulin; Z90.49 Acquired absence of other specified parts of digestive tract; Z95.1 Presence of aortocoronary bypass graft; Z79.899 Other long term (current) drug therapy
CPT/HCPCS: 36415; 49083; 76770; 80048; 80053; 81001; 82042; 82140; 82550; 82553; 82728; 82962; 83540; 83550; 83970; 84484; 85025; 85027; 85610; 85730; 87070; 87075; 87205; 89050; 93005; 93010; 99285; A9270-GY; G8978-GP; G8979-GP; J1815; J3490; J7030; P9047